=== PATIENT | male | born 1950 | race Caucasian/White ===

== ENCOUNTER → 2018-04-15 11:15 | Outpatient (CLI) | payer MEDICARE, OTHER, SELFPAY ==
[2018-04-15 13:24] LABS: AST(SGOT) 30 U/L (15-37); Alanine Aminotransfer ALT/SGPT 40 U/L (16-61); Alkaline Phosphatase 58 U/L (45-117); Anion Gap 13 (5-15); BUN 26 mg/dL (7-18); BUN/Creat Ratio 21.7 RATIO (10-20); Calcium,Total 9.1 mg/dL (8.5-10.1); Chloride 101 mmol/L (98-107); Cholesterol 182 mg/dL (200); EST Glomerular Filtration Rate 64 mL/min (>60); Est Glom Filt Rate - Afr Amer 78 mL/min (>60); Globulin 4.1 g/dL (2.2-4.2); Glucose 107 mg/dL (74-106); High Density Lipoprotein 42 mg/dL; PSA,Total - Annual Screen 2.57 ng/mL (0.00-4.00); Potassium 4.1 mmol/L (3.5-5.1); Protein, Total 8.1 g/dL (6.4-8.2); Sodium Level 138 mmol/L (136-145); Triglycerides 121 mg/dL; Very Low Density Lipoprotein 24 mg/dL (5-40)
== END ==
PROVIDERS: Family Provider Family Medicine; PCP Family Medicine; Visit Provider Family Medicine
DX: E11.9 Type 2 diabetes mellitus without complications (principal); Z12.5 Encounter for screening for malignant neoplasm of prostate
CPT/HCPCS: 36415; 80053; 80061; 84153; G0103

== ENCOUNTER → 2018-07-16 10:19 | Outpatient (CLI) | payer MEDICARE, OTHER, SELFPAY ==
--- NOTE | 2018-07-16 10:23 | RAD_ITS ---
STUDY: X-RAY - LEFT WRIST REASON FOR EXAM: Male, 67 years old. Pain TECHNIQUE: Three view(s) of the LEFT wrist were obtained. COMPARISON: None. FINDINGS: Bones: There are no acute osseous abnormalities. There is rotatory subluxation of the scaphoid. Joints: There is widening of the scapholunate joint. There is narrowing of the radiocarpal joint. Soft tissues: The soft tissues are unremarkable. Foreign body: None RAD/Wrist min 3 Views IMPRESSION: There is widening of the scapholunate joint consistent with chronic ligamentous injury. There are mild degenerative changes at the radioscaphoid joint. Electronically Signed: Aleida Arce MD at 10:56 EDT Tel Direct: [phone], Service support ,
== END ==
PROVIDERS: Family Provider Family Medicine; PCP Family Medicine; Referring Provider Family Medicine; Visit Provider Family Medicine
DX: M25.532 Pain in left wrist (principal)
CPT/HCPCS: 73110

== ENCOUNTER → 2019-01-15 | Outpatient (CLI) | payer MEDICARE, SELFPAY ==
[2019-01-15 10:42] LABS: ALB/GLOB Ratio 1.2 RATIO (0.9-2.4); AST(SGOT) 26 U/L (15-37); Alanine Aminotransfer ALT/SGPT 39 U/L (16-61); Alkaline Phosphatase 58 U/L (45-117); Anion Gap 5 (5-15); BUN 23 mg/dL (7-18); BUN/Creat Ratio 21.1 RATIO (10-20); Calcium,Total 8.7 mg/dL (8.5-10.1); Chloride 104 mmol/L (98-107); Cholesterol 185 mg/dL (200); Creatinine, Serum 1.09 mg/dL (0.70-1.30); EST Glomerular Filtration Rate 72 mL/min (>60); Est Glom Filt Rate - Afr Amer 87 mL/min (>60); Globulin 3.3 g/dL (2.2-4.2); Glucose 133 mg/dL (74-106); High Density Lipoprotein 43 mg/dL; Potassium 4.1 mmol/L (3.5-5.1); Protein, Total 7.3 g/dL (6.4-8.2); Sodium Level 135 mmol/L (136-145); Thyroid Stim Hormone (TSH) 1.08 uIU/mL (0.358-3.74); Triglycerides 142 mg/dL; Very Low Density Lipoprotein 28 mg/dL (5-40)
== END | disposition home or self-care (01) ==
PROVIDERS: Family Provider Family Medicine; PCP Family Medicine; Referring Provider Family Medicine; Visit Provider Family Medicine
DX: E11.9 Type 2 diabetes mellitus without complications (principal)
CPT/HCPCS: 36415; 80053; 80061; 84403; 84443

== ENCOUNTER → 2019-07-21 | Outpatient (CLI) | payer MEDICARE, BC, SELFPAY ==
[2019-07-21 12:35] LABS: AST(SGOT) 19 U/L (15-37); Alanine Aminotransfer ALT/SGPT 39 U/L (16-61); Alkaline Phosphatase 67 U/L (45-117); Anion Gap 7 (5-15); BUN 22 mg/dL (7-18); BUN/Creat Ratio 16.7 RATIO (10-20); Calcium,Total 9.5 mg/dL (8.5-10.1); Chloride 103 mmol/L (98-107); Cholesterol 191 mg/dL (200); Creatinine, Serum 1.32 mg/dL (0.70-1.30); EST Glomerular Filtration Rate 57 mL/min (>60); Est Glom Filt Rate - Afr Amer 69 mL/min (>60); Globulin 4.1 g/dL (2.2-4.2); Glucose 226 mg/dL (74-106); High Density Lipoprotein 45 mg/dL; Potassium 4.5 mmol/L (3.5-5.1); Protein, Total 8.1 g/dL (6.4-8.2); Sodium Level 136 mmol/L (136-145); Triglycerides 122 mg/dL; Very Low Density Lipoprotein 24 mg/dL (5-40)
== END | disposition home or self-care (01) ==
LOC: MFPLAB 10:38
PROVIDERS: Family Provider Family Medicine; PCP Family Medicine; Visit Provider Family Medicine
DX: E11.9 Type 2 diabetes mellitus without complications (principal)
CPT/HCPCS: 36415; 80053; 80061

== ENCOUNTER → 2020-01-22 09:49 | Outpatient (CLI) | payer MEDICARE, BC, SELFPAY ==
[2020-01-22 12:31] LABS: AST(SGOT) 29 U/L (15-37); Alanine Aminotransfer ALT/SGPT 46 U/L (16-61); Albumin, Serum 3.9 g/dL (3.2-5.0); Alkaline Phosphatase 57 U/L (45-117); Anion Gap 5 (5-15); BUN 23 mg/dL (7-18); BUN/Creat Ratio 19.5 RATIO (10-20); Calcium,Total 9.1 mg/dL (8.5-10.1); Chloride 106 mmol/L (98-107); Cholesterol 146 mg/dL (200); Creatinine, Serum 1.18 mg/dL (0.70-1.30); EST Glomerular Filtration Rate 65 mL/min (>60); Est Glom Filt Rate - Afr Amer 79 mL/min (>60); Globulin 3.8 g/dL (2.2-4.2); Glucose 112 mg/dL (74-106); High Density Lipoprotein 46 mg/dL; Potassium 4.2 mmol/L (3.5-5.1); Protein, Total 7.7 g/dL (6.4-8.2); Sodium Level 138 mmol/L (136-145); Thyroid Stim Hormone (TSH) 1.16 uIU/mL (0.358-3.74); Triglycerides 82 mg/dL; Very Low Density Lipoprotein 16 mg/dL (5-40)
== END ==
PROVIDERS: PCP Family Medicine; Visit Provider Family Medicine
DX: E11.9 Type 2 diabetes mellitus without complications (principal)
CPT/HCPCS: 36415; 80053; 80061; 84403; 84443

== ENCOUNTER → 2020-08-25 10:09 | Outpatient (CLI) | payer MEDICARE, BC, SELFPAY ==
[2020-08-25 12:36] LABS: Vitamin D,25 Hydroxy 53.1 ng/mL
== END ==
PROVIDERS: PCP Family Medicine; Referring Provider Family Medicine; Visit Provider Family Medicine
DX: E55.9 Vitamin D deficiency, unspecified (principal)
CPT/HCPCS: 36415; 82306

== ENCOUNTER → 2020-12-22 09:31 | Outpatient (CLI) | payer MEDICARE, BC, SELFPAY ==
[2020-12-24 11:21] LABS: ALB/GLOB Ratio 1.1 RATIO (0.9-2.4); AST(SGOT) 57 U/L (15-37); Alanine Aminotransfer ALT/SGPT 103 U/L (16-61); Albumin, Serum 4.1 g/dL (3.2-5.0); Alkaline Phosphatase 91 U/L (45-117); Anion Gap 6 (5-15); BUN 19 mg/dL (7-18); BUN/Creat Ratio 17.9 RATIO (10-20); Calcium,Total 9.3 mg/dL (8.5-10.1); Chloride 102 mmol/L (98-107); Creatinine, Serum 1.06 mg/dL (0.70-1.30); EST Glomerular Filtration Rate 74 mL/min (>60); Est Glom Filt Rate - Afr Amer 89 mL/min (>60); Globulin 3.8 g/dL (2.2-4.2); Glucose 98 mg/dL (74-106); PSA,Total- Diagnostic 1.93 ng/mL (0.0-4.0); Potassium 4.2 mmol/L (3.5-5.1); Protein, Total 7.9 g/dL (6.4-8.2); Sodium Level 133 mmol/L (136-145)
[2020-12-24 11:57] LABS: Hepatitis C Antibody Non-Reactive (Nonreactive); Vitamin D,25 Hydroxy 48.1 ng/mL
== END ==
PROVIDERS: PCP Family Medicine; Referring Provider Family Medicine; Visit Provider Family Medicine
DX: Z11.59 Encounter for screening for other viral diseases (principal); E55.9 Vitamin D deficiency, unspecified; E11.9 Type 2 diabetes mellitus without complications; R94.8 Abnormal results of function studies of other organs and systems; Z12.5 Encounter for screening for malignant neoplasm of prostate
CPT/HCPCS: 36415; 80053; 82306; 84153; 86803

== ENCOUNTER 2021-10-03 09:23 | Outpatient (CLI) | payer MEDICARE, BC, SELFPAY ==
[2021-10-03 10:49] LABS: AST(SGOT) 40 U/L (15-37); Alanine Aminotransfer ALT/SGPT 54 U/L (16-61); Albumin, Serum 4.1 g/dL (3.2-5.0); Alkaline Phosphatase 71 U/L (45-117); BUN 27 mg/dL (7-18); BUN/Creat Ratio 25.7 RATIO (10-20); Calcium,Total 9.1 mg/dL (8.5-10.1); Cholesterol 141 mg/dL (200); Creatinine, Serum 1.05 mg/dL (0.70-1.30); EST Glomerular Filtration Rate 74 mL/min (>60); Est Glom Filt Rate - Afr Amer 90 mL/min (>60); Globulin 4.1 g/dL (2.2-4.2); Glucose 146 mg/dL (74-106); Protein, Total 8.2 g/dL (6.4-8.2)
[2021-10-03 10:50] LABS: Anion Gap 8 (5-15); Chloride 105 mmol/L (98-107); High Density Lipoprotein 47 mg/dL; Potassium 4.1 mmol/L (3.5-5.1); Sodium Level 138 mmol/L (136-145); Triglycerides 81 mg/dL; Very Low Density Lipoprotein 16 mg/dL (5-40)
== END 2021-10-03 23:59 | disposition short-term general hospital (02) ==
LOC: MFPLAB 09:28
PROVIDERS: PCP Family Medicine; Referring Provider Family Medicine; Visit Provider Family Medicine
DX: E11.9 Type 2 diabetes mellitus without complications (principal)
CPT/HCPCS: 36415; 80053; 80061

== ENCOUNTER → 2022-04-04 | Outpatient (CLI) | payer MEDICARE, BC, SELFPAY ==
[2022-04-04 12:55] LABS: AST(SGOT) 54 U/L (15-37); Alanine Aminotransfer ALT/SGPT 100 U/L (16-61); Albumin, Serum 3.8 g/dL (3.2-5.0); Alkaline Phosphatase 61 U/L (45-117); Anion Gap 7 (5-15); BUN 21 mg/dL (7-18); BUN/Creat Ratio 20.2 RATIO (10-20); Calcium,Total 9.1 mg/dL (8.5-10.1); Chloride 107 mmol/L (98-107); Cholesterol 139 mg/dL (200); Creatinine, Serum 1.04 mg/dL (0.70-1.30); EST Glomerular Filtration Rate 75 mL/min (>60); Est Glom Filt Rate - Afr Amer 91 mL/min (>60); Globulin 3.9 g/dL (2.2-4.2); Glucose 121 mg/dL (74-106); High Density Lipoprotein 48 mg/dL; Potassium 4.1 mmol/L (3.5-5.1); Protein, Total 7.7 g/dL (6.4-8.2); Sodium Level 138 mmol/L (136-145); Thyroid Stim Hormone (TSH) 1.36 uIU/mL (0.358-3.74); Triglycerides 51 mg/dL; Very Low Density Lipoprotein 10 mg/dL (5-40)
[2022-04-04 23:32] LABS: GGTP 80 U/L (15-85)
[2022-04-05 08:39] LABS: Hepatitis B Surface Antibody Reactive; Hepatitis C Antibody Non-Reactive (Nonreactive)
== END | disposition home or self-care (01) ==
LOC: MFPLAB 09:34
PROVIDERS: PCP Family Medicine; Visit Provider Family Medicine
DX: R79.89 Other specified abnormal findings of blood chemistry (principal); E11.9 Type 2 diabetes mellitus without complications; Z12.5 Encounter for screening for malignant neoplasm of prostate
CPT/HCPCS: 36415; 80053; 80061; 80074; 82977; 84153; 84403; 84443; 86706; 86708; 86803; G0103

== ENCOUNTER → 2022-04-12 | Outpatient (CLI) | payer MEDICARE, BC, SELFPAY ==
--- NOTE | 2022-04-12 08:17 | US_ITS ---
STUDY: ABDOMINAL ULTRASOUND - RIGHT UPPER QUADRANT REASON FOR VISIT: Male, 71 years old Elevated LFTs TECHNIQUE: Ultrasound evaluation of the right upper quadrant was performed with real-time and static araujo-scale imaging. TECHNICAL QUALITY: Adequate. COMPARISON: None. FINDINGS: LIVER: Length 17.1 cm. Heterogeneous with mildly increased echogenicity. GALLBLADDER Size: Distended. Stones: None. Wall thickness: Not thickened. 2 mm. Pericholecystic fluid: None. Sonographic Johnson sign: Negative. EXTRAHEPATIC BILE DUCTS: Common bile duct 2 mm not dilated. PANCREAS: Not well visualized. RIGHT KIDNEY: Fullness of the right renal pelvis. Mildly dilated proximal ureter. No hydronephrosis. 2.7 x 2.2 x 2.3 cm cyst. ASCITES: None. US/Abdomen Limited IMPRESSION: Mild cardiomegaly with probable fatty infiltration. Right renal pelviectasis and dilated proximal right ureter without significant hydronephrosis. This is nonspecific, can be seen with ureteral calculus or recently passed calculus. Electronically Signed: Yenifer Cardoso MD at 6:17 EDT ,
== END | disposition home or self-care (01) ==
PROVIDERS: PCP Family Medicine; Referring Provider Family Medicine; Visit Provider Family Medicine
DX: R79.89 Other specified abnormal findings of blood chemistry (principal)
CPT/HCPCS: 76705

== ENCOUNTER → 2022-10-09 | Outpatient (CLI) | payer MEDICARE, BC, SELFPAY ==
[2022-10-09 09:53] LABS: Hematocrit 46.4 % (40-54); Hemoglobin 15.6 g/dL (13.0-16.5); Mean Corp Hgb Conc 33.6 g/dL (32-36); Mean Corpuscular Hgb 31.3 pg (27.0-32.0); Mean Platelet Vol. 10.2 fl (6.2-12.0); Platelet Count 261 K/mm3 (150-450); RBC Distribution Width CV 12.5 % (11.6-14.6); RBC Distribution Width SD 42.6 fl (35.1-43.9); Red Blood Count 4.99 M/mm3 (4.6-6.2); White Blood Count 10.2 K/mm3 (4.4-11.0)
[2022-10-09 09:57] LABS: Erythrocyte Sedimentation Rate 16 mm/hr (0-20)
[2022-10-09 10:35] LABS: Vitamin B12 670 pg/mL (211-911); Vitamin D,25 Hydroxy 63.5 ng/mL
[2022-10-09 10:39] LABS: AST(SGOT) 60 U/L (15-37); Alanine Aminotransfer ALT/SGPT 99 U/L (16-61); Albumin, Serum 3.8 g/dL (3.2-5.0); Alkaline Phosphatase 80 U/L (45-117); Anion Gap 9 (5-15); BUN 22 mg/dL (7-18); BUN/Creat Ratio 20.6 RATIO (10-20); Calcium,Total 9.2 mg/dL (8.5-10.1); Chloride 106 mmol/L (98-107); Cholesterol 156 mg/dL (200); Creatinine, Serum 1.07 mg/dL (0.70-1.30); EST Glomerular Filtration Rate 72 mL/min (>60); Est Glom Filt Rate - Afr Amer 88 mL/min (>60); Globulin 3.8 g/dL (2.2-4.2); Glucose 158 mg/dL (74-106); High Density Lipoprotein 48 mg/dL; Potassium 4.4 mmol/L (3.5-5.1); Protein, Total 7.6 g/dL (6.4-8.2); Sodium Level 140 mmol/L (136-145); Thyroid Stim Hormone (TSH) 1.51 uIU/mL (0.358-3.74); Triglycerides 80 mg/dL; Very Low Density Lipoprotein 16 mg/dL (5-40)
== END | disposition home or self-care (01) ==
LOC: MFPLAB 08:32
PROVIDERS: PCP Family Medicine; Visit Provider Family Medicine
DX: R41.89 Other symptoms and signs involving cognitive functions and awareness (principal); E11.9 Type 2 diabetes mellitus without complications; R29.898 Other symptoms and signs involving the musculoskeletal system; E55.9 Vitamin D deficiency, unspecified
CPT/HCPCS: 36415; 80053; 80061; 82306; 82607; 84443; 85027; 85652

== ENCOUNTER → 2022-10-30 | Outpatient (CLI) | payer MEDICARE, BC, SELFPAY ==
--- NOTE | 2022-10-30 | LES_PTH ---
PATIENT: LAILA STEINER LOC: [facility] U#:[id number] AGE/SX: 72/M ROOM: RE10/30/[address]: Dr. Tate Alcazar MD : 1950 BED: DIS: 10/30/2022 SPEC #: [id number] RECD: 10/30/22 15:07 STATUS: LUZ MARIA RAMÍREZNeisha #: [id number] EVER: 10/30/22 00:[address]: Tate Alcazar DEPT: SURGICAL PATHOLOGY RECD BY: Vanessa Loera Tissues: Skin of back, NOS Procedures: Special Stain Group I Surgery Specimen Level IV GMS Stain (control) HEADER OPERATION: Skin excision shave PRE-OP DIAGNOSIS: Suspicious skin lesion, rule out BCC TISSUE SUBMITTED: Back lesion MICROSCOPIC DIAGNOSIS Back lesion, shave biopsy: Focal ulceration and associated acute and chronic inflammation. Focal acanthosis. Negative for malignancy. See comment. MARILYN:gideon 11/01/2022 COMMENT Special stain for fungi is negative for organisms; matched control is appropriate. Clinical correlation and appropriate follow-up are necessary. Immunohistochemistry ([id number]) supports the above diagnosis. Case has been reviewed in consultation with Dr. Santos who concurs with the above diagnosis. IDC:AM MICROSCOPIC DESCRIPTION Slides are reviewed. GROSS DESCRIPTION Received in fixative is one container labeled with the patient's name and designated back lesion. The specimen consists of a light underwood shave biopsy of skin measuring 1.0 x 1.0 x <0.1 cm. The specimen is totally submitted in one cassette. / AM:gideon 10/31/2022 TC:2 CPT: 19053, 65964
--- NOTE | 2022-10-30 | IMM_PTH ---
PATIENT: LAILA STEINER LOC: [facility] U#:[id number] AGE/SX: 72/M ROOM: RE10/30/[address]: Dr. Tate Alcazar MD : 1950 BED: DIS: 10/30/2022 SPEC #: [id number] RECD: 11/07/22 12:33 STATUS: LUZ MARIA AILEEN #: [id number] EVER: 10/30/22 00:[address]: Tate Alcazar DEPT: IMMUNOHISTOCHEMISTRY RECD BY: Inocencia Salinas Tissues: Skin of back, NOS Procedures: CK5-6 (add) P40 (add) Vimentin (initial) PHYSICIAN & INSTITUTION [place] [id number] SPECIMEN INFORMATION: Tissue Source: Back lesion Clinical Info: Back lesion Specimen Number: [id number] CPT code: 23185, 83404 x2 METHODOLOGY: Deparaffinized sections of prefer/formalin-fixed tissue or PAP/DQ stained slides are incubated with monoclonal/polyclonal antibodies/oligonucleotide probes. Localization is made via biotin free immunoperoxidase method. Appropriate controls are performed and reacted as expected. Results on target cell population are indicated in the following table: RESULTS: ANTIBODY / CLONE RESULT P40 (BC28) negative CK5-6 (D5 & 1684) negative Vimentin (V9) positive These tests were developed and their performance characteristics determined by [facility]. They may not have been cleared or approved by the U.S. Food and Drug Administration. The FDA has determined that such clearance or approval is not necessary. The above immunohistochemical/dualISH markers are ordered and reviewed by the Pathologist. INTERPRETATION: Back lesion, shave biopsy: Negative for malignancy. MARILYN:gideon 11/08/2022 Case has been reviewed in consultation with Dr. Santos who concurs with the above diagnosis. IDC:AM
== END | disposition home or self-care (01) ==
LOC: LABSPEC 15:20
PROVIDERS: PCP Family Medicine; Referring Provider Family Medicine; Visit Provider Family Medicine
DX: L98.9 Disorder of the skin and subcutaneous tissue, unspecified (principal)
CPT/HCPCS: 88305; 88312; 88341; 88342

== ENCOUNTER → 2023-04-17 | Outpatient (CLI) | payer MEDICARE, BC, SELFPAY ==
[2023-04-17 12:11] LABS: Hematocrit 48.1 % (40-54); Mean Corp Hgb Conc 33.3 g/dL (32-36); Mean Corpuscular Hgb 31.3 pg (27.0-32.0); Mean Corpuscular Volume 94.1 fL (80-94); Mean Platelet Vol. 10.2 fl (6.2-12.0); Platelet Count 259 K/mm3 (150-450); RBC Distribution Width CV 12.5 % (11.6-14.6); RBC Distribution Width SD 43.4 fl (35.1-43.9); Red Blood Count 5.11 M/mm3 (4.6-6.2); White Blood Count 5.9 K/mm3 (4.4-11.0)
[2023-04-17 12:21] LABS: Insulin 8.4 mU/L (2.6-37.6)
[2023-04-17 12:37] LABS: Anion Gap 7 (5-15); BUN 21 mg/dL (7-18); BUN/Creat Ratio 17.6 RATIO (10-20); Calcium,Total 9.1 mg/dL (8.5-10.1); Chloride 103 mmol/L (98-107); Cholesterol 144 mg/dL (200); Creatinine, Serum 1.19 mg/dL (0.70-1.30); EST Glomerular Filtration Rate 64 mL/min (>60); Est Glom Filt Rate - Afr Amer 77 mL/min (>60); Glucose 165 mg/dL (74-106); High Density Lipoprotein 47 mg/dL; Iron 101 ug/dL (65-175); Potassium 4.2 mmol/L (3.5-5.1); Sodium Level 134 mmol/L (136-145); Thyroid Stim Hormone (TSH) 1.16 uIU/mL (0.358-3.74); Triglycerides 97 mg/dL; Very Low Density Lipoprotein 19 mg/dL (5-40)
[2023-04-18 13:08] LABS: C-Peptide 3.4 ng/mL (1.1-4.4)
== END | disposition home or self-care (01) ==
LOC: MFPLAB 10:00
PROVIDERS: PCP Family Medicine; Visit Provider Family Medicine
DX: E11.40 Type 2 diabetes mellitus with diabetic neuropathy, unspecified (principal); R20.9 Unspecified disturbances of skin sensation
CPT/HCPCS: 36415; 80048; 80061; 83525; 83540; 84443; 84681; 85027

== ENCOUNTER → 2023-04-30 | Outpatient (CLI) | payer MEDICARE, BC, SELFPAY | END | disposition home or self-care (01) | LOC: LABSPEC 16:33 | PROVIDERS: PCP Family Medicine; Visit Provider Family Medicine | DX: R35.0 Frequency of micturition (principal) | CPT/HCPCS: 87086; 87088 ==

== ENCOUNTER → 2023-05-12 | Outpatient (CLI) | payer MEDICARE, BC, SELFPAY ==
--- NOTE | 2023-05-12 07:15 | MRI_ITS ---
STUDY: MRI BRAIN WITHOUT CONTRAST REASON FOR EXAM: Male, 72 years old. Gait instability TECHNIQUE: Standardized multiplanar fat and water weighted pulse sequences were obtained. COMPARISON: None. FINDINGS: There is moderate cerebral atrophy with widening of the extra-axial spaces and ventricular dilatation. There are multiple white matter hyperintensities, distributed throughout the deep white matter tracts of the cerebral hemispheres, consistent with moderate chronic white matter ischemic changes. There is no evidence for recent intracranial ischemia or other cause of cytotoxic edema on diffusion weighted imaging (DWI). Normal T2* images of the brain without demonstrated susceptibility artifact. There is no demonstrated hemosiderin stain. Normal bilateral basal ganglia. Normal thalami. There is no extra-axial fluid accumulation. Normal flow voids within the major intracranial circulation suggesting patency by spin echo criteria. Normal sella turcica, pituitary gland, infundibular stalk, optic chiasm and hypothalamus. Normal tectal plate and pineal gland. Normal midbrain, estefani and medulla. Normal cerebellum. Normal basal cisterns. Normal bilateral temporal bones. Normal bilateral internal auditory canals. There are bilateral ocular lens implants with otherwise normal intraorbital contents. Normal visualized paranasal sinuses. Normal calvarium and skull base. Normal visualized soft tissue structures. Normal visualized upper cervical spine. MRI/Brain without Contrast IMPRESSION: Involutional changes of the brain, as described above. No acute infarct. Electronically Signed: Jose Vences MD at 22:51 EDT ,
== END | disposition home or self-care (01) ==
LOC: MRI 07:08
PROVIDERS: PCP Family Medicine; Referring Provider Family Medicine; Visit Provider Family Medicine
DX: R26.81 Unsteadiness on feet (principal)
CPT/HCPCS: 70551

== ENCOUNTER 2023-07-11 09:00 | Outpatient (RCR) | payer MEDICARE, BC, SELFPAY ==
--- NOTE | 2023-05-16 12:05 | HP.PTEVAL_ITS ---
Patient's Visit Information Visit Information Visit Information: LAILA STEINER is a 72 year old M referred to Physical Therapy by Dr. Nelson Alcazar MD with a diagnosis of GAIT INSTABILITY. Date of Evaluation: 05/16/23 Physical Therapist: Roland Haynes PT, Cert MDT, OCS Visit Plan Frequency: 2x /Week Duration: 4 Weeks Plan: PT INTEVENTIONS PROGRESSIVE GAIT /BALANCE PROGAM FOR PARKINSONS , BEL STRENGTHENING AND FUNCTIONAL STRENGTHENING Subjective Subjective: This 72 y/o male presents to physical therapy with gait instability. Patient noticed shuffle steps ,decrease memory ,weaken legs. Most recently fell on boat. Patient was walking 3 miles/day and down 1mile day because fatigue. But family has noticed decrease gait for ~ 3years .Patient seen DR and diagnosed with Parkinson's and confirmed by MRI. Plan to see neurologist . Denies pain. Patient has difficulty sleeping. C/O paresthesia in feet. Patient has difficulty with stairs which patient trips. Denies pain. Patient becomes fatigue easy. Patient also become emotional with condition. Patient ranch with 2 steps no rail. Patient is I with bathing/dressing. Patient is able to to outside work and yard work. SOCIAL: VOCATION: RETIRED Objective Objective: POSTURE: mild forward posture GAIT: reciprocal pattern mild forward posture slow jose l mild forward posture NEURO: c/o paresthesia feet ,reflexes 2/3 Achilles and patella SYMMTRIES: align MMT: (peak force) quads right 34.4 ,left 29.1, hamstrings 14.8 right ,left 15.6 ,hip flexion 25.7 right ,25.5 ,left STAIRS: alternating with rail Balance/Special Test Scores Functional Gait Assessment Score: 20 % Disability: 33.3400 CATSIB Score (Max score 120 seconds): 76 Lower Extremity Functional Score: 41 30 Second Chair Rise Test Seconds: 12 Goals Goal 1:: Patient to be I with HEP Goal Time Frame: 4-6 Weeks Goal 2:: Patient improve CATSIB by 5-10 points to improve balance. Goal Time Frame: 4-6 Weeks Goal 3:: Patient to improve LFES score by 10 points to improve gait and function Goal Time Frame: 4-6 Weeks Goal 4:: Patient to improve functional gait assessment by 5 points to improve balance and function Goal Time Frame: 4-6 Weeks Goal 5:: Patient to improve 30sec sit-stand x5 reps to improve functional strength Goal Time Frame: 4-6 Weeks Goal 6:: Patient to improve peak force BLE by 5-10 # to improve gait and function Rehabilitation Potential Physical Therapy Diagnosis: Patient has recently been diagnosed with Parkinson's with decrease gait ,endurance and lower extremity strength thus benefit from skilled PT Rehabilitation Potential: Good Anticipated Interventions Patient/Client Instruction: Educate patient on: Condition and Plan of Care For the Purpose of:: To decrease pain, To increase ROM, To improve muscle performance and motor function, To improve ability to perform ADL's, To increase tolerance to activity/condition/position, To improve ability of physical actions for home/community/work/leisure, To improve health of tissue, To decrease soft tissue restriction, To increase flexibility/ROM, To improve endurance, To improve balance and To improve tolerance to ADL's Therapeutic Exercise to Include: Strength training, Endurance training, Balance training, Postural training, Flexibilty training, Gait and locomotor training and Active ROM Comment: BLE For the Purpose of:: To decrease pain, To improve muscle performance and motor function, To increase tolerance to activity/condition/position, To improve performance and independence with ADL's, To improve ability of physical actions for home/community/work/leisure, To improve gait and locomotor functions, To improve health of tissue, To decrease soft tissue restriction, To increase flexibility/ROM, To improve endurance and To improve balance Text: Thank you for the opportunity to evaluate your patient. For Medicare and Medicare HMO plans, please review the plan of care and approve it. It will need to be FAXED BACK to us at [phone] for Medicare purposes. For Medicare only, by signing this I certify the plan of care. Please let me know if there are questions or concerns regarding this plan of care. Physician Signature: Date:
--- NOTE | 2023-06-14 09:24 | HP.PTREVAL_ITS ---
Re-Evaluation Intro: Dr. Nelson Alcazar MD, It has been my pleasure to treat LAILA STEINER over the last 10 visits for GAIT INSTABILITY. Please see the progress note below for an update on the physical therapy plan of care! Subjective Subjective: My legs where very fatigue ,balance improving Objective Objective/Function: Objective: POSTURE: mild forward posture GAIT: reciprocal pattern mild forward posture slow jose l mild forward posture NEURO: c/o paresthesia feet ,reflexes 2/3 Achilles and patella SYMMTRIES: align MMT: (peak force) quads right 44.4 ,left 45.1, hamstrings 41,2 right ,left 37.6 ,hip flexion 35.7 right ,37.5 ,left STAIRS: alternating with rail Plan Plan Plan: PT INTEVENTIONS PROGRESSIVE GAIT /BALANCE PROGAM FOR PARKINSONS , BEL STRENGTHENING AND FUNCTIONAL STRENGTHENIN Balance/Gait/Functional tests Balance/Special Test Scores Functional Gait Assessment Score: 21 % Disability: 30.0000 CATSIB Score (Max score 120 seconds): 85 Lower Extremity Functional Score: 53 30 Second Chair Rise Test Seconds: 15 Goals Goals Goal 1:: Patient to be I with HEP Goal Time Frame: 4-6 Weeks Goal Progress: Progressing Goal 2:: Patient improve CATSIB by 5-10 points to improve balance. Goal Time Frame: 4-6 Weeks Goal Progress: Progressing Goal 3:: Patient to improve LFES score by 10 points to improve gait and function ( new goal) Goal Time Frame: 4-6 Weeks Goal 4:: Patient to improve functional gait assessment by 5 points to improve balance and function (new goal0 Goal Time Frame: 4-6 Weeks Goal 5:: Patient to improve 30sec sit-stand x5 reps to improve functional strength Goal Time Frame: 4-6 Weeks Goal Progress: Progressing Goal 6:: Patient to improve peak force BLE by 5-10 # to improve gait and function( new goal) Goal Time Frame: 4-6 Weeks Anticipated Interventions Anticipated Interventions Patient/Client Instruction: Educate patient on: Condition and Plan of Care For the Purpose of:: To decrease pain, To increase ROM, To improve muscle performance and motor function, To improve ability to perform ADL's, To increase tolerance to activity/condition/position, To improve ability of physical actions for home/community/work/leisure, To improve health of tissue, To decrease soft tissue restriction, To increase flexibility/ROM, To improve endurance, To improve balance and To improve tolerance to ADL's Therapeutic Exercise to Include: Strength training, Endurance training, Balance training, Postural training, Flexibilty training, Gait and locomotor training and Active ROM Comment: BLE For the Purpose of:: To decrease pain, To improve muscle performance and motor function, To increase tolerance to activity/condition/position, To improve performance and independence with ADL's, To improve ability of physical actions for home/community/work/leisure, To improve gait and locomotor functions, To improve health of tissue, To decrease soft tissue restriction, To increase flexibility/ROM, To improve endurance and To improve balance Re-Evaluation Ending Re-evaluation ending: Please do not hesitate to contact me at [phone] by phone or if you have questions or concerns regarding this new plan of care! Sincerely, Roland Haynes, PT, Cert MDT, OCS
--- NOTE | 2023-07-11 09:41 | HP.PTDCSUM ---
Discharge Summary D/C summary: It has been my pleasure to treat LAILA STEINER referred by Dr. Nelson Alcazar MD, with the diagnosis of GAIT INSTABILITY for a total of 19 visit(s). Discharge Date: Please see the following information for a summary of their discharge status. Subjective Subjective: Overall doing better. No pain C/O knee pain Plan to get carotid resting Overall Improvement % Improvement: 75 Objective Objective/Function: pt is possibly joining the gym to do indep workouts. Filled out a gym log sheet for pt and given a copy in case pt does come on his own . Reviewed machines and the set ups to work on independence w/ them. Goals Goal 1:: Patient to be I with HEP Goal Progress: Goal Met Goal 2:: Patient improve CATSIB by 5-10 points to improve balance. Goal Progress: Progressing Goal 3:: Patient to improve LFES score by 10 points to improve gait and function( new goal) Goal Progress: Goal Met Goal 4:: Patient to improve functional gait assessment by 5 points to improve balance and function (new goal0 Goal Progress: Goal Met Goal 5:: Patient to improve 30sec sit-stand x5 reps to improve functional strength Goal Progress: Goal Met Goal 6:: Patient to improve peak force BLE by 5-10 # to improve gait and function( new goal) Goal Progress: Progressing Plan Plan: D/C D/C Information d/c sentence: If there are questions or concerns regarding this patient's physical therapy, please feel free to call me at [phone]. Thank you for the referral of this patient. Sincerely, Roland Haynes, PT, Cert MDT, OCS Balance/Gait/Functional tests Balance/Special Test Scores Functional Gait Assessment Score: 30 % Disability: 0 CATSIB Score (Max score 120 seconds): 120 Lower Extremity Functional Score: 53 TUG Test Time Seconds: 8.96 Tug Test: <10 sec.=free mobile 30 Second Chair Rise Test Seconds: 18 Improvement % Improvement: 75
== END 2023-07-11 19:00 | disposition home or self-care (01) ==
LOC: PT 09:00
PROVIDERS: PCP Family Medicine; Referring Provider Family Medicine; Visit Provider Family Medicine
DX: R26.81 Unsteadiness on feet (principal)
CPT/HCPCS: 97110; 97162; 97530

== ENCOUNTER → 2023-07-18 | Outpatient (CLI) | payer MEDICARE, BC, SELFPAY ==
--- NOTE | 2023-07-18 14:05 | CT_ITS ---
STUDY: CTA NECK WITH CONTRAST REASON FOR EXAM: Male, 72 years old. Postural dizziness RADIATION DOSAGE (If Supplied By Facility): CTDIvol = ( 21.18 ) mGy, DLP = ( 537.20 ) mGycm TECHNIQUE: CT angiography with multi-detector data acquisition was performed from the aortic arch to the skull base following intravenous administration of IV 100mL Isovue-370. MIP images were reconstructed from the axial data set. Post-processing of the angiographic images was performed, with multiplanar reformation and 3D reconstruction. Individualized dose optimization techniques were used for this CT. COMPARISON: None. FINDINGS: Mild heterogeneous appearance of the thyroid gland. AORTIC ARCH: There is atherosclerotic calcific plaque formation of the aortic arch and great vessels arising from the aortic arch, without a hemodynamically significant stenosis. There is a normal origin of the brachiocephalic, left common carotid, and left subclavian arteries. Calcific plaque at the origin of the left subclavian artery as well as the left common carotid artery and right brachiocephalic artery. RIGHT CAROTID ARTERIES: There is atherosclerotic plaque formation of the common carotid artery, but without a hemodynamically significant stenosis. Normal right common carotid bulb. There is moderate atherosclerotic plaque formation of the origin of the right internal carotid artery with an estimated stenosis of 50-69% stenosis. Normal visualized cervical portion of the right internal carotid artery. Normal origin of the right external carotid artery (ECA). LEFT CAROTID ARTERIES: There is atherosclerotic plaque formation of the common carotid artery, but without a hemodynamically significant stenosis. Normal left common carotid bulb. There is moderate atherosclerotic plaque formation of the origin of the left internal carotid artery with an estimated stenosis of 50-69% stenosis. Normal visualized cervical portion of the left internal carotid artery. Normal origin of the left external carotid artery (ECA). VERTEBRAL ARTERIES: Normal bilateral vertebral arteries. CT/CTA Neck W/WO Contrast IMPRESSION: Calcific plaques seen at the origin of the right and left internal carotid arteries causing between 50 and 69% luminal narrowing. Electronically Signed: Lawrence Shah MD at 15:22 EDT ,
[2023-07-18 14:38] LABS: CREATININE FINGERSTICK 1.3 mg/dL (0.70-1.30)
== END | disposition home or self-care (01) ==
LOC: CT 14:04
PROVIDERS: PCP Family Medicine; Referring Provider Family Medicine; Visit Provider Family Medicine
DX: R42 Dizziness and giddiness (principal)
CPT/HCPCS: 70498; Q9967

== ENCOUNTER → 2023-10-03 | Outpatient (CLI) | payer MEDICARE, BC, SELFPAY ==
[2023-10-03 10:26] LABS: Hematocrit 44.6 % (40-54); Mean Corp Hgb Conc 33.6 g/dL (32-36); Mean Corpuscular Hgb 31.7 pg (27.0-32.0); Mean Corpuscular Volume 94.3 fL (80-94); Mean Platelet Vol. 10.2 fl (6.2-12.0); Platelet Count 253 K/mm3 (150-450); RBC Distribution Width CV 12.1 % (11.6-14.6); RBC Distribution Width SD 42.3 fl (35.1-43.9); Red Blood Count 4.73 M/mm3 (4.6-6.2); White Blood Count 5.5 K/mm3 (4.4-11.0)
[2023-10-03 11:07] LABS: Vitamin B12 595 pg/mL (211-911)
[2023-10-03 11:42] LABS: AST(SGOT) 119 U/L (15-37); Alanine Aminotransfer ALT/SGPT 98 U/L (16-61); Alkaline Phosphatase 81 U/L (45-117); Anion Gap 7 (5-15); BUN 18 mg/dL (7-18); BUN/Creat Ratio 17.6 RATIO (10-20); Calcium,Total 9.1 mg/dL (8.5-10.1); Chloride 103 mmol/L (98-107); Creatinine, Serum 1.02 mg/dL (0.70-1.30); EST Glomerular Filtration Rate 76 mL/min (>60); Est Glom Filt Rate - Afr Amer 92 mL/min (>60); Globulin 4.2 g/dL (2.2-4.2); Glucose 176 mg/dL (74-106); Protein, Total 8.2 g/dL (6.4-8.2); Sodium Level 136 mmol/L (136-145); Thyroid Stim Hormone (TSH) 2.12 uIU/mL (0.358-3.74)
[2023-10-06 16:09] LABS: Free Kappa Light Chains 32.4 mg/L (3.3-19.4); Free Lambda Light Chains 17.8 mg/L (5.7-26.3)
== END | disposition home or self-care (01) ==
PROVIDERS: PCP Family Medicine; Referring Provider Psychiatry & Neurology Neurology; Visit Provider Psychiatry & Neurology Neurology
DX: G62.9 Polyneuropathy, unspecified (principal); G31.84 Mild cognitive impairment of uncertain or unknown etiology
CPT/HCPCS: 36415; 80053; 82607; 82746; 83883; 84425; 84443; 85027

== ENCOUNTER → 2023-10-15 | Outpatient (CLI) | payer MEDICARE, BC, SELFPAY ==
--- NOTE | 2023-10-15 10:15 | MRI_ITS ---
STUDY: MRI CERVICAL SPINE WITHOUT CONTRAST REASON FOR EXAM: Male, 72 years old. neck pain; gait disorder TECHNIQUE: Standardized fat and water weighted pulse sequences were obtained in the sagittal and axial planes. COMPARISON: CTA of the neck dated July 18, 2023 FINDINGS: Normal foramen magnum and brainstem-cervical cord junction. Normal craniovertebral junction. Normal anterior atlantoaxial articulation. Normal odontoid process. There is reversal of the normal cervical lordosis. C2-3: Normal endplates. Diffuse disc desiccation. Normal disc height and morphology. Normal central canal and intervertebral neural foramina. C3-4: Normal endplates. Diffuse disc desiccation with mild posterior disc space narrowing and slight annular bulging. Superimposed midline shallow disc protrusion with mild thecal sac compression and focal central canal stenosis. Normal intervertebral neural foramina. C4-5: Normal endplates. Diffuse disc desiccation. Normal disc height and morphology. Normal central canal and right neural foramen. Mild left foraminal stenosis due to uncovertebral facet joint hypertrophy. C5-6: Normal endplates. Moderate to significant disc space narrowing with a diffuse disc osteophyte complex causing mild compression on anterior midline and left side of the cord and contributing to mild central canal stenosis. Moderate to significant bilateral foraminal stenosis with nerve root compression due to combined uncovertebral facet joint hypertrophy. C6-7: Normal endplates. Diffuse disc desiccation with mild posterior disc space narrowing and slight annular bulging. Normal central canal. Mild to moderate bilateral foraminal stenosis with impingement due to uncovertebral and facet joint hypertrophy. C7-T1: Normal endplates. Normal disc height, signal and morphology. Normal central canal and intervertebral neural foramina. Normal cervical cord. There is no demonstrated cervical cord syrinx cavity. Normal visualized soft tissue structures. MRI/Spine Cervical (Routine) IMPRESSION: 1. Multilevel degenerative changes, as described above. 2. Mild central canal stenosis with compression anterior aspect of the cord at C5-C6 from a disc osteophyte complex 3. Multilevel foraminal stenosis Electronically Signed: Mazin Renee MD at 14:01 EST ,
== END | disposition home or self-care (01) ==
LOC: MRI 09:37
PROVIDERS: PCP Family Medicine; Referring Provider Psychiatry & Neurology Neurology; Visit Provider Psychiatry & Neurology Neurology
DX: M54.2 Cervicalgia (principal); R26.9 Unspecified abnormalities of gait and mobility
CPT/HCPCS: 72141

== ENCOUNTER → 2023-11-07 | Outpatient (CLI) | payer MEDICARE, BC, SELFPAY ==
--- NOTE | 2023-11-07 12:02 | NEURO ---
NCS and/or EMG Patient Report Ordering Doctor: Jose Guadalupe Moctezuma DATE OF SERVICE: 11/07/23 Henrique presents for electrodiagnostic testing of the lower limbs. He reports intermittent numbness and tingling in the lower legs. He reports the symptoms been present for approximately 1 year. He reports intermittent back pain but denies radiation into the lower limbs. He is a diabetic. Electrodiagnostic findings: Left peroneal motor nerve demonstrates normal distal latency and amplitude with normal conduction velocity. Right peroneal motor nerve demonstrates normal distal latency and amplitude with mildly reduced conduction velocity. Tibial motor responses within normal limits bilaterally. Prolonged tibial and peroneal F?waves. Prolonged H?reflex bilaterally. Prolonged left sural latency. Prolonged superficial peroneal latency bilaterally. Needle EMG testing was performed in the lower limbs. All muscles tested showed no evidence of denervation with normal motor unit action potentials. Electrodiagnostic impression: This is an abnormal study in the lower limbs. 1. Electrodiagnostic findings suggestive of peripheral polyneuropathy, sensory greater than motor. This is likely secondary to longstanding diabetes. 2. There is no electrodiagnostic evidence for lumbosacral radiculopathy. Multi Select Codes Neurology Neurology Interp Codes: 21254-71 Musc test done w/n test comp (interp) (2) and 94263-41 Nrv cndj test 9-10 studies (interp)
== END | disposition home or self-care (01) ==
LOC: PSN 06:47
PROVIDERS: PCP Family Medicine; Referring Provider Psychiatry & Neurology Neurology; Visit Provider Psychiatry & Neurology Neurology
DX: R20.0 Anesthesia of skin (principal); R26.9 Unspecified abnormalities of gait and mobility; G62.9 Polyneuropathy, unspecified
CPT/HCPCS: 95886; 95911

== ENCOUNTER → 2024-01-01 | Outpatient (CLI) | payer MEDICARE, BC, SELFPAY | END | disposition home or self-care (01) | LOC: SL 20:19 | PROVIDERS: PCP Family Medicine; Visit Provider Psychiatry & Neurology Neurology | DX: G47.10 Hypersomnia, unspecified (principal) | CPT/HCPCS: 95810 ==

== ENCOUNTER → 2024-02-14 | Outpatient (CLI) | payer MEDICARE, BC, SELFPAY ==
[2024-02-18 14:08] LABS: Alpha-1-Globulins 0.2 g/dL (0.0-0.4); Alpha-2-Globulins 0.9 g/dL (0.4-1.0); Gamma Globulin 1.2 g/dL (0.4-1.8); Immunoglobulin A 306 mg/dL (61-437); Immunoglobulin G 1218 mg/dL (603-1613); Immunoglobulin M 171 mg/dL (15-143); PROEL- TOTAL PROTEIN 7.3 g/dL (6.0-8.5)
== END | disposition home or self-care (01) ==
LOC: MTLAB 09:24
PROVIDERS: PCP Family Medicine; Referring Provider Psychiatry & Neurology Neurology; Visit Provider Psychiatry & Neurology Neurology
DX: G62.9 Polyneuropathy, unspecified (principal)
CPT/HCPCS: 36415; 82784; 84165; 86334; 86335

== ENCOUNTER → 2024-07-30 | Outpatient (CLI) | payer MEDICARE, BC, SELFPAY ==
--- NOTE | 2024-07-30 08:07 | MRI_ITS ---
STUDY: MRI BRAIN WITH AND WITHOUT CONTRAST (ATTENTION INTERNAL AUDITORY CANALS - I.A.C.''s) REASON FOR EXAM: Male, 73 years old. dysequilibruim TECHNIQUE: Standardized multiplanar fat and water weighted pulse sequences were obtained. IV 19 cc clariscan was administered for the contrast portion of the examination. COMPARISON: None. FINDINGS: Normal bilateral temporal bones. Normal bilateral internal auditory canals. There is no demonstrated intracanalicular or cisternal vestibular schwannoma (acoustic neuroma). There is no enhancement of the bilateral VIIth or VIIIth cranial nerves. Normal bilateral cochlea, vestibules and semicircular canals. There is moderate cerebral atrophy with widening of the extra-axial spaces and ventricular dilatation. There are multiple white matter hyperintensities, distributed throughout the deep white matter tracts of the cerebral hemispheres, consistent with moderate chronic white matter ischemic changes. There is no evidence for recent intracranial ischemia or other cause of cytotoxic edema on diffusion weighted imaging (DWI). Normal bilateral basal ganglia. Normal thalami. Normal flow voids within the major intracranial circulation suggesting patency by spin echo criteria. Normal venous enhancement. There is no enhancing intra-axial or extra-axial abnormality. There is no extra-axial fluid accumulation. Normal sella turcica, pituitary gland, infundibular stalk, optic chiasm and hypothalamus. Normal tectal plate and pineal gland. Normal midbrain, estefani and medulla. Normal cerebellum. Normal basal cisterns. There are bilateral ocular lens implants with otherwise normal intraorbital contents. Normal visualized paranasal sinuses. Normal calvarium and skull base. Normal visualized soft tissue structures. Normal visualized upper cervical spine. MRI/Brain W/WO Contrast IMPRESSION: Involutional changes of the brain, as described above. No MR evidence of vestibular schwannoma (acoustic neuroma). Electronically Signed: Jose Vences MD at 10:11 EST ,
[2024-07-30 08:41] LABS: CREATININE FINGERSTICK < 1.0 mg/dL (0.70-1.30); EGFR FINGERSTICK > 60.0000 mL/min (>60)
== END | disposition home or self-care (01) ==
LOC: MRI 07:56
PROVIDERS: PCP Family Medicine; Referring Provider Psychiatry & Neurology Neurology; Visit Provider Psychiatry & Neurology Neurology
DX: H81.90 Unspecified disorder of vestibular function, unspecified ear (principal)
CPT/HCPCS: 70553; A9575

== ENCOUNTER 2024-08-22 13:00 | Outpatient (RCR) | payer MEDICARE, BC, SELFPAY ==
--- NOTE | 2024-07-08 13:41 | HP.PTEVAL_ITS ---
Patient's Visit Information Visit Information Visit Information: LAILA STEINER is a 73 year old M referred to Physical Therapy by Dr. Jose Guadalupe Moctezuma MD with a diagnosis of Peripheral vestibulopathy. Date of Evaluation: 07/08/24 Physical Therapist: Chilo Marin, DPT, OCS, CSCS Visit Plan Frequency: 2x /Week Duration: 4-6 Weeks Plan: 2x/week for 4-6 weeks for... 1. instruct and progress gym based LE, core and postural strength to schuyler rendon I. 2. Teach wieght shifting and ankle proprio and coordination exercises to complement I program with pics. Subjective Subjective: Jennifer got balance problems, getting weaker all the time. Diagnosed with PD but doctor decided that is no it and he has diabetic neuropathy in legs. Will have MRI on brain from Dr. Moctezuma. This has been going on for months starting earlier this year without reason. Described as a blanace problem and falls quite a bit and feels weak. Falls lately was a week ago reaching for a branch and fell. Got up off the ground slowly. Gets some spinning prior to change of DM meds and that is no longer a problem. Still loses balance, no spinning. Has neuroapthy in legs from DM neuroapthy. Legs feel heavy. Sleep is Ok on meds Retired. Basic At home dressing , bathroom, shower I. Lives in one story with basement and steps with railing are not a problem. Lives with . Spends day doing housework adn taking care fo yard. Does what he needs on riding mower. Activities: sold boat due to this. Regular ex: no. used to walk dog but only goes 1/4 mile at night due to dog limitations and uses stick for balance. Getting up in am is worse with balance and only when on feet, never sitting or lying. Objective Objective: Walks into PT slow but I with short steps , Trasnfers I chair and bed overusing UE. Steps are reciprocal with one rail to descend. Heel raises and toe raises I. HS and quads mod tight at -20 90/90 test. Hip and knee AROM WFL. reflexes 0/3 patella and achilles Sensation LE WNL to gross light touch. strength hip rotations 3+, abd 3+, ext 3, flexion 4- but lots of contralateral rotation and plevic instability. knees 4-/5, noticeable weakness descending steps. ankles 4/5 coordination to reciprocal toe and heel tap is poor and tends to be synchronous. Slow heel to petersen test. oculomotor is unremarkable: no nystagmus with gaze or head shake, normal pursuit and saccades and VOR without dizzyness. - head thrust, - ocular tilt, - skew eye deviaiton. No dizzyness with position changes and only c/o unsteadyness when on feet intermittently. Balance/Special Test Scores Functional Gait Assessment Score: 28 % Disability: 6.6700 CATSIB Score (Max score 120 seconds): 110 Dizziness Score: 28 Goals Goal 1:: 120 Romberg foam ec to aid in ankle coordination balance Goal Time Frame: 4-6 Weeks Goal 2:: I appropriate HEP for gym strength and wt shift and balance ex that patient can continue on his own. Goal Time Frame: 4-6 Weeks Goal 3:: Pt feel 505 steadier in getting aaround and 50% more active Goal Time Frame: 4-6 Weeks Goal 4:: DHI score 10 or less Goal Time Frame: 4-6 Weeks Rehabilitation Potential Physical Therapy Diagnosis: neuroapthy and related symptoms effecting balance and steadiness leading to sedentarism and its effects. Rehabilitation Potential: Fair Anticipated Interventions Patient/Client Instruction: Educate patient on: Condition and Plan of Care For the Purpose of:: To improve nutrient delivery to tissue, To improve muscle performance and motor function and To improve gait and locomotor functions Therapeutic Exercise to Include: Strength training and Balance training For the Purpose of:: To improve nutrient delivery to tissue, To improve muscle performance and motor function and To increase tolerance to activ ity/condition/position Text: Thank you for the opportunity to evaluate your patient. For Medicare and Medicare HMO plans, please review the plan of care and approve it. It will need to be FAXED BACK to us at [phone] for Medicare purposes. For Medicare only, by signing this I certify the plan of care. Please let me know if there are questions or concerns regarding this plan of care. Physician Signature: Date:
--- NOTE | 2024-08-22 13:51 | HP.PTREVAL ---
Re-Evaluation Intro: Dr. Jose Guadalupe Moctezuma MD, It has been my pleasure to treat LAILA STEINER over the last 13 visits for Peripheral vestibulopathy. Please see the progress note below for an update on the physical therapy plan of care! Subjective Subjective: Not improving. Balance still is up and down. Today feels normal, Sunday was a bad day maybe due to Sugar and will see doctor for that in a couple weeks. Trying to get the right amount. Doing gym ex himself 1x/week Objective Objective/Function: Great balance today and moving well with trasnfers and walking. foam stance with ec looks easy today. However, according to him, he may wake up tomorrow completley different. No spinning dizzyness lately just unsteadyness. Plan Plan Plan: Pt thinks doctor may want a comuterized biodex balance test adn will call regareding an order and call within 2 weeks if to return for that test. From a PT point of view, it would not change our recent treatment and results will be highly dependent on how he feels each day d/c to gyma dn home HEP unles spatient or doctor sends script for balance test by end of [id number] to check on this) Multiple comorbidities and up and down nature of his symptoms and balance performance have made treatment challenging and progress unremarkable. he will continue his gym and home ex however. Balance/Gait/Functional tests Balance/Special Test Scores Functional Gait Assessment Score: 27 % Disability: 10.0000 CATSIB Score (Max score 120 seconds): 120 Dizziness Score: 20 Goals Goals Goal 1:: 120 Romberg foam ec to aid in ankle coordination balance Goal Time Frame: 4-6 Weeks Goal Progress: Goal Met Goal 2:: I appropriate HEP for gym strength and wt shift and balance ex that patient can continue on his own. Goal Time Frame: 4-6 Weeks Goal Progress: Goal Met Goal 3:: Pt feel 50% steadier in getting aaround and 50% more active Goal Time Frame: 4-6 Weeks Goal Progress: Not Progressing Goal 4:: DHI score 10 or less Goal Time Frame: 4-6 Weeks Goal Progress: Progressing Anticipated Interventions Anticipated Interventions Patient/Client Instruction: Educate patient on: Condition and Plan of Care For the Purpose of:: To improve nutrient delivery to tissue, To improve muscle performance and motor function and To improve gait and locomotor functions Therapeutic Exercise to Include: Strength training and Balance training For the Purpose of:: To improve nutrient delivery to tissue, To improve muscle performance and motor function and To increase tolerance to activity/condition/position Re-Evaluation Ending Re-evaluation ending: Please do not hesitate to contact me at [phone] by phone or if you have questions or concerns regarding this new plan of care! Sincerely, Chilo Marin, DPT, OCS, CSCS
--- NOTE | 2024-11-03 14:06 | HP.PTDCSUM ---
Discharge Summary D/C summary: It has been my pleasure to treat LAILA STEINER referred by Dr. Jose Guadalupe Moctezuma MD, with the diagnosis of Peripheral vestibulopathy for a total of 13 visit(s). Discharge Date: Please see the following information for a summary of their discharge status. Subjective Subjective: Not improving. Balance still is up and down. Today feels normal, Sunday was a bad day maybe due to Sugar and will see doctor for that in a couple weeks. Trying to get the right amount. Doing gym ex himself 1x/week Pain R Knee: Pain Intensity (Out of 10): 0 L Knee: Pain Intensity (Out of 10): 0 Overall Improvement % Improvement: 10 Objective Objective/Function: Great balance today and moving well with trasnfers and walking. foam stance with ec looks easy today. However, according to him, he may wake up tomorrow completley different. No spinning dizzyness lately just unsteadyness. Goals Goal 1:: 120 Romberg foam ec to aid in ankle coordination balance Goal Progress: Goal Met Goal 2:: I appropriate HEP for gym strength and wt shift and balance ex that patient can continue on his own. Goal Progress: Goal Met Goal 3:: Pt feel 50% steadier in getting aaround and 50% more active Goal Progress: Not Progressing Goal 4:: DHI score 10 or less Goal Progress: Progressing Plan Plan: Pt thinks doctor may want a comuterized biodex balance test adn will call regareding an order and call within 2 weeks if to return for that test. From a PT point of view, it would not change our recent treatment and results will be highly dependent on how he feels each day d/c to gyma dn home HEP unles spatient or doctor sends script for balance test by end of [id number] to check on this) Multiple comorbidities and up and down nature of his symptoms and balance performance have made treatment challenging and progress unremarkable. he will continue his gym and home ex however. D/C Information d/c sentence: If there are questions or concerns regarding this patient's physical therapy, please feel free to call me at [phone]. Thank you for the referral of this patient. Sincerely, Chilo Marin, DPT, OCS, CSCS Balance/Gait/Functional tests Balance/Special Test Scores Functional Gait Assessment Score: 27 % Disability: 10.0000 CATSIB Score (Max score 120 seconds): 120 Dizziness Score: 20 Improvement % Improvement: 10
== END 2024-08-22 19:00 | disposition home or self-care (01) ==
LOC: PT 13:00
PROVIDERS: PCP Family Medicine; Referring Provider Psychiatry & Neurology Neurology; Visit Provider Psychiatry & Neurology Neurology
DX: H81.90 Unspecified disorder of vestibular function, unspecified ear (principal)
CPT/HCPCS: 97110; 97161; 97530

== ENCOUNTER → 2024-08-25 | Outpatient (CLI) | payer MEDICARE, BC, SELFPAY ==
--- NOTE | 2024-08-25 08:36 | EKG12_ITS ---
Test Reason : ROUTINE Blood Pressure : */* mmHG Vent. Rate : 59 BPM Atrial Rate : 59 BPM P-R Int : 202 ms QRS Dur : 110 ms QT Int : 438 ms P-R-T Axes : 36 -48 -22 degrees QTcB Int : 433 ms Sinus bradycardia with sinus arrhythmia Left anterior fascicular block Moderate voltage criteria for LVH, may be normal variant Nonspecific T wave abnormality Abnormal ECG Confirmed by DUYEN KWAN, NA ([id number]), editor farm journal FLORECITA JOAQUIN ([id number]) on 08/25/2024 2:12:55 PM Referred By: Jose Guadalupe Moctezuma Confirmed By: NA GELLER MD
== END | disposition home or self-care (01) ==
LOC: PSN 08:33
PROVIDERS: PCP Family Medicine; Referring Provider Psychiatry & Neurology Neurology; Visit Provider Psychiatry & Neurology Neurology
DX: I49.9 Cardiac arrhythmia, unspecified (principal)
CPT/HCPCS: 93005

== ENCOUNTER → 2024-09-19 | Outpatient (CLI) | payer MEDICARE, BC, SELFPAY ==
[2024-09-19 16:00] LABS: Vitamin B12 654 pg/mL (211-911); Vitamin D,25 Hydroxy 61.6 ng/mL
[2024-09-19 16:08] LABS: AST(SGOT) 102 U/L (15-37); Alanine Aminotransfer ALT/SGPT 127 U/L (16-61); Alkaline Phosphatase 75 U/L (45-117); Anion Gap 6 (5-15); BUN 23 mg/dL (7-18); BUN/Creat Ratio 20.7 RATIO (10-20); Calcium,Total 9.1 mg/dL (8.5-10.1); Chloride 106 mmol/L (98-107); Cholesterol 134 mg/dL (200); Creatinine, Serum 1.11 mg/dL (0.70-1.30); EST Glomerular Filtration Rate 69 mL/min (>60); Est Glom Filt Rate - Afr Amer 84 mL/min (>60); Glucose 110 mg/dL (74-106); High Density Lipoprotein 49 mg/dL; Iron 118 ug/dL (65-175); PSA,Total - Annual Screen 2.46 ng/mL (0.00-4.00); Potassium 4.1 mmol/L (3.5-5.1); Sodium Level 138 mmol/L (136-145); Triglycerides 64 mg/dL; Very Low Density Lipoprotein 13 mg/dL (5-40)
[2024-09-23 12:07] LABS: GGTP 162 IU/L (0-65); HEPATITIS B SURFACE AG Negative (Negative); Hep C Antibodies Non Reactive (Non Reactive); Hepatitis A IgM Antibody Negative (Negative); Hepatitis B Core AB IgM Negative (Negative)
== END | disposition home or self-care (01) ==
LOC: MFPLAB 12-04 16:05
PROVIDERS: PCP Family Medicine; Referring Provider Family Medicine; Visit Provider Family Medicine
DX: E11.40 Type 2 diabetes mellitus with diabetic neuropathy, unspecified (principal); E11.22 Type 2 diabetes mellitus with diabetic chronic kidney disease; N18.9 Chronic kidney disease, unspecified; R79.89 Other specified abnormal findings of blood chemistry; Z12.5 Encounter for screening for malignant neoplasm of prostate
CPT/HCPCS: 36415; 80053; 80061; 80074; 82306; 82607; 82977; 83540; 84153; 84403; 84443; G0103

== ENCOUNTER → 2024-09-22 | Outpatient (CLI) | payer MEDICARE, BC, SELFPAY ==
--- NOTE | 2024-09-22 18:02 | MRI_ITS ---
STUDY: MRI CERVICAL SPINE WITHOUT CONTRAST REASON FOR EXAM: Male, 73 years old. Neck pain; spinal stenosis; gait disorder TECHNIQUE: Standardized fat and water weighted pulse sequences were obtained in the sagittal and axial planes. COMPARISON: MR cervical spine without contrast 10/15/2023. CTA neck 07/18/2023. FINDINGS: Normal foramen magnum and brainstem-cervical cord junction. Normal craniovertebral junction. Normal anterior atlantoaxial articulation. Normal odontoid process. Normal cervical lordosis. No suspicious recent or remote fractures of the vertebral bodies and posterior osseous elements of the cervical spine. No abnormal focal signal is of the vertebral bodies and posterior osseous elements. No cervical degenerative inflammatory arthropathy. C2-3: Normal endplates. Normal disc height, signal and morphology. Normal central canal and intervertebral neural foramina. C3-4: Normal endplates. Normal disc height, signal and morphology. Normal central canal and intervertebral neural foramina. C4-5: Normal endplates. Normal disc height. Minimal degenerative anterolisthesis of C4 on C5 is unchanged. Normal central canal and intervertebral neuroforamina. C5-6: Normal endplates. Mild disc space height narrowing. Prominent posterior marginal spurs. Normal central canal and intervertebral neuroforamina. C6-7: Normal endplates. Minimal disc space height narrowing. Mild posterior marginal spurs. Normal central canal and intervertebral neuroforamina. C7-T1: Normal endplates. Normal disc height, signal and morphology. Normal central canal and intervertebral neural foramina. T1-T2 and T2-T3: (Sagittal only). Normal endplates. Normal disc height, signal and morphology. Normal central canal and intervertebral neuroforamina. Normal cervical cord. Normal upper thoracic spinal cord. Normal visualized soft tissue structures. MRI/Spine Cervical (Routine) IMPRESSION: 1. No MRI evidence of cervical extruded disc fragment, cervical disc protrusion, spinal stenosis or cervical nerve root displacement. 2. Minimal degenerative anterolisthesis of C4 on C5. 3. Prominent posterior marginal spurs at C5-C6 disc space level without associated spinal stenosis or nerve root displacement. 4. Mild posterior marginal spurs at C6-C7 disc space level without associated spinal stenosis or nerve root displacement. 5. Normal cervical spinal cord. 6. No significant interval change when compared to MRI cervical spine of 10/15/2023 and CTA neck 07/18/2023. Electronically Signed: John James MD at 15:51 EST ,
== END | disposition home or self-care (01) ==
LOC: MRI 08:09
PROVIDERS: PCP Family Medicine; Referring Provider Psychiatry & Neurology Neurology; Visit Provider Psychiatry & Neurology Neurology
DX: M54.2 Cervicalgia (principal); M48.00 Spinal stenosis, site unspecified; R26.9 Unspecified abnormalities of gait and mobility
CPT/HCPCS: 72141

== ENCOUNTER → 2024-09-23 | Outpatient (CLI) | payer MEDICARE, BC, SELFPAY | END | disposition home or self-care (01) | LOC: MFPLAB 08:24 | PROVIDERS: PCP Family Medicine; Referring Provider Family Medicine; Visit Provider Family Medicine | DX: Z00.00 Encounter for general adult medical examination without abnormal findings (principal) ==

== ENCOUNTER → 2024-10-06 | Outpatient (CLI) | payer MEDICARE, BC, SELFPAY ==
--- NOTE | 2024-10-06 08:31 | US_ITS ---
STUDY: ABDOMINAL ULTRASOUND - RIGHT UPPER QUADRANT REASON FOR VISIT: Male, 73 years old Other specified abnormal findings of blood chemistry TECHNIQUE: Ultrasound evaluation of the right upper quadrant was performed with real-time and static araujo-scale imaging. TECHNICAL QUALITY: Adequate. COMPARISON: Comparison is made with prior study dated April 12, 2022. FINDINGS: Liver: The liver measures 15.9 cm. There is increased echogenicity consistent with fatty infiltration. The bile ducts are within normal limits. There is hepatic color flow. The direction of portal flow is hepatopetal. There is no demonstrated mass lesion. Gallbladder: Normal distended gallbladder. The gallbladder wall measures 2.5 mm. There is a negative sonographic Johnson''s sign. There is no pericholecystic fluid. There are no gallstones. Sludge is seen within the gallbladder lumen. Common Bile Duct (C.B.D.): The common bile duct measures 4.4 mm. Pancreas: Normal size of the head, body and tail of the pancreas. There is normal echogenicity of the pancreas. There is no demonstrated pancreatic mass or cyst. Right Kidney: Normal size of the right kidney. The right kidney measures 11.7 cm x 4.7 cm x 6 cm. Normal renal cortex. The right cortex measures 1.8 cm. There is a 2.6 cm x 2.3 cm x 2.2 cm cyst in the superior pole of the kidney. I also suspect a 5 mm x 5 mm x 4 mm nonobstructive calculus in the midportion of the kidney. There is no right hydronephrosis. IMPRESSION: Fatty infiltration of the liver. Sludge is seen within the gallbladder lumen. Right renal cyst. Small nonobstructive right intrarenal calculus. Electronically Signed: Lawrence Shah MD at 10:02 [facility] , STUDY: ABDOMINAL ULTRASOUND - ELASTOGRAPHY REASON FOR VISIT: Male, 73 years old. Fatty infiltration of the liver. TECHNIQUE: Liver stiffness measurements were obtained on a ExactTarget RS 85 ultrasound machine using a CA 1-7 probe following the U guidelines. 3 measurements were obtained using a 2-D-SWE method. TheIQR/M was 12% suggesting a quality data set. TECHNICAL QUALITY: Adequate. COMPARISON: None. FINDINGS: Liver: Fatty infiltration of the liver. Median liver stiffness measured 10.1 kPa. Abdomen: There is no demonstrated mass lesion. US/Abdomen Limited IMPRESSION: Liver stiffness measures 10.1 kPa compatible with F2-F3 (Mild to moderate liver fibrosis) Metavir score. Electronically Signed: Lawrence Shah MD at 10:03 EST ,
== END | disposition home or self-care (01) ==
LOC: US 08:29
PROVIDERS: PCP Family Medicine; Referring Provider Family Medicine; Visit Provider Family Medicine
DX: R79.89 Other specified abnormal findings of blood chemistry (principal)
CPT/HCPCS: 76705; 76981

== ENCOUNTER → 2024-10-30 | Outpatient (CLI) | payer MEDICARE, BC, SELFPAY ==
[2024-10-30 12:31] LABS: Erythrocyte Sedimentation Rate 19 mm/hr (0-20)
[2024-10-30 12:55] LABS: CPK Total, Creatine Kinase 133 U/L (39-308); Magnesium 2.4 mg/dL (1.6-2.6)
[2024-10-30 14:14] LABS: Hemoglobin A1c 6.6 % (3.8-5.6)
[2024-10-31 14:08] LABS: Aldolase 6.7 U/L (3.3-10.3); HEPATITIS B SURFACE AG Negative (Negative); Hep C Antibodies Non Reactive (Non Reactive); Hepatitis A IgM Antibody Negative (Negative); Hepatitis B Core AB IgM Negative (Negative); Myoglobin, Serum 49 ng/mL (28-72)
== END | disposition home or self-care (01) ==
LOC: MTLAB 10:50
PROVIDERS: PCP Family Medicine; Referring Provider Psychiatry & Neurology Neurology; Visit Provider Psychiatry & Neurology Neurology
DX: R74.01 Elevation of levels of liver transaminase levels (principal); E11.9 Type 2 diabetes mellitus without complications; R53.1 Weakness
CPT/HCPCS: 36415; 80074; 82085; 82140; 82550; 83036; 83735; 83874; 85652

== ENCOUNTER → 2024-11-14 | Outpatient (CLI) | payer MEDICARE, BC, SELFPAY ==
--- NOTE | 2024-11-14 15:35 | MRI_ITS ---
PROCEDURE: SPINE THORACIC (ROUTINE) TECHNIQUE: Noncontrast thoracic spine MRI. COMPARISON: None. FINDINGS: Vertebrae: Thoracic vertebral body heights are preserved. Few T1 bright likely vertebral body hemangiomas most notably within T11, otherwise marrow signal is unremarkable. Alignment: Unremarkable Spinal Cord: As below, otherwise unremarkable. No cord signal abnormality identified. Disc spaces: Variable disc desiccation and multilevel disc height loss with multilevel largely midthoracic anterior disc/osteophyte complexes. Mild central disc protrusion at T6-T7 without significant spinal canal stenosis. Right paracentral and subarticular disc protrusion at T7-T8 measuring 8 x 2 mm with minimal contour abnormality along the adjacent right anterolateral spinal cord on axial images, although surrounding CSF is preserved. Diffuse disc bulging at T8-T9 resulting in minimal focal spinal canal stenosis. No significant thoracic foraminal stenosis. Multilevel facet arthropathy. Paraspinal Tissues: Small hiatal hernia. Partially imaged presumed right renal cyst, incompletely characterized and not well evaluated. Other: At least mild spinal canal stenosis suggested from C5-C7, incompletely imaged and not well evaluated. Lumbar spondylosis also present, similarly incompletely imaged and not well evaluated. MRI/Spine Thoracic (Routine) IMPRESSION: 1. Thoracic spondylosis as detailed, without significant spinal canal stenosis or abnormal cord signal identified. A small right paracentral and subarticular disc protrusion at T7-T8 is associated with a mild cord contour abnormality however there is no significant spinal canal stenosis. Notably, cervical and lumbar spondylosis ar e present with at least mild spinal canal stenosis suggested at the level of the mid to lower cervical spine, incompletely imaged and not well evaluated. Consider dedicated MRI cervical spine as indicated, unless performed elsewhere. 2. Additional description as above. Reading Location: [id number]
== END | disposition home or self-care (01) ==
LOC: MRI 15:24
PROVIDERS: PCP Family Medicine; Referring Provider Psychiatry & Neurology Neurology; Visit Provider Psychiatry & Neurology Neurology
DX: R26.9 Unspecified abnormalities of gait and mobility (principal)
CPT/HCPCS: 72146

== ENCOUNTER → 2025-01-20 | Outpatient (CLI) | payer MEDICARE, BC, SELFPAY ==
--- NOTE | 2025-01-20 11:40 | RAD_ITS ---
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 COMPARISON: None. FINDINGS: Procedure: Following informed consent, and using standard sterile technique, a lumbar puncture at the level of L2-L3 was performed via a left posterior oblique approach. 2% lidocaine local anesthesia was followed by placement a 20 gauge spinal needle into the thecal sac at the L2-L3 level. 40 mL clear fluid was then successfully removed. No complication was encountered, and the patient left the department in good condition, without significant complaint. RAD/Dx Lumbar Puncture w/IMG Guide IMPRESSION: Successful high-volume fluoroscopically guided lumbar puncture, with 40 mL monik r fluid successfully removed. Reading Location: [place] [id number]
[2025-01-20 12:00] LABS: Prothrombin Time (Protime)PT. 13.1 SECONDS (11.7-14.9)
[2025-01-20 12:01] LABS: Partial Thromboplast Time 25.7 Seconds (24.1-36.2)
[2025-01-20 12:03] VITALS: BP 186/87; PULSE 62; RESP 16; O2SAT 99; BMI 30.1
[2025-01-20] MEDS: Lidocaine 2% (5ml sdv) 5 ML VIAL.MPF INFILT (12:35)
[2025-01-20 13:02] VITALS: BP 169/94; PULSE 65; RESP 16; O2SAT 97
[2025-01-20 13:08] LABS: Cytology, Body Fluid / CSF SEE PATHOLOGY REPORT
--- NOTE | 2025-01-20 13:08 | CYSPIN_PTH ---
PATIENT: LAILA STEINER LOC: [facility] U#:[id number] AGE/SX: 74/M ROOM: RE01/20/[address]: Dr. Jose Guadalupe Moctezuma MD : 1950 BED: DIS: 01/20/2025 SPEC #: [id number] RECD: 01/20/25 14:07 STATUS: LUZ MARIA AILEEN #: [id number] EVER: 01/20/25 13:[address]: Jose Guadalupe Moctezuma DEPT: CYTOLOGY RECD BY: Vanessa Loera ENTERED: 01/20/25 14:07 SP TYPE: CYSPIN FL OTHR DR: Dr. Tate Alcazar MD Tissues: Cerebrospinal Fluid Procedures: Pap Stain (control) Special Stain Group II Cytospin Fluid HEADER OPERATION: Not noted PRE-OP DIAGNOSIS: Mild cognitive impairment of uncertain or unknown etiology, normal pressure hydrocephalus TISSUE SUBMITTED: A- Cerebral spinal fluid for cytology DIAGNOSIS CYTOLOGY A. Cerebrospinal fluid: * No malignant cells are identified CYTOLOGY STUDY Slides are reviewed. CYTOLOGY GROSS A. Received is 6 ml of clear fluid labeled with the patient's name and and designated per the requisition as Cerebral spinal fluid. Submitted for cytology and cell block preparation. Mr 01/20/2025 CPT: 14670
[2025-01-20 13:39] LABS: Appearance CSF (character) CLEAR (Clear); CSF Color COLORLESS (Colorless); Tested Tube # 3
[2025-01-20 13:40] LABS: RBC Count, Spinal Fluid 0 /mm-3 (None seen); White Count, CSF 0 /mm-3 (0 - 5)
[2025-01-20 14:19] LABS: Body Fluid QC Type(s) BF2Q
[2025-01-20 14:35] VITALS: BP 174/76; PULSE 63; RESP 16; O2SAT 99
[2025-01-20 15:11] LABS: Glucose Spinal Fluid 102 mg/dL (40-75); Protein Spinal Fluid 37.9 mg/dL (15.0-45.0)
[2025-01-22 14:09] LABS: VDRL Cerebrospinal Fluid Non Reactive (Non Rea:<1:1)
== END | disposition home or self-care (01) ==
PROVIDERS: Radiology Diagnostic Radiology; PCP Family Medicine; Referring Provider Psychiatry & Neurology Neurology; Visit Provider Psychiatry & Neurology Neurology
DX: G91.2 (Idiopathic) normal pressure hydrocephalus (principal); R26.9 Unspecified abnormalities of gait and mobility; G31.84 Mild cognitive impairment of uncertain or unknown etiology
CPT/HCPCS: 36415; 62328; 82945; 84157; 85610; 85730; 86592; 87070; 87205; 88108; 88313; 89050; 89051

== ENCOUNTER → 2025-04-17 | Outpatient (CLI) | payer MEDICARE, BC, SELFPAY ==
[2025-04-17 13:01] LABS: Carboxyhemoglobin Order ORDER TUBE
[2025-04-17 14:59] LABS: Carboxyhemoglobin Frac (CO) 2.0 % (0.0-1.5)
== END | disposition home or self-care (01) ==
LOC: LAB 11:51
PROVIDERS: PCP Family Medicine; Referring Provider Family Medicine; Visit Provider Family Medicine
DX: Z77.29 Contact with and (suspected) exposure to other hazardous substances (principal)
CPT/HCPCS: 36415; 82375

== ENCOUNTER → 2025-04-30 | Outpatient (CLI) | payer MEDICARE, BC, SELFPAY ==
[2025-04-30 12:09] LABS: Hematocrit 42.5 % (40-54); Hemoglobin 14.6 g/dL (13.0-16.5); Mean Corp Hgb Conc 34.4 g/dL (32-36); Mean Corpuscular Volume 92.6 fL (80-94); Mean Platelet Vol. 10.3 fl (6.2-12.0); Platelet Count 249 K/mm3 (150-450); RBC Distribution Width CV 12.6 % (11.6-14.6); RBC Distribution Width SD 42.8 fl (35.1-43.9); Red Blood Count 4.59 M/mm3 (4.6-6.2); White Blood Count 7.4 K/mm3 (4.4-11.0)
== END | disposition home or self-care (01) ==
PROVIDERS: PCP Family Medicine; Referring Provider Psychiatry & Neurology Neurology; Visit Provider Psychiatry & Neurology Neurology
DX: Z77.29 Contact with and (suspected) exposure to other hazardous substances (principal)
CPT/HCPCS: 36415; 85027

== ENCOUNTER → 2025-05-12 | Outpatient (CLI) | payer MEDICARE, BC, SELFPAY | END | disposition home or self-care (01) | LOC: MFPLAB 10:46 | PROVIDERS: PCP Family Medicine; Referring Provider Family Medicine; Visit Provider Family Medicine | DX: E11.9 Type 2 diabetes mellitus without complications (principal) | CPT/HCPCS: 36415; 82375 ==

== ENCOUNTER → 2025-05-14 | Outpatient (CLI) | payer MEDICARE, BC, SELFPAY ==
[2025-05-14 09:02] LABS: Carboxyhemoglobin Order 0.9
== END | disposition home or self-care (01) ==
LOC: LAB.FUTURE 08:28 → LAB 08:29
PROVIDERS: PCP Family Medicine; Referring Provider Family Medicine; Visit Provider Family Medicine
DX: E11.9 Type 2 diabetes mellitus without complications (principal)

== ENCOUNTER → 2025-07-27 | Outpatient (CLI) | payer MEDICARE, BC, SELFPAY ==
[2025-07-27 12:00] LABS: Hematocrit 42.5 % (40-54); Hemoglobin 14.9 g/dL (13.0-16.5); Mean Corp Hgb Conc 35.1 g/dL (32-36); Mean Corpuscular Volume 90.8 fL (80-94); Mean Platelet Vol. 9.9 fl (6.2-12.0); Platelet Count 276 K/mm3 (150-450); RBC Distribution Width CV 12.8 % (11.6-14.6); RBC Distribution Width SD 42.0 fl (35.1-43.9); Red Blood Count 4.68 M/mm3 (4.6-6.2); White Blood Count 8.4 K/mm3 (4.4-11.0)
[2025-07-27 12:45] LABS: AST(SGOT) 31 U/L (<=37); Alanine Aminotransfer ALT/SGPT 24 U/L (<=46); Albumin, Serum 4.1 g/dL (3.4-4.8); Alkaline Phosphatase 60 U/L (40-129); Anion Gap 18 (5-15); BUN 18 mg/dL (4-19); BUN/Creat Ratio 14.8 RATIO (10-20); Calcium,Total 9.3 mg/dL (7.6-11.0); Carbon Dioxide 18.0 mmol/L (21.0-32.0); Chloride 101 mmol/L (98-108); Globulin 3.7 g/dL (2.2-4.2); Glucose 169 mg/dL (70-99); Potassium 4.4 mmol/L (3.3-5.1); Vitamin B12 577 pg/mL (180-914); Vitamin D,25 Hydroxy 60.3 ng/mL (30-100)
== END | disposition home or self-care (01) ==
LOC: MFPLAB 10:28
PROVIDERS: PCP Family Medicine; Visit Provider Family Medicine
DX: G31.84 Mild cognitive impairment of uncertain or unknown etiology (principal)
CPT/HCPCS: 36415; 80053; 82306; 82607; 84443; 85027

== ENCOUNTER → 2025-08-04 | Outpatient (CLI) | payer MEDICARE, BC, SELFPAY ==
[2025-08-13 09:08] LABS: Folate, Hemolysate Test 348.0 ng/mL (Not Estab.); Folate, RBC (Hct) Test 44.0 % (37.5-51.0); Folates, RBC Test 791 ng/mL (>498); VITAMIN B6 9.4 ug/L (3.4-65.2)
== END | disposition home or self-care (01) ==
LOC: LAB 09:13
PROVIDERS: PCP Family Medicine; Referring Provider Psychiatry & Neurology Neurology; Visit Provider Psychiatry & Neurology Neurology
DX: F03.90 Unspecified dementia, unspecified severity, without behavioral disturbance, psychotic disturbance, mood disturbance, and anxiety (principal)
CPT/HCPCS: 36415; 81401; 82747; 84207; 85014

== ENCOUNTER → 2025-08-18 | Outpatient (CLI) | payer MEDICARE, BC, SELFPAY ==
--- NOTE | 2025-08-18 11:00 | RAD_ITS ---
PROCEDURE: ABD INC DECUB AND/OR ERECT 08/18/2025 REASON FOR EXAM: DIARRHEA TECHNIQUE: Procedure Code: RADABDMV Modality: DX Procedure: ABD INC DECUB AND/OR ERECT COMPARISON: None. FINDINGS: Nonobstructive visualized bowel gas pattern. No discernible free air. No unusual calcific densities or significant osseous abnormality appreciated. Mild degenerative changes of the spine. RAD/Abd Inc Decub and/or Erect IMPRESSION: No acute findings. Nonobstructive gas pattern. Reading Location: [id number]
== END | disposition home or self-care (01) ==
LOC: MTRAD 11:00
PROVIDERS: PCP Family Medicine; Referring Provider Family Medicine; Visit Provider Family Medicine
DX: R19.7 Diarrhea, unspecified (principal)
CPT/HCPCS: 74019

== ENCOUNTER → 2025-08-26 | Outpatient (CLI) | payer MEDICARE, BC, SELFPAY ==
--- NOTE | 2025-08-26 09:57 | RAD_ITS ---
PROCEDURE: KNEE 4 OR MORE VIEWS 08/26/2025 REASON FOR EXAM: L KNEE PAIN TECHNIQUE: Procedure Code: RADKN Modality: DX Procedure: KNEE 4 OR MORE VIEWS Laterality: Left COMPARISON: None FINDINGS: Images of the left knee demonstrate no evidence of fracture or dislocation. There is moderate arthritis of the patellofemoral joint. There is lateral displacement of the patella consistent with medial patellar retinacular insufficiency. There is no significant arthritis of the medial joint space compartment of the knee. There is no significant arthritis of the lateral joint space compartment of the knee. There is no knee joint effusion. There are vascular calcifications of the distal thigh. RAD/Knee 4 or More Views IMPRESSION: Arthritis of the patellofemoral joint. Other findings as noted. Reading Location: [place] [id number]
== END | disposition home or self-care (01) ==
LOC: MTRAD 09:56
PROVIDERS: PCP Family Medicine; Referring Provider Family Medicine; Visit Provider Family Medicine
DX: M25.562 Pain in left knee (principal)
CPT/HCPCS: 73564

== ENCOUNTER → 2025-09-08 | Outpatient (CLI) | payer MEDICARE, BC, SELFPAY ==
--- NOTE | 2025-09-08 15:29 | MRI_ITS ---
PROCEDURE: BRAIN WITHOUT CONTRAST 09/08/2025 REASON FOR EXAM: DEMENTIA; GAIT D/O; ? NORMAL PRESSURE HYDROCEPHALU TECHNIQUE: Procedure Code: MRIBR Modality: MR Procedure: BRAIN WITHOUT CONTRAST Multiplanar and multisequence images were obtained. COMPARISON: MRI brain February 23, 2025. FINDINGS: Brain: Foci of hyperintense signal on T2 and FLAIR which are nonspecific but most likely due to chronic small vessel ischemia. Parenchymal volume loss consistent with brain atrophy. No restricted diffusion. No hemorrhage. No mass-effect or midline shift. The orbits are unremarkable. The midline structures and craniocervical junctions are within normal limits. No ventriculomegaly. Ventricles: Unremarkable. Major Intracranial Vessels: Patent. Sinuses: Clear Mastoids: Clear MRI/Brain without Contrast IMPRESSION: No acute brain abnormalities. Brain atrophy and white matter changes which are most likely due to chronic sma ll-vessel ischemia are stable. Reading Location: [id number]
--- OUTSIDE RECORDS SUMMARY | 2025-09-08 17:21 | XMS RPT_ITS | CCD ---
Author Organization [facility] Care Team Providers Care [place] Protection Maintainer Name Role Phone Dr. Nelson Alcazar Primary Care Provider Dr. Nelson Alcazar Referring Provider Dr. Chris Rocha Attending Provider [phone] Tate Alcazar Primary Care Provider Dr. Tate Alcazar Referring Provider Dr. Chris Rocha Attending Provider Dr. Chris Rocha Referring Provider Dr. Chris Rocha Other Provider Dr. Galdino Storm Attending Provider Inge KWAN, Dr. Ybarra Primary Care Provider Inge KWAN, Dr. Ybarra Referring Provider Rhianna KWAN, Dr. Shi Attending Provider Rhianna KWAN, Dr. Shi Referring Provider Marie KWAN, Dr. Rollins Attending Provider Inge KWAN, Dr. Ybarra Attending Provider Inge KWAN, Dr. Ybarra Attending Provider Inge KWAN, Dr. Ybarra Primary Care Provider Inge KWAN, Dr. Ybarra Attending Provider [phone] Inge KWAN, Dr. Ybarra Referring Provider Rhianna KWAN, Dr. Shi Attending Provider Rhianna KWAN, Dr. Shi Referring Provider [phone] Tate Alcazar B Primary Care Provider BADDOUR, CHRIS Referring Unavailable RANNEY, CHRISTOPHER Primary Care Unavailable Inge KWAN, Dr. Ybarra Primary Care Provider Inge KWAN, Dr. Ybarra Referring Provider Rhianna KWAN, Dr. Shi Attending Provider Rhianna KWAN, Dr. Shi Referring Provider Inge KWAN, Dr. Ybarra Attending Provider [phone] Inge KWAN, Dr. Ybarra Primary Care Provider Inge KWAN, Dr. Ybarra Referring Provider Rhianna KWAN, Dr. Shi Attending Provider Ranney, Christopher Primary Care Unavailable Baddour, Chris Attending Unavailable Ranney, Christopher Primary Care Unavailable Ranney, Christopher Referring Unavailable Ranney, Christopher Attending Unavailable Baddour, Chris Referring Unavailable Ranney, Christopher Primary Care Unavailable Baddour, Chris Attending Unavailable Ranney, Christopher Primary Care Unavailable Ranney, Christopher Referring Unavailable Ranney, Christopher Attending Unavailable Ranney, Christopher Primary Care Unavailable Ranney, Christopher Attending Unavailable Ranney, Christopher Primary Care Unavailable Baddour, Chris Referring Unavailable Baddour, Chris Attending Unavailable Ranney, Christopher Primary Care Unavailable Ranney, Christopher Referring Unavailable Baddour, Chris Attending Unavailable Baddour, Chris Attending Unavailable Ranney, Christopher Primary Care Unavailable Ranney, Christopher Referring Unavailable Ranney, Christopher Primary Care Unavailable Baddour, Chris Attending Unavailable Baddour, Chris Referring Unavailable Baddour, Chris Referring Unavailable Ranney, Christopher Primary Care Unavailable Baddour, Chris Attending Unavailable Baddour, Chris Referring Unavailable Ranney, Christopher Primary Care Unavailable Baddour, Chris Attending Unavailable Baddour, Chris Referring Unavailable Ranney, Christopher Primary Care Unavailable Baddour, Chris Attending Unavailable Ranney, Christopher Primary Care Unavailable Ranney, Christopher Referring Unavailable Baddour, Chris Attending Unavailable Ranney, Christopher Referring Unavailable Ranney, Christopher Primary Care Unavailable Baddour, Hcris Attending Unavailable Ranney, Christopher Primary Care Unavailable Ranney, Christopher Referring Unavailable Baddour, Chris Attending Unavailable Ranney, Christopher Primary Care Unavailable Ranney, Christopher Referring Unavailable Baddour, Chris Attending Unavailable Baddour, Chris Referring Unavailable Ranney, Christopher Primary Care Unavailable Ayo Salazar Attending Unavailable Ranney, Christopher Referring Unavailable Ranney, Christopher Primary Care Unavailable Baddour, Chris Attending Unavailable Ranney, Christopher Attending Unavailable Ranney, Christopher Primary Care Unavailable Ranney, Christopher Referring Unavailable Ranney, Christopher Primary Care Unavailable Ranney, Christopher Referring Unavailable Ranney, Christopher Attending Unavailable Baddour, Chris Referring Unavailable Ranney, Christopher Primary Care Unavailable Baddour, Chris Attending Unavailable Ranney, Christopher Referring Unavailable Ranney, Christopher Primary Care Unavailable Ranney, Christopher Attending Unavailable Ranney, Christopher Attending Unavailable Ranney, Christopher Primary Care Unavailable Ranney, Christopher Referring Unavailable Ranney, Christopher Primary Care Unavailable Baddour, Chris Attending Unavailable Baddour, Chris Referring Unavailable Allergies Allergy Classification Reported Allergen(s) Allergy Type Date of Onset Reaction(s) Facility (20 sources) Penicillins; Translations: [Penicillins] Allergy to substance 11-04-2013 [facility] Medications Current Medications Medication Drug Class(es) Dates Sig (Normalized) Sig (Original) aspirin 81 mg delayed release oral tablet (20 sources) Platelet Aggregation Inhibitor, Nonsteroidal Anti-inflammatory Drug Start: 11-04-2013 take 1 tablet by mouth once daily Aspirin (Ecotrin) 81 MG tablet,delayed release (DR/EC) Active 81 mg PO DAILY November 04, 2013 1:00am atorvastatin 40 mg oral tablet (20 sources) HMG-CoA Reductase Inhibitor Start: 10-02-2023 take 2 tablets by mouth at bedtime Atorvastatin 40 mg tablet Active 80 mg PO AT BEDTIME October 02, 2023 10:21am Start: 10-02-2023 take 80 mg by mouth at bedtime Atorvastatin Active 80 MG PO AT BEDTIME October 02, 2023 10:21am Start: 11-04-2013 End: 10-02-2023 take 1 tablet by mouth at bedtime Atorvastatin 40 MG tablet Discontinued 40 mg PO AT BEDTIME November 04, 2013 1:00am October 02, 2023 10:29am cholecalciferol 0.05 mg oral tablet (20 sources) Vitamin D Start: 10-02-2023 take 1 tablet by mouth once daily Cholecalciferol (Vitamin D3) (Vitamin D3) 50 mcg (2,000 unit) tablet Active 4000 U PO DAILY October 02, 2023 10:21am Start: 11-04-2013 End: 10-02-2023 take 1 tablet by mouth once daily Cholecalciferol (Vitamin D3) (Vitamin D3) 2,000 UNIT tablet Discontinued 2000 U PO DAILY November 04, 2013 1:00am October 02, 2023 10:29am 3 ml insulin aspart protamine, human 70 unt/ml / insulin aspart, human 30 unt/ml pen injector (11 sources) Insulin Analog Start: 10-02-2023 Insulin Asp Pr t-Insulin Aspart (Novolog Mix 70-30flexpen U-100) 100 unit/mL (70-30) insulin pen Active 15 U SC DAILY October 02, 2023 1:00am Start: 10-02-2023 Insulin Asp Pr t-Insulin Aspart (Novolog Mix 70-30flexpen U- 100) 100 unit/mL (70-30) insulin pen Active 5 U SC TWICE A DAY October 02, 2023 1:00am 3 ml insulin aspart, human 100 unt/ml pen injector (6 sources) Insulin Analog Start: 01-20-2025 Insulin Aspart U-100 (Novolog Flexpen U-100 Insulin) 100 unit/mL (3 mL) insulin pen Active 20 U SC DAILY January 20, 2025 12:00am 3 ml insulin detemir 100 unt/ml pen injector (6 sources) Insulin Analog Start: 10-02-2023 Insulin Detemi r U-100 (Levemir Flexpen) 100 unit/mL (3 mL) insulin pen Active 50 U SC AT BEDTIME October 02, 2023 1:00am On Hold: Ordered Insulin Detemir U-100 (Levemir Flexpen) 100 unit/mL (3 mL) insulin pen (5 sources) Start: 10-02-2023 Insulin Detemi r U-100 (Levemir Flexpen) 100 unit/mL (3 mL) insulin pen Active 30 U SC AT BEDTIME October 02, 2023 1:00am Start: 10-02-2023 Insulin Detemi r U-100 (Levemir Flexpen) 100 unit/mL (3 mL) insulin pen Active 30 UNIT SC AT BEDTIME October 02, 2023 1:00am Start: 10-02-2023 Insulin Detemi r U-100 (Levemir Flexpen) 100 unit/mL (3 mL) insulin pen Active 30 UNIT SC AT BEDTIME October 02, 2023 12:00am Insulin Glargine U-300 Conc (Toujeo Solostar U-300 Insulin) 300 unit/mL (1.5 mL) insulin pen (6 sources) Start: 01-20-2025 Insulin Glargine U-300 Conc (Toujeo Solostar U-300 Insulin) 300 unit/mL (1.5 mL) insulin pen Active 50 U SC January 20, 2025 12:00am losartan potassium 100 mg oral tablet (6 sources) Angiotensin 2 Receptor Dotty Start: 01-20-2025 take 1 tablet by mouth once daily Losartan 100 mg tablet Active 100 mg PO DAILY January 20, 2025 12:00am polyethylene glycol 3350 27295 mg powder for oral solution (6 sources) Osmotic Laxative Start: 01-03-2025 take 17 g by mouth once daily Polyethylene Glycol 3350 17 gram/dose powder Active 17 g PO daily 510 4 January 03, 2025 12:00am tamsulosin hydrochloride 0.4 mg oral capsule (11 sources) alpha-Adrenergic Dotty Start: 10-02-2023 take 1 capsule by mouth once daily Tamsulosin 0.4 mg capsule Active 0.4 mg PO DAILY October 02, 2023 1:00am 24 hr venlafaxine 150 mg extended release oral capsule (20 sources) Serotonin and Norepinephrine Reuptake Inhibitor Start: 01-20-2025 take 1 capsule by mouth every twenty-four hours Venlafaxine 150 mg capsule,extended release 24hr Active 150 mg PO January 20, 2025 12:00am Start: 11-04-2013 take 1 capsule by [facility] once daily Venlafaxine Xr (Effexor Xr) 75 MG capsule Active 75 mg PO DAILY November 04, 2013 1:00am Completed/Discontinued Medications Medication Drug Class(es) Dates Sig (Normalized) Sig (Original) carbidopa 25 mg / levodopa 100 mg oral tablet (20 sources) Aromatic Amino Acid Decarboxylation Inhibitor, Aromatic Amino Acid Start: 10-02-2023 End: 06-03-2024 Carbidopa-Levodopa 25-100 mg tablet Discontinued 2 {tbl} PO THREE TIMES A DAY 540 1 February 14, 2024 9:12am June 03, 2024 9:06am Start: 10-02-2023 take 2 tablets by mo uth three times daily Carbidopa-Levodopa Active 2 TABLET PO THREE TIMES A DAY 540 October 02, 2023 1:00am Start: 10-02-2023 End: 10-02-2023 Carbidopa-Levodopa 25-100 mg tablet,disintegrating Discontinued 1 {tbl} PO THREE TIMES A DAY October 02, 2023 1:00am October 02, 2023 11:39am Start: 10-02-2023 End: 10-02-2023 take 1 tablet by mouth three times daily Carbidopa-Levodopa Discontinued 1 TABLET PO THREE TIMES A DAY October 02, 2023 1:00am October 02, 2023 11:39am docusate sodium 100 mg oral capsule (8 sources) Start: 06-03-2024 End: 07-01-2024 take 1 capsule by mouth twice daily Docusate Sodium (Colace) 100 mg capsule Discontinued 100 mg PO TWICE A DAY 60 5 June 03, 2024 12:00am July 01, 2024 12:14pm gabapentin 100 mg oral capsule (20 sources) Anti-epileptic Agent Start: 11-04-2013 End: 10-02-2023 take 1 capsule by mouth three times daily at mealtime as needed for pain Gabapentin 100 MG capsule Discontinued 100 mg PO 3 TIMES DAILY WITH MEALS as needed for Pain 30 0 November 04, 2013 8:07am October 02, 2023 10:26am glipiZIDE 10 mg oral tablet (20 sources) Sulfonylurea Start: 11-04-2013 End: 10-02-2023 take 1 tablet by mouth once daily Glipizide 10 MG tablet Discontinued 10 mg PO DAILY@0730 November 04, 2013 1:00am October 02, 2023 10:22am hydroCHLOROthiazide 12.5 mg oral capsule (20 sources) Thiazide Diuretic Start: 11-04-2013 End: 10-02-2023 take 1 capsule by mouth once daily Hydrochlorothiazide 12.5 MG capsule Discontinued 12.5 mg PO DAILY November 04, 2013 1:00am October 02, 2023 10:22am linaclotide 0.072 mg oral capsule (8 sources) Guanylate Cyclase-C Agonist Start: 07-01-2024 End: 08-19-2024 take 1 capsule by mouth once daily in the morning Linaclotide (Linzess) 72 mcg capsule Discontinued 72 ug PO EVERY MORNING 30 July 01, 2024 12:00am August 19, 2024 1:24pm lisinopril 40 mg oral tablet (20 sources) Angiotensin Converting Enzyme Inhibitor Start: 11-04-2013 End: 10-02-2023 take 1 tablet by mouth once daily Lisinopril 40 MG tablet Discontinued 40 mg PO DAILY November 04, 2013 1:00am October 02, 2023 10:22am meclizine hydrochloride 25 mg oral tablet (8 sources) Antiemetic Start: 07-01-2024 End: 08-19-2024 take 1 tablet by mouth twice daily as needed for dizziness Meclizine 25 mg tablet Discontinued 25 mg PO TWICE A DAY as needed for dizziness 60 July 01, 2024 12:00am August 19, 2024 1:24pm metoclopramide 10 mg oral tablet (20 sources) Dopamine-2 Receptor Antagonist Start: 11-04-2013 End: 10-02-2023 take 1 tablet by mouth three times daily as needed for nausea Metoclopramide Hcl 10 MG tablet Discontinued 10 mg PO THREE TIMES A DAY as needed for headache & nausea 12 0 November 04, 2013 7:51am October 02, 2023 10:24am primidone 50 mg oral tablet (16 sources) Anti-epileptic Agent Start: 07-01-2024 End: 08-19-2024 take 1 tablet by mouth twice daily Primidone 50 mg tablet Discontinued 50 mg PO TWICE A DAY 60 July 01, 2024 12:14pm August 19, 2024 1:24pm Start: 06-03-2024 End: 07-01-2024 take 0.5 tablet by mouth once daily, then take 0.5 tablet by mouth twice daily, then take 1 tablet by mouth twice daily Primidone 50 mg tablet Discontinued 0 .Route .COMPLEX 60 5 June 03, 2024 12:00am July 01, 2024 12:17pm One-half tablet PO daily for one week then one-half tablet BID for one week then one tablet BID thereafter sAXagliptin 5 mg oral tablet (20 sources) Dipeptidyl Peptidase 4 Inhibitor Start: 11-04-2013 End: 10-02-2023 take 1 tablet by mouth once daily Saxagliptin (Onglyza) 5 MG tablet Discontinued 5 mg PO DAILY November 04, 2013 1:00am October 02, 2023 10:24am Sennosides (Senna Lax) 8.6 mg tablet (8 sources) Start: 08-19-2024 End: 01-03-2025 take 1 tablet by mouth twice daily as needed for constipation Sennosides (Senna Lax) 8.6 mg tablet Discontinued 8.6 mg PO TWICE A DAY as needed for constipation 60 August 19, 2024 1:00am January 03, 2025 8:31pm Start: 08-19-2024 End: 01-03-2025 take 1 tablet by mouth twice daily as needed for constipation Sennosides (Senna Lax) 8.6 mg tablet Discontinued 8.6 mg PO TWICE A DAY as needed for constipation 60 August 19, 2024 1:00am January 03, 2025 8:31pm Start: 08-19-2024 take 1 tablet by edil th twice daily as needed for constipation Sennosides (Senna Lax) 8.6 mg tablet Active 8.6 mg PO TWICE A DAY as needed for constipation 60 August 19, 2024 1:00am tiZANidine 4 mg oral tablet (20 sources) Central alpha-2 Adrenergic Agonist Start: 02-14-2024 End: 03-16-2025 take 1-2 tablets by mouth at bedtime as needed for pain Tizanidine 4 mg tablet Discontinued 0 PO AT BEDTIME as needed for neck pain/insomnia 180 0 January 03, 2025 8:31pm March 16, 2025 12:25pm One to two tablets orally at bedtime PRN traMADol hydrochloride 50 mg oral tablet (20 sources) Opioid Agonist Start: 11-04-2013 End: 10-02-2023 take 1 tablet by mouth every six hours as needed for pain Tramadol 50 MG tablet Discontinued 50 mg PO EVERY 6 HOURS NEEDED as needed for Pain 12 February 18th, 2014 1:00am October 02, 2023 10:24am Problems Active Problems Problem Classification Problem Date Documented Da te Episodic/Chronic Cardiac dysrhythmias (11 sources) Cardiac arrhythmia; Translations: [Cardiac arrhythmia, unspecified] Onset: 09-26-2024 08-20-2024 Chronic Diabetes mellitus with complications (1 source) Type 2 diabetes mellitus with diabetic neuropathy, unspecified; Translations: [Type 2 diabetes mellitus with diabetic neuropathy, unspecified] Onset: 12-04-2024 Chronic Diabetes mellitus without complication (1 source) Type 2 diabetes mellitus without complications; Translations: [Type 2 diabetes mellitus without complications] Onset: 05-20-2025 Chronic Headache; including migraine (20 sources) Headache; Translations: [Headache] 11-05-2013 Episodic Other and ill-defined cerebrovascular disease (20 sources) Cerebrovascular disease; Translations: [Cerebrovascular disease, unspecified] 08-20-2024 Chronic Other and ill-defined cerebrovascular disease (4 sources) Cerebrovascular disease, unspecified; Translations: [Cerebrovascular disease, unspecified] Onset: 11-05-2024 Chronic Other gastrointestinal disorders (12 sources) Constipation; Translations: [Constipation, unspecified] 06-03-2024 Episodic Other hereditary and degenerative nervous system conditions (20 sources) Impaired cognition; Translations: [Mild cognitive impairment, so stated] 10-02-2023 Chronic Other hereditary and degenerative nervous system conditions (6 sources) Mild cognitive impairment, so stated; Translations: [Mild cognitive impairment, so stated] Onset: 01-21-2025 10-02-2023 Chronic Other liver diseases (8 sources) Elevated liver enzymes level; Translations: [High liver transaminase level] 10-30-2024 Episodic Other nervous system disorders (20 sources) Polyneuropathy; Translations: [Polyneuropathy, unspecified] 10-02-2023 Chronic Other nervous system disorders (3 sources) Polyneuropathy, unspecified; Translations: [Unspecified hereditary and idiopathic peripheral neuropathy] 10-02-2023 Chronic Other nervous system disorders (20 sources) Normal pressure hydrocephalus; 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] 01-03-2025 Chronic Other nervous system disorders (3 sources) (Idiopathic) normal pressure hydrocephalus; 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 (HCC)] Onset: 01-24-2025 Chronic Other nervous system disorders (20 sources) Abnormal gait; Translations: [Unspecified abnormalities of gait and mobility] 10-02-2023 Episodic Other nervous system disorders (11 sources) Numbness; Translations: [Anesthesia of skin] 10-02-2023 Episodic Other nervous system disorders (3 sources) Impaired cognition 02-23-2025 Episodic Residual codes; unclassified (9 sources) Hypersomnia; Translations: [Hypersomnia, unspecified] 12-27-2023 Chronic Residual codes; unclassified (2 sources) Periodic limb movement disorder; Translations: [Periodic limb movement disorder] 03-30-2024 Chronic Residual codes; unclassified (6 sources) Periodic leg movements of sleep ; Translations: [Periodic limb movement disorder] 03-30-2024 Chronic Residual codes; unclassified (15 sources) Insomnia; Translations: [Insomnia, unspecified] 02-14-2024 Episodic Residual codes; unclassified (1 source) Contact with and (suspected) exposure to other hazardous substances; Translations: [Contact with and (suspected) exposure to other hazardous substances] Onset: 05-04-2025 Episodic Unclassified (6 sources) Parkinson's disease; Translations: [Parkinson's disease] 10-02-2023 Chronic Unclassified (2 sources) R26.9 - Unspecified abnormalities of gait and mobility,G62.9 - Polyneuropathy, unspecified,M48.02 - Spinal stenosis, cervical region,I67.9 - Cerebrovascular disease, unspecified Unclassified (1 source) Elevation of levels of liver transaminase levels; Translations: [Elevation of levels of liver transaminase levels] Onset: 11-14-2024 Past or Other Problems Problem Classification Problem Date Documented Date Episodic/Chronic Conditions associated with dizziness or vertigo (14 sources) Vertiginous syndrome; Translations: [Unspecified disorder of vestibular function, unspecified ear] Onset: 11-07-2024 07-01-2024 Episodic Malaise and fatigue (9 sources) Asthenia; Translations: [Weakness] Onset: 10-30-2024 10-30-2024 Episodic Other nervous system disorders (7 sources) Unspecified abnormalities of gait and mobility; Translations: [Abnormality of gait] Onset: 11-05-2024 10-02-2023 Episodic Other screening for suspected conditions (not mental disorders or infectious disease) (1 source) Other specified abnormal findings of blood chemistry; Translations: [Other specified abnormal findings of blood chemistry] Onset: 10-28-2024 Episodic Spondylosis; intervertebral disc disorders; other back problems (20 sources) Neck pain; Translations: [Cervicalgia] Onset: 08-19-2024 10-02-2023 Episodic Results Test Name Value Interpretation Reference Range Facility CBC-Complete Blood Cnt No Di ffon 07-27-2025 Erythrocyte distribution width (RBC) [Ratio] 12.8 % Normal 11.6-14.6 [facility] Comment on above: Order Comment: Order Date: 07/27/25Order Info: [id number] - CBC Performed By: #### L 511.0135, [id number] #### [facility] [address] [place], [address] Hematocrit (Bld) [Volume fraction] 42.5 % Normal 40-54 [facility] Comment on above: Order Comment: Order Date: 07/27/25Order Info: [id number] - CBC Performed By: #### L 511.0135, [id number] #### [facility] [address] [place], [address] Hemoglobin (Bld) [Mass/Vol] 14.9 g/dL Normal 13.0-16.5 [facility] Comment on above: Order Comment: Order Date: 07/27/25Order Info: [id number] - CBC Performed By: #### L 511.0135, [id number] #### [facility] [address] [place], [address] MCH (RBC) [Entitic mass] 31.8 pg Normal 27.0-32.0 [facility] Comment on above: Order Comment: Order Date: 07/27/25Order Info: [id number] - CBC Performed By: #### L 511.0135, [id number] #### [facility] [address] [place], [address] MCHC (RBC) [Mass/Vol] 35.1 g/dL Normal 32-36 [facility] Comment on above: Order Comment: Order Date: 07/27/25Order Info: [id number] - CBC Performed By: #### L 511.0135, [id number] #### [facility] [address] [place], [address] MCV (RBC) [Entitic vol] 90.8 fL Normal 80-94 [facility] Comment on above: Order Comment: Order Date: 07/27/25Order Info: [id number] - CBC Performed By: #### L 511.0135, [id number] #### [facility] [address] [place], [address] Platelet mean volume (Bld) [Entitic vol] 9.9 fL Normal 6.2-12.0 [facility] Comment on above: Order Comment: Order Date: 07/27/25Order Info: [id number] - CBC Performed By: #### L 511.0135, [id number] #### [facility] [address] [place], [address] Platelets (Bld) [#/Vol] 276 10*3/uL Normal 150-450 [facility] Comment on above: Order Comment: Order Date: 07/27/25Order Info: [id number] - CBC Performed By: #### L 511.0135, [id number] #### [facility] [address] [place], [address] RBC (Bld) [#/Vol] 4.68 10*6/uL Normal 4.6-6.2 [facility] Comment on above: Order Comment: Order Date: 07/27/25Order Info: [id number] - CBC Performed By: #### L 511.0135, [id number] #### [facility] [address] [place], [address] RDW SD 42.0 fl Normal 35.1-43.9 [facility] Comment on above: Order Comment: Order Date: 07/27/25Order Info: [id number] - CBC Performed By: #### L [id number], [id number] #### [facility] [address] [place], [address] WBC (Bld) [#/Vol] 8.4 10*3/uL Normal 4.4-11.0 [facility] Comment on above: Order Comment: Order Date: 07/27/25Order Info: [id number] - CBC Performed By: #### L 511.0135, [id number] #### [facility] [address] [place], [address] Comprehensive Metabolic Prof ilon 07-27-2025 Albumin [Mass/Vol] 4.1 g/dL Normal 3.4-4.8 [facility] Comment on above: Order Comment: Order Date: 07/27/25Order Info: [id number] - CMPOrder Info: [id number] - TSH Performed By: #### L [id number], [id number] #### [facility] [address] [place], [address] Albumin/Globulin [Mass ratio] 1.1 {ratio} Normal 0.9-2.4 [facility] Comment on above: Order Comment: Order Date: 07/27/25Order Info: [id number] - CMPOrder Info: [id number] - TSH Performed By: #### L [id number], [id number] #### [facility] [address] [place], [address] ALK PHOS 60 U/L Normal 40-129 [facility] Comment on above: Order Comment: Order Date: 07/27/25Order Info: [id number] - CMPOrder Info: [id number] - TSH Performed By: #### L [id number], [id number] #### [facility] [address] [place], [address] ALT [Catalytic activity/Vol] 24 U/L Normal <=46 [facility] Comment on above: Order Comment: Order Date: 07/27/25Order Info: [id number] - CMPOrder Info: [id number] - TSH Performed By: #### L [id number], [id number] #### [facility] [address] [place], [address] AST [Catalytic activity/Vol] 31 U/L Normal <=37 [facility] Comment on above: Order Comment: Order Date: 07/27/25Order Info: [id number] - CMPOrder Info: [id number] - TSH Performed By: #### L [id number], [id number] #### [facility] [address] [place], [address] Bilirubin [Mass/Vol] 0.69 mg/dL Normal 0.00-1.30 [facility] Comment on above: Order Comment: Order Date: 07/27/25Order Info: 07-1 - CMPOrder Info: 3015-3 - TSH Performed By: #### L 511.0135, L9999.0020 #### [facility] [address] [place], [address] BUN/CRE 14.8 RATIO Normal 10-20 [facility] Comment on above: Order Comment: Order Date: 07/27/25Order Info: 0786-1 - CMPOrder Info: 301-3 - TSH Performed By: #### L 511.0135, [id number] #### [facility] [address] [place], [address] Calcium [Mass/Vol] 9.3 mg/dL Normal 7.6-11.0 [facility] Comment on above: Order Comment: Order Date: 07/27/25Order Info: 0786-1 - CMPOrder Info: 3016-3 - TSH Performed By: #### L 511.0135, L9999.0020 #### [facility] [address] [place], [address] Chloride [Moles/Vol] 101 mmol/L Normal 98-108 [facility] Comment on above: Order Comment: Order Date: 07/27/25Order Info: 0786-1 - CMPOrder Info: 3016-3 - TSH Performed By: #### L 511.0135, L9999.0020 #### [facility] [address] [place], [address] CO2 [Moles/Vol] 18.0 mmol/L Low 21.0-32.0 [facility] Comment on above: Order Comment: Order Date: 07/27/25Order Info: 07- - CMPOrder Info: 3015-3 - TSH Performed By: #### L 511.0135, L9999.0020 #### [facility] [address] [place], [address] Creatinine [Mass/Vol] 1.20 mg/dL Normal 0.70-1.20 [facility] Comment on above: Order Comment: Order Date: 07/27/25Order Info: 0786-1 - CMPOrder Info: 3016-3 - TSH Performed By: #### L 511.0135, L9999.0020 #### [facility] [address] [place], [address] GAP 18 High 5-15 [facility] Comment on above: Order Comment: Order Date: 07/27/25Order Info: 0786-1 - CMPOrder Info: 3016-3 - TSH Performed By: #### L 511.0135, L9999.0020 #### [facility] [address] [place], [address] GFR/1.73 sq M.predicted among non-blacks MDRD (S/P/Bld) [Vol rate/Area] 64 mL/min/{1.73_m2} Normal >60 [facility] Comment on above: Order Comment: Order Date: 07/27/25Order Info: 0786-1 - CMPOrder Info: 3015-3 - TSH Result Comment: mL/m in/1.73m2 CKD-EPI Creatinine Equation (2020) Performed By: #### L 511.0135, L9999.0020 #### [facility] [address] [place], [address] Globulin (S) [Mass/Vol] 3.7 g/dL Normal 2.2-4.2 [facility] Comment on above: Order Comment: Order Date: 07/27/25Order Info: 0786-1 - CMPOrder Info: 3015-11 - TSH Performed By: #### L 511.0135, [id number] #### [facility] [address] [place], [address] Glucose [Mass/Vol] 169 mg/dL High 70-99 [facility] Comment on above: Order Comment: Order Date: 07/27/25Order Info: 0786- - CMPOrder Info: 3015-11 - TSH Performed By: #### L 511.0135, [id number] #### [facility] [address] [place], [address] Potassium [Moles/Vol] 4.4 mmol/L Normal 3.3-5.1 [facility] Comment on above: Order Comment: Order Date: 07/27/25Order Info: 0786- - CMPOrder Info: 3015-11 - TSH Performed By: #### L 511.0135, [id number] #### [facility] [address] [place], [address] Sodium [Moles/Vol] 137 mmol/L Normal 133-145 [facility] Comment on above: Order Comment: Order Date: 07/27/25Order Info: 0786-1 - CMPOrder Info: 3015-3 - TSH Performed By: #### L 511.0135, [id number] #### [facility] [address] [place], [address] T PROT 7.9 g/dL Normal 5.9-8.4 [facility] Comment on above: Order Comment: Order Date: 07/27/25Order Info: 0786-1 - CMPOrder Info: 3016-3 - TSH Performed By: #### L 511.0135, [id number] #### [facility] [address] [place], [address] Urea nitrogen [Mass/Vol] 18 mg/dL Normal 4-19 [facility] Comment on above: Order Comment: Order Date: 07/27/25Order Info: 0786-1 - CMPOrder Info: 3016-3 - TSH Performed By: #### L 511.0135, L9999.0020 #### [facility] [address] [place], [address] Thyroid Stim Hormone (TSH)on 07-27-2025 TSH 2.010 uIU/mL Normal 0.300-4.200 [facility] Comment on above: Order Comment: Order Date: 07/27/25Order Info: 0786-1 - CMPOrder Info: 3016-3 - TSH Performed By: #### L 511.0135, [id number] #### [facility] [address] [place], [address] Vitamin B12on 07-27-2025 Cobalamin (Vitamin B12) [Mass/Vol] 577 pg/mL Normal 180-914 [facility] Comment on above: Order Comment: Order Date: 07/27/25Order Info: 0786-1 - CMPOrder Info: 3016-3 - TSH Performed By: #### L 511.0135, [id number] #### [facility] [address] [place], [address] Vitamin D,25 Hydroxyon 07-27 Vitamin D 25-OH 60.3 ng/mL Normal 30-100 [facility] Comment on above: Order Comment: Order Date: 07/27/25Order Info: 0786-1 - CMPOrder Info: 3016-3 - TSH Result Comment: Jesika min D Status Deficiency: <20 ng/mL (50nmol/L) Insufficiency: 20-30 ng/mL (50-75 nmol/L) Sufficiency: 30-100 ng/mL (75-250 nmol/L) Toxicity: >100 ng/mL (>250 nmol/L) Performed By: #### L 511.0135, L9999.0020 #### [facility] [address] [place], [address] L511.0135on 06-11-2025 COHb 0.9 Normal 0.0-1.5 [facility] Comment on above: Performed By: #### L 511.0135, L9999.0020 #### [facility] [address] [place], [address] L9999.0020on 05-14-2025 COHb Order 0.9 Normal [facility] Comment on above: Performed By: #### L 511.0135, L9999.0020 #### [facility] [address] [place], [address] Laboratory - Specimen inform ationOrdered By: Tate Alcazar on 05-14-2025 Number of specimens obtained (Unsp spec) [#] 0.9 [facility] CBC-Complete Blood Cnt No Di ffon 04-30-2025 Erythrocyte distribution width (RBC) [Ratio] 12.6 % Normal 11.6-14.6 [facility] Comment on above: Performed By: #### L 511.0135, [id number] #### [facility] [address] [place], [address] Hematocrit (Bld) [Volume fraction] 42.5 % Normal 40-54 [facility] Comment on above: Performed By: #### L 511.0135, [id number] #### [facility] [address] [place], [address] Hemoglobin (Bld) [Mass/Vol] 14.6 g/dL Normal 13.0-16.5 [facility] Comment on above: Performed By: #### L 511.0135, [id number] #### [facility] [address] [place], [address] MCH (RBC) [Entitic mass] 31.8 pg Normal 27.0-32.0 [facility] Comment on above: Performed By: #### L 511.0135, L9999.0020 #### [facility] [address] [place], [address] MCHC (RBC) [Mass/Vol] 34.4 g/dL Normal 32-36 [facility] Comment on above: Performed By: #### L 511.0135, L9999.0020 #### [facility] [address] [place], [address] MCV (RBC) [Entitic vol] 92.6 fL Normal 80-94 [facility] Comment on above: Performed By: #### L 511.0135, [id number] #### [facility] [address] [place], [address] Platelet mean volume (Bld) [Entitic vol] 10.3 fL Normal 6.2-12.0 [facility] Comment on above: Performed By: #### L 511.0135, L9999.0020 #### [facility] [address] [place], [address] Platelets (Bld) [#/Vol] 249 10*3/uL Normal 150-450 [facility] Comment on above: Performed By: #### L 511.0135, [id number] #### [facility] [address] [place], [address] RBC (Bld) [#/Vol] 4.59 10*6/uL Low 4.6-6.2 [facility] Comment on above: Performed By: #### L 511.0135, [id number] #### [facility] [address] [place], [address] RDW SD 42.8 fl Normal 35.1-43.9 [facility] Comment on above: Performed By: #### L 511.0135, [id number] #### [facility] [address] [place], [address] WBC (Bld) [#/Vol] 7.4 10*3/uL Normal 4.4-11.0 [facility] Comment on above: Performed By: #### L 511.0135, L9999.0020 #### [facility] [address] [place], [address] Erythrocyte distribution wid th ratioOrdered By: Chris Rocha on 04-30-2025 Erythrocyte distribution width (RBC) [Ratio] 12.6 % 11.6-14.6 [facility] Erythrocyte distribution wid th standard deviationOrdered By: Chris Rocha on 04-30-2025 Erythrocyte distribution width (RBC) [Ratio] 42.8 fl 35.1-43.9 [facility] Hematocrit Auto (Bld) [Volum e fraction]Ordered By: Chris Rocha on 04-30-2025 Hematocrit (Bld) [Volume fraction] 42.5 % 40-54 [facility] Hemoglobin measurementOrdere d By: Chris Rocha on 04-30-2025 Hemoglobin (Bld) [Mass/Vol] 14.6 g/dL 13.0-16.5 [facility] MCV (mean corpuscular volume ) determinationOrdered By: Chris Rocha on 04-30-2025 MCV (RBC) [Entitic vol] 92.6 fL 80-94 [facility] Mean corpuscular hemoglobin (MCH) determinationOrdered By: Chris Rocha on 04-30-2025 MCH (RBC) [Entitic mass] 31.8 pg 27.0-32.0 [facility] Mean corpuscular hemoglobin concentration (MCHC) determinationOrdered By: Chris Rocha on 04-30-2025 MCHC (RBC) [Mass/Vol] 34.4 g/dL 32-36 [facility] Mean platelet volume determi nationOrdered By: Chris Rocha on 04-30-2025 Platelet mean volume (Bld) [Entitic vol] 10.3 fL 6.2-12.0 [facility] Neurology Visit Reporton Neurology Visit Report [facility] [address], [address] [place] [address] OFFICE VISIT Date of Service: 04/30/25 MR#: [id number] Acct: [id number] Name: LAILA COKER Rep #: [id number] : 1950 Provider: Dr. Chris hoffman MD Age/Sex: 74/M Location: [facility] [place]. Status: Signed HPI HPI Chief Complaint: Details: Interim History: Laila returns for follow-up visit. He has a history of diabetes mellitus, hyperlipidemia, and hypertension (he is no longer on medication for this condition). Around 2020, he began to exhibit slowing and shuffling of his gait. He had multiple falls. Since 2022, his voice became hypophonic. He denied having swallowing difficulty. He has had a tremor that is worsened with action. His tremor had worsened over time. The tremor has affected both hands and interferes with activities such as holding a cup and writing. He has had numbness and tingling in the feet since 2022. He has experienced occasional momentary sharp pain in the feet (this does not occur daily). His legs feel weak and heavy. Physical therapy in 2022 was of some benefit for his lower extremity weakness. Subsequent physical therapy was not of benefit. He previously had neck pain; this subsided. He had chronic fluctuating low back pain. Chiropractic therapy for his back pain and neck pain was of benefit. He is not experiencing lower extremity radicular pain but does have arthritic pain in the knees. He had occasional lightheadedness when he rises to a standing position. His gait now is unsteady but is no longer shuffling. A trial carbidopa/levodopa 25/100 2 tablets TID appeared initially to result in some improvement of his gait however he subsequently ran out of of carbidopa/levodopa and did not notice any change in his symptoms. On reassessment at this office in May 2024, I was no longer convinced that he had Parkinson's disease. His tremor may be an essential tremor. He has had reduction of his tremor following initiation of primidone and he no longer is experiencing any significant tremor. A trial of discontinuation of primidone was made to assess whether primidone may have caused a side effect of gait imbalance. No improvement of his gait imbalance was noted following discontinuation however, also, no worsening of his tremor was noted and primidone was not resumed. In 2022, he had some episodes of vertigo. Meclizine was not of benefit. His vertigo resolved. He had some positional disequilibrium beginning in 2023 but this subsequently resolved. Vestibular rehabilitation was not of benefit. He denied having any tinnitus. He has chronic hearing loss. He has had some memory difficulty since 2022. He has had word finding difficulty. He has had some difficulty recalling upcoming appointments and other daily plans. He however remains independent in his activities of daily living. He does not have a tendency to repeat conversations. He takes venlafaxine ER for depression. He denied having anxiety. He has had insomnia. His insomnia has diminished following initiation of tizanidine in 2023. He does not feel well rested when he awakens in the morning. He does not snore at night. He commonly naps during the day. He has daytime hypersomnia and fatigue. His sleep study did not reveal sleep apnea however, he did exhibit periodic leg movements. Leg restlessness has not been noted by his . He exhibited sensory loss in the feet. EMG/nerve conduction studies reveal a sensorimotor polyneuropathy. His laboratory evaluation for polyneuropathy revealed an abnormal serum free light chains and elevated serum glucose (he has diabetes mellitus). A subsequent serum protein electrophoresis, serum immunofixation and urine immunofixation did not reveal monoclonality. He has had elevated transaminases. He has a fatty liver. A hepatitis panel was negative. Mini-mental status exam score was 29/30 in September 2023. He has constipation. Docusate and MiraLAX were not of benefit. Linzess has been of benefit however, due to cost, was discontinued. Senna was not of benefit. Polyethylene glycol was not of benefit. His head MRI with attention to the IACs reveals moderate diffuse cerebral atrophy and moderate bilateral periventricular and subcortical white matter chronic small vessel ischemic disease; some bilateral lateral ventricle and third ventricular prominence is noted that that may be commensurate with the degree of diffuse cerebral atrophy however the possibility of normal pressure hydrocephalus was raised as a diagnostic consideration. A lumbar puncture was performed in January 2025 to assess for the possibility of normal pressure hydrocephalus. Mini-Mental status exam score (01/20/2025) prior to his lumbar puncture was 28/30 and 27/30 following his lumbar puncture that day. Mini-Mental status exam score was 29/30 the following day (01/21/2025). Time to walk trials performed prior to and (more content not included)... Normal [facility] Platelet countOrdered By: Ra padmaja Rocha on 04-30-2025 Platelets (Bld) [#/Vol] 249 10*3/uL 150-450 [facility] RBC Auto (Bld) [#/Vol]Ordere d By: Chris Rocha on 04-30-2025 RBC (Bld) [#/Vol] 4.59 10*6/uL Low 4.6-6.2 [facility] White blood cell (WBC) count Ordered By: Chris Rocha on 04-30-2025 WBC (Bld) [#/Vol] 7.4 10*3/uL 4.4-11.0 [facility] Blood carboxyhemoglobin chris urement (mass/volume)Ordered By: Tate Alcazar on 04-17-2025 Carboxyhemoglobin (Bld) [Mass/Vol] 2.0 % High 0.0-1.5 [facility] L511.0135on 04-17-2025 COHb 2.0 High 0.0-1.5 [facility] Comment on above: Performed By: #### L 511.0135, [id number] #### [facility] [address], [address] L9999.0020on 04-17-2025 COHb Order ORDER TUBE Normal [facility] Comment on above: Performed By: #### L 511.0135, [id number] #### [facility] [place], [address] Laboratory - Specimen inform ationOrdered By: Tate Alcazar on 04-17-2025 Number of specimens obtained (Unsp spec) [#] ORDER TUBE [facility] MR Brain WO contraston 02-25 Addendum by Laila Leo MD on 03/30/2025 3:10 PM EDT Patient Name: LAILA COKER : 1950 Exam Date/Time: 02/23/2025 07:42 Procedure: MR BRAIN WO CONTRAST Ordering Provider: ROCHA RAYMOND Reason For Exam: mild cognitive impairment of uncertain or unknown etiology --------ADDENDUM #1 -------- CSF flow study was also performed with phase encoded imaging through the posterior fossa. There is normal pulsatile CSF flow through the aqueduct of Sylvius, fourth ventricle, ventral and dorsal to the brainstem at the craniocervical junction. ADDED IMPRESSION: The CSF flow study is normal. Report Dictated on Electronically Signed By: Laila Leo MD Electronically Signed Date/Time: 03/30/2025 3:10 PM EDT --------ORIGINAL REPORT -------- MRI BRAIN WITHOUT CONTRAST INDICATIONS: mild cognitive impairment of uncertain or unknown etiology COMPARISON: None TECHNIQUE: Multiplanar, multisequence MRI of the brain was performed without contrast. FINDINGS: Acute Change: No evidence of acute infarction. No fluid collection or intracranial hemorrhage. Mass Lesion: None. Parenchyma: Confluent foci of nonspecific T2/FLAIR hyperintensity in the deep supratentorial white matter bilaterally. Ventricles and sulci: The ventricles are moderately enlarged most likely secondary to central white matter volume loss. No evidence of hydrocephalus. Skull base: Normal appearance of the pituitary gland. Normal position of the cerebellar tonsils. Vessels: The major intracranial flow voids are preserved. Extracranial structures: Bilateral lens replacements; otherwise, the orbits are unremarkable. No extracranial soft tissue abnormalities. Sinuses/mastoids: Clear Bones: No pathologic marrow infiltration. IMPRESSION: 1. No acute intracranial abnormalities. 2. Moderately enlarged ventricles most likely secondary to central white matter volume loss. No evidence of hydrocephalus. 3. Moderate chronic small vessel ischemic changes in the deep white matter bilaterally. Report Dictated on Electronically Signed By: Laila Leo MD Electronically Signed Date/Time: 02/25/2025 8:38 PM EDT [facility] 1. No acute intracranial abnormalities. 2. Moderately enlarged ventricles most likely secondary to central white matter volume loss. No evidence of hydrocephalus. 3. Moderate chronic small vessel ischemic changes in the deep white matter bilaterally. Report Dictated on Electronically Signed By: Laila Leo MD Electronically Signed Date/Time: 02/25/2025 8:38 PM EDT [facility] Patient Name: LAILA COKER : 1950 Exam Date/Time: 02/23/2025 07:42 Procedure: MR BRAIN WO CONTRAST Ordering Provider: ROCHA RAYMOND Reason For Exam: mild cognitive impairment of uncertain or unknown etiology MRI BRAIN WITHOUT CONTRAST INDICATIONS: mild cognitive impairment of uncertain or unknown etiology COMPARISON: None TECHNIQUE: Multiplanar, multisequence MRI of the brain was performed without contrast. FINDINGS: Acute Change: No evidence of acute infarction. No fluid collection or intracranial hemorrhage. Mass Lesion: None. Parenchyma: Confluent foci of nonspecific T2/FLAIR hyperintensity in the deep supratentorial white matter bilaterally. Ventricles and sulci: The ventricles are moderately enlarged most likely secondary to central white matter volume loss. No evidence of hydrocephalus. Skull base: Normal appearance of the pituitary gland. Normal position of the cerebellar tonsils. Vessels: The major intracranial flow voids are preserved. Extracranial structures: Bilateral lens replacements; otherwise, the orbits are unremarkable. No extracranial soft tissue abnormalities. Sinuses/mastoids: Clear Bones: No pathologic marrow infiltration. [facility] Laila Leo MD - 02/25/2025 Patient Name: LAILA COKER : 1950 Exam Date/Time: 02/23/2025 07:42 Procedure: MR BRAIN WO CONTRAST Ordering Provider: ROCHA RAYMOND Reason For Exam: mild cognitive impairment of uncertain or unknown etiology MRI BRAIN WITHOUT CONTRAST INDICATIONS: mild cognitive impairment of uncertain or unknown etiology COMPARISON: None TECHNIQUE: Multiplanar, multisequence MRI of the brain was performed without contrast. FINDINGS: Acute Change: No evidence of acute infarction. No fluid collection or intracranial hemorrhage. Mass Lesion: None. Parenchyma: Confluent foci of nonspecific T2/FLAIR hyperintensity in the deep supratentorial white matter bilaterally. Ventricles and sulci: The ventricles are moderately enlarged most likely secondary to central white matter volume loss. No evidence of hydrocephalus. Skull base: Normal appearance of the pituitary gland. Normal position of the cerebellar tonsils. Vessels: The major intracranial flow voids are preserved. Extracranial structures: Bilateral lens replacements; otherwise, the orbits are unremarkable. No extracranial soft tissue abnormalities. Sinuses/mastoids: Clear Bones: No pathologic marrow infiltration. IMPRESSION: 1. No acute intracranial abnormalities. 2. Moderately enlarged ventricles most likely secondary to central white matter volume loss. No evidence of hydrocephalus. 3. Moderate chronic small vessel ischemic changes in the deep white matter bilaterally. Report Dictated on Electronically Signed By: Laila Leo MD Electronically Signed Date/Time: 02/25/2025 8:38 PM EDT [facility] MR Brain WO contrastOrdered By: Laila Leo on 02-25-2025 [facility] Work Phone: MR Brain WO contraston 02-23 Radiology Study observation (narrative) [facility] He alth VDRL Cerebrospinal Fluidon 0 01-22-2025 VDRL, CSF Non-Reactive Normal Non Kae:<1:1 [facility] Comment on above: Result Comment: Perf ormed at: - [facility] [id number] It Support Specialist: Rafi Gaming MD, Phone: [phone] Performed By: #### M 100.2300, M100.2000, L350.1000, L501.1600, L801.5410, L501.0400, L200.0100 #### [facility] [address] [place], [place], [id number] Cerebral Spinal Fluid Cultur cassidy 01-21-2025 [facility] No growth in 72 hours. Normal [facility] Comment on above: Performed By: #### M 100.2300, M100.2000, L350.1000, L501.1600, L801.5410, L501.0400, L200.0100 #### [facility] [address] [place], [address] Neurology Visit Reporton Neurology Visit Report [facility] [address], [address] [place] [address] OFFICE VISIT Date of Service: 01/21/25 MR#: [id number] Acct: [id number] Name: LAILA COKER Rep #: [id number] : 1950 Provider: Dr. Chris hoffman MD Age/Sex: 74/M Location: [facility] [place]. Status: Signed HPI HPI Chief Complaint: Details: Note: The patient presents for reassessment following a lumbar puncture performed yesterday for evaluation for possible normal pressure hydrocephalus. Opening pressure was 10 cmH2O. 40 mL of CSF was drained. Around 2020, he began to exhibit gait difficulty. He has had multiple falls. He has had some memory difficulty since 2022. He has had word finding difficulty. He has had some difficulty recalling upcoming appointments and other daily plans. He however remains independent in his activities of daily living. He does not have a tendency to repeat conversations. He takes venlafaxine ER for depression. He denied having anxiety. He has had insomnia. His insomnia has diminished following initiation of tizanidine in 2023. He does not feel well rested when he awakens in the morning. He does not snore at night. He commonly naps during the day. He has daytime hypersomnia and fatigue. His sleep study did not reveal sleep apnea however, he did exhibit periodic leg movements. Leg restlessness has not been noted by his . His head MRI with attention to the IACs reveals moderate diffuse cerebral atrophy and moderate bilateral periventricular and subcortical white matter chronic small vessel ischemic disease; some bilateral lateral ventricle and third ventricular prominence is noted that that may be commensurate with the degree of diffuse cerebral atrophy however the possibility of normal pressure hydrocephalus is a diagnostic consideration. He has cervical spine MRI reveals mild degenerative joint/disc disease; no significant central canal stenosis was noted; the spinal cord was normal. No central canal compromise or abnormal spinal cord signal is noted on his thoracic spine MRI. Today the patient's reports that following his lumbar puncture the patient exhibited improved mentation yesterday evening. His recall appeared better and he overall appeared mentally sharp. His conversation. She also noticed improvement of his gait yesterday. His gait was steadier and he was able to arise from the seated to the standing position easier. This morning however, his cognitive difficulties and gait difficulty returned to their pre-lumbar puncture baseline. Physical Exam: Neuro: The patient is awake and alert and responds appropriately; speech is fluent Mini-Mental status exam score today is 29/30 25 foot timed walk today: Trial #1: 10.45 seconds Trial #2 9.65 seconds On yesterday's (01/21/2025) assessment: Mini-Mental status exam score (01/21/2025) prior to lumbar puncture: 28/30 25 foot timed walk (01/21/2025): Prior to lumbar puncture: Trial #1: 7.36 seconds Trial #2: 7.7 seconds A lumbar puncture was performed around noon yesterday (01/21/2025) and he returned to the office yesterday afternoon for reassessment. Mini-Mental status exam score (01/21/2025) after lumbar puncture: 27/30 25 foot timed walk (01/21/2025) after lumbar puncture: Trial #1: 9 seconds. Trial #2: 8.74 seconds Supplemental Info CMP (10/09/2022): Glucose 158 (high), BUN 22 (high), BUN/creatinine ratio 20.6 (high), AST 60 (high), ALT 99 (high) CBC BMP, lipid profile, TSH (04/17/2023): MCV 94.1 (high), sodium 134 (low), BUN 21 (high), glucose 165 (high), triglycerides 97 (normal), cholesterol 144 (normal), LDL 78 (normal), VLDL 19 (normal), HDL 47 (normal) Head MRI (05/12/2023): FINDINGS: There is moderate cerebral atrophy with widening of the extra-axial spaces and ventricular dilatation. There are multiple white matter hyperintensities, distributed throughout the deep white matter tracts of the cerebral hemispheres, consistent with moderate chronic white matter ischemic changes. There is no evidence for recent intracranial ischemia or other cause of cytotoxic edema on diffusion weighted imaging (DWI). Normal T2* images of the brain without demonstrated susceptibility artifact. There is no demonstrated hemosiderin stain. Normal bilateral basal ganglia. Normal thalami. There is no extra-axial fluid accumulation. Normal flow voids within the major intracranial circulation suggesting patency by spin echo criteria. Normal sella turcica, pituitary gland, infundibular stalk, optic chiasm and hypothalamus. Normal tectal plate and pineal gland. Normal midbrain, estefani and medulla. Normal cerebellum. Normal basal cisterns. Normal bilateral temporal bones. Normal bilateral internal auditory canals. There are bilateral ocular lens implants with otherwise normal intraorbital contents. Normal visualized paranasal sinuses. Normal calvar (more content not included)... Normal [facility] Spinal Fluid Cell Count+Diff on 01-21-2025 PATH REV Normal [facility] Comment on above: Order Comment: RARE LYMPHOCYTES AND MACROPHAGES SEEN. Leslie Herron MD 01/21/2025 Result Comment: RARE LYMPHOCYTES AND MACROPHAGES SEEN. Leslie Herron MD 01/21/2025 Specimen Markers: SRMS RARE LYMPHOCYTES AND MACROPHAGES SEEN. Leslie Herron MD 01/21/2025 AMENDED REPORT 01/21/25 1100 PATH REV previously reported as: May follow Performed By: #### M 100.2300, M100.2000, L350.1000, L501.1600, L801.5410, L501.0400, L200.0100 #### [facility] [address] [place], [address] Activated partial thrombopla stin time (aPTT) in platelet poor plasma by coagulation aOrdered By: Lawrence Shah on 01-20-2025 aPTT Coag (PPP) [Time] 25.7 s 24.1-36.2 [facility] Cerebrospinal fluid color id entificationOrdered By: Chris Rocha on 01-20-2025 Color (CSF) COLORLESS Colorless [facility] Cerebrospinal fluid erythroc ytes count (number/volume)Ordered By: Chris Rocha on 01-20-2025 RBC (CSF) [#/Vol] 0 /mm-3 None seen [facility] Cerebrospinal fluid glucose measurement (mass/volume)Ordered By: Chris Rocha on 01-20-2025 Glucose (CSF) [Mass/Vol] 102 mg/dL High 40-75 [facility] Cerebrospinal fluid leukocyt es count (number/volume)Ordered By: Chris Rocha on 01-20-2025 WBC (CSF) [#/Vol] 0 /mm-3 0-5 [facility] Cerebrospinal fluid reagin a ntibody detectionOrdered By: Chris Rocha on 01-20-2025 Reagin Ab Ql (CSF) Non-Reactive Non Kae:<1:1 [facility] Comment on above: Performed at: [address] [id number] Director: Rafi Gaming MD, Phone: [phone] Cerebrospinal fluid total ce ll countOrdered By: Chris Rocha on 01-20-2025 Cells Counted Total (CSF) [#] TNP [facility] Comment on above: Test not performed Cytology report of Body flui d Cyto stainOrdered By: Chris Rocha on 01-20-2025 Cytology report Cyto stain Doc (Body fld) SEE PATHOLOGY REPORT [facility] Comment on above: Specimen submitted t o Anatomical Pathology Department for testing. Cytology, Body Fluid / CSFon 01-20-2025 CYTOLOGY,BF/CSF SEE PATHOLOGY REPORT Normal [facility] Comment on above: Order Comment: SPINE Result Comment: Spec imen submitted to Anatomical Pathology Department for testing. Performed By: #### M 100.2300, M100.2000, L350.1000, L501.1600, L801.5410, L501.0400, L200.0100 #### [facility] [address] [place], [place], [id number] Determination of appearance of cerebrospinal fluid (nominal result)Ordered By: Chris Rocha on 01-20-2025 Appearance (CSF) CLEAR Clear [facility] Dx Lumbar Puncture w/IMG Facundo nicol 01-20-2025 Dx Lumbar Puncture w/IMG Guide [facility] Imaging Services [address] [place], [place] [id number] Dx Lumbar Puncture w/IMG Guide MR#: [id number] Acct: [id number] Name: LAILA COKER Rep #: [id number] : 1950 M 74 From: [place] PCP: Dr. 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 COMPARISON: None. FINDINGS: Procedure: Following informed consent, and using standard sterile technique, a lumbar puncture at the level of L2-L3 was performed via a left posterior oblique approach. 2% lidocaine local anesthesia was followed by placement a 20 gauge spinal needle into the thecal sac at the L2-L3 level. 40 mL clear fluid was then successfully removed. No complication was encountered, and the patient left the department in good condition, without significant complaint. RAD/Dx Lumbar Puncture w/IMG Guide IMPRESSION: Successful high-volume fluoroscopically guided lumbar puncture, with 40 mL clear fluid successfully removed. Reading Location: [place] [address] CC: Dr. Tate Alcazar MD; Dr. Chris Rocha MD Patient Access Director: Signed Normal [facility] Glucose Spinal Fluidon 01-20 GLU SPINAL FLD 102 mg/dL High 40-75 [facility] Comment on above: Performed By: #### M 100.2300, M100.2000, L350.1000, L501.1600, L801.5410, L501.0400, L200.0100 #### [facility] [address] [place], [address] Gram Stainon 01-20-2025 GS Centrifuged Specimen? Culture performed on centrifuged specimen Gram Stain No organisms seen Rare White Blood Cells Rare Red Blood Cells Normal [facility] Comment on above: Performed By: #### M 100.2300, M100.2000, L350.1000, L501.1600, L801.5410, L501.0400, L200.0100 #### [facility] [address] [place], [place], [id number] Gram stainOrdered By: Celestino Rocha on 01-20-2025 Microscopic observation Gram stain Nom (Unsp spec) [facility] International normalized rat io (INR) calculationOrdered By: Lawrence Shah on 01-20-2025 INR Coag (Bld) [Relative time] 1.0 {INR} [facility] - Specimen inform ationOrdered By: Chris Rocha on 01-20-2025 Tube number Nom (CSF) [ID] 3 [facility] Neurology Visit Reporton Neurology Visit Report [facility] [address] [place] [address], [address] [place], [place] [address] OFFICE VISIT Date of Service: 01/20/25 MR#: [id number] Acct: [id number] Name: LAILA COKER Rep #: [id number] : 1950 Provider: Dr. Chris hoffman MD Age/Sex: 74/M Location: [facility] [place]. Status: Signed HPI HPI Details: The patient was seen in the office earlier today prior to his lumbar puncture and return for reassessment today following his lumbar puncture performed around noon. The combined note for today's visits is documented in the first of today's notes. Intake Vital Signs 12/25/24 10:55 01/20/25 08:24 01/20/25 12:03 01/20/25 14:53 Height 5 ft 10 in 5 ft 10 in 5 ft 10 in BP 166/84 H Blood Pressure Location Lt brachial Position Sitting Respiration 15 Pulse 86 Pulse Source Monitor Temp 98.0 F Temp Source Temporal Pulse Oximetry (%) 96 Oxygen Delivery Method room air Intake Visit Reasons: AFTER PROCEDURE Allergies Penicillins Allergy (Verified 01/21/25 09:06) Hives Have you fallen in the past year?: Yes [facility] Medical History (Updated 01/20/25 @ 12:09 by Corinna Moreno) Abnormal gait Insomnia Diabetes Hypertension Social History Smoking Status: Never smoker Clinical Quality Measures Falls Risk Screening/Assistive Devices Have you fallen in the past year?: Yes Coding Level of Care Code No Charge Comment Lev 4 follow-up visit is already billed for today. No additional charge. 01/21/25 1623 Date Chris Rocha MD Cosign Signature: Date (if applicable) CC: Normal [facility] Neurology Visit Report [facility] [address] [place] [address], [address] [place] [address] OFFICE VISIT Date of Service: 01/20/25 MR#: [id number] Acct: [id number] Name: LAILA COKER Rep #: [id number] : 1950 Provider: Dr. Chris hoffman MD Age/Sex: 74/M Location: [facility] [place]. Status: Signed HPI HPI Chief Complaint: Details: Interim History: Laila returns for follow-up visit. He has a history of diabetes mellitus, hyperlipidemia, and hypertension (he is no longer on medication for this condition). Around 2020, he began to exhibit slowing and shuffling of his gait. He had multiple falls. Since 2022, his voice became hypophonic. He denied having swallowing difficulty. He has had a tremor that is worsened with action. His tremor had worsened over time. The tremor has affected both hands and interferes with activities such as holding a cup and writing. He has had numbness and tingling in the feet since 2022. He has experienced occasional momentary sharp pain in the feet (this does not occur daily). His legs feel weak and heavy. Physical therapy in 2022 was of some benefit for his lower extremity weakness. Subsequent physical therapy was not of benefit. He previously had neck pain; this subsided. He had chronic fluctuating low back pain. Chiropractic therapy for his back pain and neck pain was of benefit. He is not experiencing lower extremity radicular pain. He had occasional lightheadedness when he rises to a standing position. His gait now is unsteady but is no longer shuffling. A trial carbidopa/levodopa 25/100 2 tablets TID appeared initially to result in some improvement of his gait however he subsequently ran out of of carbidopa/levodopa and did not notice any change in his symptoms. On reassessment at this office in May 2024, I was no longer convinced that he had Parkinson's disease. His tremor may be an essential tremor. He has had reduction of his tremor following initiation of primidone and he no longer is experiencing any significant tremor. A trial of discontinuation of primidone was made to assess whether primidone may have caused a side effect of gait imbalance. No improvement of his gait imbalance was noted following discontinuation however, also, no worsening of his tremor was noted and primidone was not resumed. In 2022, he had some episodes of vertigo. Meclizine was not of benefit. His vertigo resolved. He had some positional disequilibrium beginning in 2023 but this subsequently resolved. Vestibular rehabilitation was not of benefit. He denied having any tinnitus. He has chronic hearing loss. He has had some memory difficulty since 2022. He has had word finding difficulty. He has had some difficulty recalling upcoming appointments and other daily plans. He however remains independent in his activities of daily living. He does not have a tendency to repeat conversations. He takes venlafaxine ER for depression. He denied having anxiety. He has had insomnia. His insomnia has diminished following initiation of tizanidine in 2023. He does not feel well rested when he awakens in the morning. He does not snore at night. He commonly naps during the day. He has daytime hypersomnia and fatigue. His sleep study did not reveal sleep apnea however, he did exhibit periodic leg movements. Leg restlessness has not been noted by his . He exhibited sensory loss in the feet. EMG/nerve conduction studies reveal a sensorimotor polyneuropathy. His laboratory evaluation for polyneuropathy revealed an abnormal serum free light chains and elevated serum glucose (he has diabetes mellitus). A subsequent serum protein electrophoresis, serum immunofixation and urine immunofixation did not reveal monoclonality. He has had elevated transaminases. He has a fatty liver. A hepatitis panel was negative. Mini-mental status exam score was 29/30 in September 2023. He has constipation. Docusate and MiraLAX were not of benefit. Linzess has been of benefit however, due to cost, was discontinued. Senna was not of benefit. Polyethylene glycol is not of benefit. His head MRI with attention to the IACs reveals moderate diffuse cerebral atrophy and moderate bilateral periventricular and subcortical white matter chronic small vessel ischemic disease; some bilateral lateral ventricle and third ventricular prominence is noted that that may be commensurate with the degree of diffuse cerebral atrophy however the possibility of normal pressure hydrocephalus is a diagnostic consideration. And he presents today for lumbar puncture evaluation to assess for the possibility of normal pressure hydrocephalus. He is cervical spine MRI reveals mild degenerative joint/disc disease; no significant central canal stenosis was noted; the spinal cord was normal. No central canal compromise or abnormal spinal cord signal is noted on his thoracic spine MRI. Physical Exam: Neuro: The patient is awak (more content not included)... Normal [facility] Pap Stain (control)on 2024 Pap Stain (control) Patient Age/Sex Location Account Attending Physician LAILA COKER 74/M [facility] [id number] Dr. Chris Rocha MD Specimen: [id number] Received: 01/20/25 Status: LUZ MARIA Zavala Num: [id number] Spec Type: JACKIE Lagos Dr: Dr. Chris Rocha MD HEADER OPERATION: Not noted PRE-OP DIAGNOSIS: Mild cognitive impairment of uncertain or unknown etiology, normal pressure hydrocephalus TISSUE SUBMITTED: A- Cerebral spinal fluid for cytology DIAGNOSIS CYTOLOGY A. Cerebrospinal fluid: * No malignant cells are identified CYTOLOGY STUDY Slides are reviewed. CYTOLOGY GROSS A. Received is 6 ml of clear fluid labeled with the patient's name and and designated per the requisition as Cerebral spinal fluid. Submitted for cytology and cell block preparation. 01/20/2025 CPT: 76195 Signed (signature on file) Dr. Eve Hawk, 01/28/25 1553 Normal [facility] Comment on above: Performed By: #### M 100.2300, M100.2000, L350.1000, L501.1600, L801.5410, L501.0400, L200.0100 #### [facility] [address] [place], [address] Partial Thromboplast Timeon 01-20-2025 aPTT Coag (Bld) [Time] 25.7 s Normal 24.1-36.2 [facility] Comment on above: Performed By: #### L 511.0135, L9999.0020 #### [facility] [address] [place], [address] Protein Spinal Fluidon 01-20 PROTEIN CSF 37.9 mg/dL Normal 15.0-45.0 [facility] Comment on above: Order Comment: SPINA L FLUID Performed By: #### M 100.2300, M100.2000, L350.1000, L501.1600, L801.5410, L501.0400, L200.0100 #### [facility] [address] [place], [address] Prothrombin Time w/INRon INR Coag (PPP) [Relative time] 1.0 {INR} Normal [facility] Comment on above: Performed By: #### L 511.0135, L9999.0020 #### [facility] [address] [place], [address] Prothrombin timeOrdered By: Lawrence Shah on 01-20-2025 PT Coag (PPP) [Time] 13.1 s Normal 11.7-14.9 [facility] Comment on above: Performed By: #### L 511.0135, L9999.0020 #### [facility] [address] [place], [address] Review by pathologistOrdered By: Chris Rocha on 01-20-2025 Pathologist review Yunier (Unsp spec) [Interp] See comment [facility] Comment on above: RARE LYMPHOCYTES AND MACROPHAGES SEEN. Leslie Herron MD 01/21/2025 Specimen Markers: SRMSPrevious reported result: January follow Edited by: MRYAN on 01/21/25:1100RARE LYMPHOCYTES AND MACROPHAGES SEEN.Leslie Herron MD 01/21/2025 AMENDED REPORT 01/21/25 1100 PATH REV previously reported as: January follow Neurology Visit Reporton Neurology Visit Report [facility] [address], [address] [place] [address] OFFICE VISIT Date of Service: 12/25/24 MR#: [id number] Acct: [id number] Name: LAILA COKER Rep #: [id number] : 1950 Provider: Dr. Chris hoffman MD Age/Sex: 74/M Location: [facility] [place]. Status: Signed with Addenda ADDENDUM by Dr. Chris Rocha MD on 01/03/25 at 2101 Addendum Addendum (01/03/25): ESR, magnesium, hemoglobin A1c, ammonia, creatine kinase, myoglobin, aldolase (10/30/24): hemoglobin A1c 6.6 (high) Hepatitis panel (10/30/24): negative. Thoracic spine MRI (11/14/24): FINDINGS: Vertebrae: Thoracic vertebral body heights are preserved. Few T1 bright likely vertebral body hemangiomas most notably within T11, otherwise marrow signal is unremarkable. Alignment: Unremarkable Spinal Cord: As below, otherwise unremarkable. No cord signal abnormality identified. Disc spaces: Variable disc desiccation and multilevel disc height loss with multilevel largely midthoracic anterior disc/osteophyte complexes. Mild central disc protrusion at T6-T7 without significant spinal canal stenosis. Right paracentral and subarticular disc protrusion at T7-T8 measuring 8 x 2 mm with minimal contour abnormality along the adjacent right anterolateral spinal cord on axial images, although surrounding CSF is preserved. Diffuse disc bulging at T8-T9 resulting in minimal focal spinal canal stenosis. No significant thoracic foraminal stenosis. Multilevel facet arthropathy. Paraspinal Tissues: Small hiatal hernia. Partially imaged presumed right renal cyst, incompletely characterized and not well evaluated. Other: At least mild spinal canal stenosis suggested from C5-C7, incompletely imaged and not well evaluated. Lumbar spondylosis also present, similarly incompletely imaged and not well evaluated. IMPRESSION: 1. Thoracic spondylosis as detailed, without significant spinal canal stenosis or abnormal cord signal identified. A small right paracentral and subarticular disc protrusion at T7-T8 is associated with a mild cord contour abnormality however there is no significant spinal canal stenosis. Notably, cervical and lumbar spondylosis are present with at least mild spinal canal stenosis suggested at the level of the mid to lower cervical spine, incompletely imaged and not well evaluated. Consider dedicated MRI cervical spine as indicated, unless performed elsewhere. 2. Additional description as above. Correction: In the history section of the 12/25/24 office note, change No central canal compromise or abnormal spinal cord signal is noted on his thoracic spine MRI. to, No significant central canal compromise, or abnormal spinal cord signal is noted on his thoracic spine MRI. 01/03/252100 Date Chris Rocha MD cc: * Signed HPI HPI Chief Complaint: Details: Interim History: Laila returns for follow-up visit. He has a history of diabetes mellitus, hyperlipidemia, and hypertension (he is no longer on medication for this condition). Around 2020, he began to exhibit slowing and shuffling of his gait. He had multiple falls. Since 2022, his voice became hypophonic. He denied having swallowing difficulty. He has had a tremor that is worsened with action. His tremor had worsened over time. The tremor has affected both hands and interferes with activities such as holding a cup and writing. He has had numbness and tingling in the feet since 2022. He has experienced occasional momentary sharp pain in the feet (this does not occur daily). His legs feel weak and heavy. Physical therapy in 2022 was of some benefit for his lower extremity weakness. Subsequent physical therapy was not of benefit. He previously had neck pain; this subsided. He had chronic fluctuating low back pain. Chiropractic therapy for his back pain and neck pain was of benefit. He is not experiencing lower extremity radicular pain. He had occasional lightheadedness when he rises to a standing position. His gait now is unsteady but is no longer shuffling. A trial carbidopa/levodopa 25/100 2 tablets TID appeared initially to result in some improvement of his gait however he subsequently ran out of of carbidopa/levodopa and did not notice any change in his symptoms. On reassessment at this office in May 2024, I was no longer convinced that he had Parkinson's disease. His tremor may be an essential tremor. He has had reduction of his tremor following initiation of primidone and presently is not experiencing any significant tremor. A trial of discontinuation of primidone was made to assess whether primidone may have caused a side effect of gait imbalance. No improvement of his gait imbalance was noted following discontinuation however, also, no worsening of his tremor was noted and primidone was not resumed. In 2022, he had some (more content not included)... Normal [facility] Magnetic resonance imaging r eportOrdered By: Destin Pablo on 11-17-2024 Study report [facility] Imaging Services [address] [place] [address] Spine Thoracic (Routine) MR#: [id number] Acct: [id number] Name: LAILA COKER Rep #: [id number] : 1950 M 74 From: Jacquie Pablo MD PCP: Dr. Tate Alcazar MD Status: REG CLI Study:Spine Thoracic (Routine) Date of Exam: 11/14/24 Exam# [id number] Ordering Dr: Chris Rocha MD PROCEDURE: SPINE THORACIC (ROUTINE) TECHNIQUE: Noncontrast thoracic spine MRI. COMPARISON: None. FINDINGS: Vertebrae: Thoracic vertebral body heights are preserved. Few T1 bright likely vertebral body hemangiomas most notably within T11, otherwise marrow signal is unremarkable. Alignment: Unremarkable Spinal Cord: As below, otherwise unremarkable. No cord signal abnormality identified. Disc spaces: Variable disc desiccation and multilevel disc height loss with multilevel largely midthoracic anterior disc/osteophyte complexes. Mild central disc protrusion at T6-T7 without significant spinal canal stenosis. Right paracentral and subarticular disc protrusion at T7-T8 measuring 8 x 2 mm with minimal contour abnormality along the adjacent right anterolateral spinal cord on axial images, although surrounding CSF is preserved. Diffuse disc bulging at T8-T9 resulting in minimal focal spinal canal stenosis. No significant thoracic foraminal stenosis. Multilevel facet arthropathy. Paraspinal Tissues: Small hiatal hernia. Partially imaged presumed right renal cyst, incompletely characterized and not well evaluated. Other: At least mild spinal canal stenosis suggested from C5-C7, incompletely imaged and not well evaluated. Lumbar spondylosis also present, similarly incompletely imaged and not well evaluated. MRI/Spine Thoracic (Routine) IMPRESSION: 1. Thoracic spondylosis as detailed, without significant spinal canal stenosis or abnormal cord signal identified. A small right paracentral and subarticular disc protrusion at T7-T8 is associated with a mild cord contour abnormality however there is no significant spinal canal stenosis. Notably, cervical and lumbar spondylosis arepresent with at least mild spinal canal stenosis suggested at the level of the mid to lower cervical spine, incompletely imaged and not well evaluated. Consider dedicated MRI cervical spine as indicated, unless performed elsewhere. 2. Additional description as above. Reading Location: [facility] CC: Dr. Tate Alcazar MD; Dr. Chris Rocha MD ~ Patient Access Director: Signed [facility] Spine Thoracic (Routine)on 0 11-14-2024 Spine Thoracic (Routine) [facility] Imaging Services [address] [place], [place] [id number] Spine Thoracic (Routine) MR#: [id number] Acct: [id number] Name: LAILA COKER Rep #: [id number] : 1950 M 74 From: Destin Pablo MD PCP: Dr. Tate Alcazar MD Status: REG CLI Study: Spine Thoracic (Routine) Date of Exam: Exam# [id number] Ordering Dr: Chris Rocha MD PROCEDURE: SPINE THORACIC (ROUTINE) TECHNIQUE: Noncontrast thoracic spine MRI. COMPARISON: None. FINDINGS: Vertebrae: Thoracic vertebral body heights are preserved. Few T1 bright likely vertebral body hemangiomas most notably within T11, otherwise marrow signal is unremarkable. Alignment: Unremarkable Spinal Cord: As below, otherwise unremarkable. No cord signal abnormality identified. Disc spaces: Variable disc desiccation and multilevel disc height loss with multilevel largely midthoracic anterior disc/osteophyte complexes. Mild central disc protrusion at T6-T7 without significant spinal canal stenosis. Right paracentral and subarticular disc protrusion at T7-T8 measuring 8 x 2 mm with minimal contour abnormality along the adjacent right anterolateral spinal cord on axial images, although surrounding CSF is preserved. Diffuse disc bulging at T8-T9 resulting in minimal focal spinal canal stenosis. No significant thoracic foraminal stenosis. Multilevel facet arthropathy. Paraspinal Tissues: Small hiatal hernia. Partially imaged presumed right renal cyst, incompletely characterized and not well evaluated. Other: At least mild spinal canal stenosis suggested from C5-C7, incompletely imaged and not well evaluated. Lumbar spondylosis also present, similarly incompletely imaged and not well evaluated. MRI/Spine Thoracic (Routine) IMPRESSION: 1. Thoracic spondylosis as detailed, without significant spinal canal stenosis or abnormal cord signal identified. A small right paracentral and subarticular disc protrusion at T7-T8 is associated with a mild cord contour abnormality however there is no significant spinal canal stenosis. Notably, cervical and lumbar spondylosis are present with at least mild spinal canal stenosis suggested at the level of the mid to lower cervical spine, incompletely imaged and not well evaluated. Consider dedicated MRI cervical spine as indicated, unless performed elsewhere. 2. Additional description as above. Reading Location: [id number] CC: Dr. Tate Alcazar MD; Dr. Chris Rocha MD Patient Access Director: Signed Normal [facility] PT D/C Summary (1)on 025 PT D/C Summary (1) [facility] Physical Therapy [facility] [address] [place] [address] [address] [place] [address] / REHABILITATION SERVICES DISCHARGE SUMMARY MR#: [id number] Acct: [id number] Name: LAILA COKER Rep #: [id number] : 1950 74 From: Chilo Marin DPT, OCS, CSCS Referring Dr.: Dr. Chris Rocha MD Status: REG RCR Insurance: MEDICARE PART A B ANTH Discharge Summary D/C summary: It has been my pleasure to treat LAILA COKER referred by Dr. Chris Rocha MD, with the diagnosis of Peripheral vestibulopathy for a total of 13 visit(s). Discharge Date: Please see the following information for a summary of their discharge status. Subjective Subjective: Not improving. Balance still is up and down. Today feels normal, Sunday was a bad day maybe due to Sugar and will see doctor for that in a couple weeks. Trying to get the right amount. Doing gym ex himself 1x/week Pain R Knee: Pain Intensity (Out of 10): 0 L Knee: Pain Intensity (Out of 10): 0 Overall Improvement % Improvement: 10 Objective Objective/Function: Great balance today and moving well with trasnfers and walking. foam stance with ec looks easy today. However, according to him, he may wake up tomorrow completley different. No spinning dizzyness lately just unsteadyness. Goals Goal 1:: 120 Romberg foam ec to aid in ankle coordination balance Goal Progress: Goal Met Goal 2:: I appropriate HEP for gym strength and wt shift and balance ex that patient can continue on his own. Goal Progress: Goal Met Goal 3:: Pt feel 50% steadier in getting aaround and 50% more active Goal Progress: Not Progressing Goal 4:: DHI score 10 or less Goal Progress: Progressing Plan Plan: Pt thinks doctor may want a comuterized biodex balance test adn will call regareding an order and call within 2 weeks if to return for that test. From a PT point of view, it would not change our recent treatment and results will be highly dependent on how he feels each day d/c to gyma dn home HEP unles spatient or doctor sends script for balance test by end of [id number] to check on this) Multiple comorbidities and up and down nature of his symptoms and balance performance have made treatment challenging and progress unremarkable. he will continue his gym and home ex however. D/C Information d/c sentence: If there are questions or concerns regarding this patient's physical therapy, please feel free to call me at [phone]. Thank you for the referral of this patient. Sincerely, Chilo Marin, DPT, OCS, CSCS Balance/Gait/Functio nal tests Balance/Special Test Scores Functional Gait Assessment Score: 27 % Disability: 10.0000 CATSIB Score (Max score 120 seconds): 120 Dizziness Score: 20 Improvement % Improvement: 11/03/24 1406 CC: Dr. Tate Alcazar MD; Dr. Chris Rocha MD EBG Signed Normal [facility] Aldolaseon 10-31-2024 ALDOLASE 6.7 U/L Normal 3.3-10.3 [facility] Comment on above: Performed By: #### M 100.2300, M100.2000, L350.1000, L501.1600, L801.5410, L501.0400, L200.0100 #### [facility] [address] [place], [address] Hepatitis Panel Acuteon 10-18 COMMENT Comment Normal . [facility] Comment on above: Result Comment: Not infected with HCV unless early or acute infection is suspected (which may be delayed in an immunocompromised individual), or other evidence exists to indicate HCV infection. Performed By: #### M 100.2300, M100.2000, L350.1000, L501.1600, L801.5410, L501.0400, L200.0100 #### [facility] [address] [place], [address] HEP B CORE,IgM Negative Normal Negative [facility] Comment on above: Performed By: #### M 100.2300, M100.2000, L350.1000, L501.1600, L801.5410, L501.0400, L200.0100 #### [facility] [address] [place], [address] HEP B SURF AG Negative Normal Negative [facility] Comment on above: Performed By: #### M 100.2300, M100.2000, L350.1000, L501.1600, L801.5410, L501.0400, L200.0100 #### [facility] [address] [place], [address] HEP C VIRUS AB Non-Reactive Normal Non Reactive [facility] Comment on above: Performed By: #### M 100.2300, M100.2000, L350.1000, L501.1600, L801.5410, L501.0400, L200.0100 #### [facility] [address] [place], [place], [id number] HEPATITIS A-IgM Negative Normal Negative [facility] Comment on above: Result Comment: A ne gative anti-HAV IgM result suggests no recent or current HAV infection. Performed By: #### M 100.2300, M100.1999, L350.1000, L501.1600, L801.5410, L501.0400, L200.0100 #### [facility] [address] [facility] [place], [address] Myoglobin, Serumon 5 Myoglobin, Ser 49 ng/mL Normal 28-72 [facility] Comment on above: Result Comment: Perf ormed at: [facility] [id number] It Support Specialist: Thom Greenberg PhD, Phone: [phone] Performed By: #### M 100.2300, M100.1999, L350.1000, L501.1600, L801.5410, L501.0400, L200.0100 #### [facility] [address] [place], [address] Aldolase [Catalytic activity /Vol]Ordered By: Chris Rocha on 10-30-2024 Aldolase 6.7 U/L 3.3-10.3 [facility] Aldolase ser/plasOrdered By: Chris Rocha on 10-30-2024 Aldolase [Catalytic activity/Vol] 6.7 mU/mL 3.3-10.3 [facility] Ammoniaon 10-30-2024 Ammonia (P) [Moles/Vol] 19.0 umol/L Normal 11-32 [facility] Comment on above: Performed By: #### M 100.2300, M100.1999, L350.1000, L501.1600, L801.5410, L501.0400, L200.0100 #### [facility] [address] [place], [address] CPK Total, Creatine Kinaseon 10-30-2024 CPK TOTAL 133 U/L Normal 39-308 [facility] Comment on above: Performed By: #### M 100.2300, M100.2000, L350.1000, L501.1600, L801.5410, L501.0400, L200.0100 #### [facility] [address] [place], [address] Erythrocyte Sed Rateon 10-30 SED RATE 19 mm/hr Normal 0-20 [facility] Comment on above: Performed By: #### M 100.2300, M100.2000, L350.1000, L501.1600, L801.5410, L501.0400, L200.0100 #### [facility] [address] [place], [address] Erythrocyte sedimentation ra teOrdered By: Chris Rocha on 10-30-2024 ESR (Bld) [Velocity] 19 mm/h 0-20 [facility] HBV surface Ag IA QlOrdered By: Chris Rocha on 10-30-2024 Hepatitis B Surface Antigen Negative Negative [facility] Hemoglobin A1con 10-30-2024 HbA1c (Bld) [Mass fraction] 6.6 % High 3.8-5.6 [facility] Comment on above: Result Comment: Norm al < 5.7 % Prediabetic 5.7 - 6.4 % Diabetic >or= 6.5 % Please note range changes. Performed By: #### M 100.2300, M100.2000, L350.1000, L501.1600, L801.5410, L501.0400, L200.0100 #### [facility] [address] [place], [address] Hemoglobin A1c percentageOrd ered By: Chris Rocha on 10-30-2024 HbA1c (Bld) [Mass fraction] 6.6 % High 3.8-5.6 [facility] Comment on above: Normal < 5.7 % Predi abetic 5.7 - 6.4 % Diabetic >or= 6.5 % Please note range changes. Hepatitis A virus IgM antibo dy assayOrdered By: Chris Rocha on 10-30-2024 Hepatitis A IgM Antibody Negative Negative [facility] Comment on above: A negative anti-HAV IgM result suggests no recent orcurrent HAV infection. Hepatitis B virus core IgM a ntibody assayOrdered By: Chris Rocha on 10-30-2024 Hepatitis B Core IgM Antibody Negative Negative [facility] Hepatitis C virus antibody a ssayOrdered By: Chris Rocha on 10-30-2024 Hepatitis C Antibody (EIA) Non-Reactive Non Reactive [facility] Magnesiumon 10-30-2024 Magnesium [Mass/Vol] 2.4 mg/dL Normal 1.6-2.6 [facility] Comment on above: Performed By: #### M 100.2300, M100.2000, L350.1000, L501.1600, L801.5410, L501.0400, L200.0100 #### [facility] [address] [place] [address]. [place], [place], [id number] Magnesium measurementOrdered By: Chris Rocha on 10-30-2024 Magnesium [Mass/Vol] 2.4 mg/dL 1.6-2.6 [facility] Neurology Visit Reporton Neurology Visit Report [facility] [address] [place] [address], [address] [place], [place] [address] OFFICE VISIT Date of Service: 10/30/24 MR#: [id number] Acct: [id number] Name: LAILA COKER Rep #: [id number] : 1950 Provider: Dr. Chris hoffman MD Age/Sex: 74/M Location: [facility] Status: Signed with Addenda ADDENDUM by Dr. Chris Rocha MD on 11/03/24 at 1745 Addendum Addendum (11/03/2024): A thoracic spine MRI will be ordered to assess for the possibility of thoracic central spinal canal pathology (such as disc herniation, arthrosis, or mass) that may be contributing to his gait imbalance. 11/03/24 1745 Date Chris Rocha MD cc: Dr. Tate Alcazar MD * Signed HPI HPI Chief Complaint: Details: Interim History: Laila returns for follow-up visit. He has a history of diabetes mellitus, hyperlipidemia, and hypertension (he is no longer on medication for this condition). Around 2020, he began to exhibit slowing and shuffling of his gait. He had multiple falls. Since 2022, his voice became hypophonic. He denied having swallowing difficulty. He has had a tremor that is worsened with action. His tremor had worsened over time. The tremor has affected both hands and interferes with activities such as holding a cup and writing. He has had numbness and tingling in the feet since 2022. He has experienced occasional momentary sharp pain in the feet (this does not occur daily). His legs feel weak and heavy. He had a fall in 2023. Physical therapy in 2022 was of some benefit for his lower extremity weakness. More recent physcial therapy was not of benefit. He has been experiencing neck pain since 2022 however he denies having any neck pain presently. He had chronic fluctuating low back pain. Chiropractic therapy for his back pain and neck pain was of benefit. He is not experiencing lower extremity radicular pain. He had occasional lightheadedness when he rises to a standing position. A trial carbidopa/levodopa 25/100 2 tablets TID appeared initially to result in some improvement of his gait however he subsequently ran out of of carbidopa/levodopa and did not notice any change in his symptoms. On reassessment at this office in May 2024, I was no longer convinced that he had Parkinson's disease. His tremor may be an essential tremor. He has had reduction of his tremor following initiation of primidone and presently is not experiencing any significant tremor. A trial of discontinuation of primidone was made to assess whether primidone may have caused a side effect of gait imbalance. No improvement of his gait imbalance was noted following discontinuation however, also, no worsening of his tremor was noted and he has remained off of primidone. In 2022, he had some episodes of vertigo. Meclizine was not of benefit. His vertigo resolved however since May 2024. He has had positional disequilibrium that has been occurring almost daily and this has caused some gait imbalance. Vestibular rehabilitation has not been of benefit. He denied having any tinnitus. He has chronic hearing loss. His vertigo/disequilibri um is positional. He is not a exhibiting a shuffling gait. He has had some memory difficulty since 2022. He has had word finding difficulty. He has had some difficulty recalling upcoming appointments and other daily plans. He however remains independent in his activities of daily living. He does not have a tendency to forget conversations or to repeat conversations. He does not have any history of atypical antipsychotic medication use. He takes venlafaxine ER for depression. He denied having anxiety. He has had insomnia. His insomnia has diminished following initiation of tizanidine in 2023. He does not feel well rested when he awakens in the morning. He does not snore at night. He commonly naps during the day. He has daytime hypersomnia and fatigue. His sleep study did not reveal sleep apnea however, he did exhibit periodic leg movements. He exhibited sensory loss in the feet. EMG/nerve conduction studies reveal a sensorimotor polyneuropathy. His laboratory evaluation for polyneuropathy revealed an abnormal serum free light chains and elevated serum glucose (he has diabetes mellitus). A subsequent serum protein electrophoresis, serum immunofixation and urine immunofixation did not reveal monoclonality. He has had elevated transaminases. He has a fatty liver. Mini-mental status exam score was 29/30 in September 2023. He has constipation. Docusate and MiraLAX were not of benefit. Linzess has been of benefit however, due to cost, was discontinued. His head MRI with attention to the IACs reveals diffuse cerebral atrophy and moderate bilateral periventricular and subcortical white matter chronic small vessel ischemic disease. His cervical spine MRI reveals mild degenerative joint/disc di (more content not included)... Normal [facility] No Panel InformationOrdered By: Chris Rocha on 10-30-2024 Hepatitis C Antibody Comment Comment . [facility] Comment on above: Not infected with HC V unless early or acute infection issuspected (which may be delayed in an immunocompromisedindividual), or other evidence exists to indicate HCVinfection. Serum myoglobin measurementO rdered By: Chris Rocha on 10-30-2024 Myoglobin [Mass/Vol] 49 ng/mL [facility] Comment on above: Performed at: [address] [id number] Director: Thom Greenberg PhD, Phone: [phone] Serum or plasma hepatitis B virus surface antigen detection by immunoassayOrdered By: Chris Rocha on 10-30-2024 HBV surface Ag IA Ql Negative Negative [facility] Total creatine kinase measur ementOrdered By: Chris Rocha on 10-30-2024 CK [Catalytic activity/Vol] 133 U/L 39-308 [facility] Venous blood ammonia measure mentOrdered By: Chris Rocha on 10-30-2024 Ammonia (P) [Moles/Vol] 19.0 umol/L 11-32 [facility] Abdomen Limitedon 10-06-2024 Abdomen Limited [facility] Imaging Services [address] [place], [place] [address] Abdomen Limited MR#: [id number] Acct: [id number] Name: LAILA COKER Rep #: [id number] : 1950 M Adalberto From: Lawrence charles MD PCP: Dr. Tate Alcazar MD Status: [facility] Study: Abdomen Limited Date of Exam: 10/06/24 Exam# [id number] Ordering Dr: Tate Alcazar [id number] STUDY: ABDOMINAL ULTRASOUND - RIGHT UPPER QUADRANT REASON FOR VISIT: Male, 73 years old Other specified abnormal findings of blood chemistry TECHNIQUE: Ultrasound evaluation of the right upper quadrant was performed with real-time and static araujo-scale imaging. TECHNICAL QUALITY: Adequate. COMPARISON: Comparison is made with prior study dated April 12, 2022. FINDINGS: Liver: The liver measures 15.9 cm. There is increased echogenicity consistent with fatty infiltration. The bile ducts are within normal limits. There is hepatic color flow. The direction of portal flow is hepatopetal. There is no demonstrated mass lesion. Gallbladder: Normal distended gallbladder. The gallbladder wall measures 2.5 mm. There is a negative sonographic Johnson''s sign. There is no pericholecystic fluid. There are no gallstones. Sludge is seen within the gallbladder lumen. Common Bile Duct (C.B.D.): The common bile duct measures 4.4 mm. Pancreas: Normal size of the head, body and tail of the pancreas. There is normal echogenicity of the pancreas. There is no demonstrated pancreatic mass or cyst. Right Kidney: Normal size of the right kidney. The right kidney measures 11.7 cm x 4.7 cm x 6 cm. Normal renal cortex. The right cortex measures 1.8 cm. There is a 2.6 cm x 2.3 cm x 2.2 cm cyst in the superior pole of the kidney. I also suspect a 5 mm x 5 mm x 4 mm nonobstructive calculus in the midportion of the kidney. There is no right hydronephrosis. IMPRESSION: Fatty infiltration of the liver. Sludge is seen within the gallbladder lumen. Right renal cyst. Small nonobstructive right intrarenal calculus. Electronically Signed: Lawrence Shah MD at 10:02 [facility] , [id number] STUDY: ABDOMINAL ULTRASOUND - ELASTOGRAPHY REASON FOR VISIT: Male, 73 years old. Fatty infiltration of the liver. TECHNIQUE: Liver stiffness measurements were obtained on a Azooo 85 ultrasound machine using a CA 1-7 probe following the SRU guidelines. 3 measurements were obtained using a 2-D-SWE method. TheIQR/M was 12% suggesting a quality data set. TECHNICAL QUALITY: Adequate. COMPARISON: None. FINDINGS: Liver: Fatty infiltration of the liver. Median liver stiffness measured 10.1 kPa. Abdomen: There is no demonstrated mass lesion. US/Abdomen Limited IMPRESSION: Liver stiffness measures 10.1 kPa compatible with F2-F3 (Mild to moderate liver fibrosis) Metavir score. Electronically Signed: Lawrence Shah MD at 10:03 EST , CC: Dr. Tate Alcazar MD Patient Access Director: Signed Normal [facility] Hepatitis Panel Acuteon COMMENT Comment Normal . [facility] Comment on above: Order Comment: RARE LYMPHOCYTES AND MACROPHAGES SEEN. Leslie Herron MD 01/21/2025 Result Comment: Not infected with HCV unless early or acute infection is suspected (which may be delayed in an immunocompromised individual), or other evidence exists to indicate HCV infection. Performed By: #### M 100.2300, M100.2000, L350.1000, L501.1600, L801.5410, L501.0400, L200.0100 #### [facility] [address] [place], [address] HEP B CORE,IgM Negative Normal Negative [facility] Comment on above: Order Comment: RARE LYMPHOCYTES AND MACROPHAGES SEEN. Leslie Herron MD 01/21/2025 Performed By: #### M 100.2300, M100.2000, L350.1000, L501.1600, L801.5410, L501.0400, L200.0100 #### [facility] [address] [place], [address] HEP B SURF AG Negative Normal Negative [facility] Comment on above: Order Comment: RARE LYMPHOCYTES AND MACROPHAGES SEEN. Leslie Herron MD 01/21/2025 Performed By: #### M 100.2300, M100.2000, L350.1000, L501.1600, L801.5410, L501.0400, L200.0100 #### [facility] [address] [place], [place], [address] (052) HEP C VIRUS AB Non-Reactive Normal Non Reactive [facility] Comment on above: Order Comment: RARE LYMPHOCYTES AND MACROPHAGES SEEN. Leslie Herron MD 01/21/2025 Performed By: #### M 100.2300, M100.2000, L350.1000, L501.1600, L801.5410, L501.0400, L200.0100 #### [facility] [address] [place], [place], [id number] HEPATITIS A-IgM Negative Normal Negative [facility] Comment on above: Order Comment: RARE LYMPHOCYTES AND MACROPHAGES SEEN. Leslie Herron MD 01/21/2025 Result Comment: A ne gative anti-HAV IgM result suggests no recent or current HAV infection. Performed By: #### M 100.2300, M100.2000, L350.1000, L501.1600, L801.5410, L501.0400, L200.0100 #### [facility] [facility] [address] [place], [address] L501.5101on 09-23-2024 GGTP 162 IU/L Abnormal 0-65 [facility] Comment on above: Order Comment: BERNADETTE Mcqueen ADD GGTP HEP PANEL TO BLOOD DRAWN 09/19/24 ARIAN Result Comment: Perf ormed at: - [facility] [address] [id number] It Support Specialist: Thom Greenberg PhD, Phone: [phone] Performed By: #### L 511.0135, L9999.0020 #### [facility] [address] [place], [address] Spine Cervical (Routine)on 0 09-22-2024 Spine Cervical (Routine) [facility] Imaging Services [address] [place], [place] [id number] Spine Cervical (Routine) MR#: [id number] Acct: [id number] Name: LAILA COKER Rep #: [id number] : 1950 M 73 From: John James MD PCP: Dr. Tate Alcazar MD Status: REG CLI Study: Spine Cervical (Routine) Date of Exam: Exam# [id number] Ordering Dr: Chris Rocha MD [id number] STUDY: MRI CERVICAL SPINE WITHOUT CONTRAST REASON FOR EXAM: Male, 73 years old. Neck pain; spinal stenosis; gait disorder TECHNIQUE: Standardized fat and water weighted pulse sequences were obtained in the sagittal and axial planes. COMPARISON: MR cervical spine without contrast 10/15/2023. CTA neck 07/18/2023. FINDINGS: Normal foramen magnum and brainstem-cervical cord junction. Normal craniovertebral junction. Normal anterior atlantoaxial articulation. Normal odontoid process. Normal cervical lordosis. No suspicious recent or remote fractures of the vertebral bodies and posterior osseous elements of the cervical spine. No abnormal focal signal is of the vertebral bodies and posterior osseous elements. No cervical degenerative inflammatory arthropathy. C2-3: Normal endplates. Normal disc height, signal and morphology. Normal central canal and intervertebral neural foramina. C3-4: Normal endplates. Normal disc height, signal and morphology. Normal central canal and intervertebral neural foramina. C4-5: Normal endplates. Normal disc height. Minimal degenerative anterolisthesis of C4 on C5 is unchanged. Normal central canal and intervertebral neuroforamina. C5-6: Normal endplates. Mild disc space height narrowing. Prominent posterior marginal spurs. Normal central canal and intervertebral neuroforamina. C6-7: Normal endplates. Minimal disc space height narrowing. Mild posterior marginal spurs. Normal central canal and intervertebral neuroforamina. C7-T1: Normal endplates. Normal disc height, signal and morphology. Normal central canal and intervertebral neural foramina. T1-T2 and T2-T3: (Sagittal only). Normal endplates. Normal disc height, signal and morphology. Normal central canal and intervertebral neuroforamina. Normal cervical cord. Normal upper thoracic spinal cord. Normal visualized soft tissue structures. MRI/Spine Cervical (Routine) IMPRESSION: 1. No MRI evidence of cervical extruded disc fragment, cervical disc protrusion, spinal stenosis or cervical nerve root displacement. 2. Minimal degenerative anterolisthesis of C4 on C5. 3. Prominent posterior marginal spurs at C5-C6 disc space level without associated spinal stenosis or nerve root displacement. 4. Mild posterior marginal spurs at C6-C7 disc space level without associated spinal stenosis or nerve root displacement. 5. Normal cervical spinal cord. 6. No significant interval change when compared to MRI cervical spine of 10/15/2023 and CTA neck 07/18/2023. Electronically Signed: John James MD at 15:51 EST , CC: Dr. Tate Alcazar MD; Dr. Chris Rocha MD Patient Access Director: Signed Normal [facility] 16-BC-Koohdbq DOrdered By: Jovita Alcazar on 09-19-2024 Vitamin D 25-Hydroxy 61.6 ng/mL [facility] Comment on above: Vitamin D 25(OH) Sta tus Range Deficiency <20 ng/mL (50nmol/L) Insufficiency 20 - 30 ng/mL (50 - 75 nmol/L) Sufficiency 30 - 100 ng/mL (75 - 250 nmol/L) Toxicity >100 ng/mL (>250 nmol/L) Albumin to globulin ratioOrd ered By: Tate Alcazar on 09-19-2024 Albumin/Globulin [Mass ratio] 1.0 {ratio} 0.9-2.4 [facility] Bilirubin, totalOrdered By: Tate Alcazar on 09-19-2024 Bilirubin [Mass/Vol] 0.90 mg/dL 0.20-1.00 [facility] Comment on above: For patients on eltr ombopag therapy, use of Dimension Dupont TBIL is not recommended. Blood urea nitrogen (BUN)/cr eatinine ratioOrdered By: Tate Alcazar on 09-19-2024 Urea nitrogen/Creatinine [Mass ratio] 20.7 mg/mg High 10-20 [facility] Carbon dioxide measurementOr dered By: Tate Alcazar on 09-19-2024 CO2 [Moles/Vol] 25.0 mmol/L 21.0-32.0 [facility] Chloride measurementOrdered By: Tate Alcazar on 09-19-2024 Chloride [Moles/Vol] 106 mmol/L 98-107 [facility] Comprehensive Metabolic Prof ilon 09-19-2024 Albumin [Mass/Vol] 4.0 g/dL Normal 3.2-5.0 [facility] Comment on above: Order Comment: RARE LYMPHOCYTES AND MACROPHAGES SEEN. Leslie Herron MD 01/21/2025 Performed By: #### M 100.2300, M100.2000, L350.1000, L501.1600, L801.5410, L501.0400, L200.0100 #### [facility] [address] [place], [address] Albumin/Globulin [Mass ratio] 1.0 {ratio} Normal 0.9-2.4 [facility] Comment on above: Order Comment: RARE LYMPHOCYTES AND MACROPHAGES SEEN. Leslie Herron MD 01/21/2025 Performed By: #### M 100.2300, M100.2000, L350.1000, L501.1600, L801.5410, L501.0400, L200.0100 #### [facility] [address] [place], [address] ALK P 75 U/L Normal 45-117 [facility] Comment on above: Order Comment: RARE LYMPHOCYTES AND MACROPHAGES SEEN. Leslie Herron MD 01/21/2025 Performed By: #### M 100.2300, M100.2000, L350.1000, L501.1600, L801.5410, L501.0400, L200.0100 #### [facility] [address] [place], [address] ALT [Catalytic activity/Vol] 127 U/L High 16-61 [facility] Comment on above: Order Comment: RARE LYMPHOCYTES AND MACROPHAGES SEEN. Leslie Herron MD 01/21/2025 Performed By: #### M 100.2300, M100.2000, L350.1000, L501.1600, L801.5410, L501.0400, L200.0100 #### [facility] [address] [place], [address] AST [Catalytic activity/Vol] 102 U/L High 15-37 [facility] Comment on above: Order Comment: RARE LYMPHOCYTES AND MACROPHAGES SEEN. Leslie Herron MD 01/21/2025 Performed By: #### M 100.2300, M100.2000, L350.1000, L501.1600, L801.5410, L501.0400, L200.0100 #### [facility] [address] [place], [address] Bilirubin [Mass/Vol] 0.90 mg/dL Normal 0.20-1.00 [facility] Comment on above: Order Comment: RARE LYMPHOCYTES AND MACROPHAGES SEEN. Leslie Herron MD 01/21/2025 Result Comment: For patients on eltrombopag therapy, use of Dimension Dupont TBIL is not recommended. Performed By: #### M 100.2300, M100.2000, L350.1000, L501.1600, L801.5410, L501.0400, L200.0100 #### [facility] [address] [place], [address] BUN/CRE 20.7 RATIO High 10-20 [facility] Comment on above: Order Comment: RARE LYMPHOCYTES AND MACROPHAGES SEEN. Leslie Herron MD 01/21/2025 Performed By: #### M 100.2300, M100.2000, L350.1000, L501.1600, L801.5410, L501.0400, L200.0100 #### [facility] [address] [place], [address] CA,Total 9.1 mg/dL Normal 8.5-10.1 [facility] Comment on above: Order Comment: RARE LYMPHOCYTES AND MACROPHAGES SEEN. Leslie Herron MD 01/21/2025 Performed By: #### M 100.2300, M100.2000, L350.1000, L501.1600, L801.5410, L501.0400, L200.0100 #### [facility] [address] [place], [address] Chloride [Moles/Vol] 106 mmol/L Normal 98-107 [facility] Comment on above: Order Comment: RARE LYMPHOCYTES AND MACROPHAGES SEEN. Leslie Herron MD 01/21/2025 Performed By: #### M 100.2300, M100.2000, L350.1000, L501.1600, L801.5410, L501.0400, L200.0100 #### [facility] [address] [place], [address] CO2 [Moles/Vol] 25.0 mmol/L Normal 21.0-32.0 [facility] Comment on above: Order Comment: RARE LYMPHOCYTES AND MACROPHAGES SEEN. Leslie Herron MD 01/21/2025 Performed By: #### M 100.2300, M100.2000, L350.1000, L501.1600, L801.5410, L501.0400, L200.0100 #### [facility] [address] [place], [address] Creatinine [Mass/Vol] 1.11 mg/dL Normal 0.70-1.30 [facility] Comment on above: Order Comment: RARE LYMPHOCYTES AND MACROPHAGES SEEN. Leslie Herron MD 01/21/2025 Result Comment: The validity of the calculated GFR GFRAA in patients over 70 years has not been determined. Clinical correlation is essential. Performed By: #### M 100.2300, M100.2000, L350.1000, L501.1600, L801.5410, L501.0400, L200.0100 #### [facility] [address] [place], [address] EST GFR - AA 84 mL/min Normal >60 [facility] Comment on above: Order Comment: RARE LYMPHOCYTES AND MACROPHAGES SEEN. Leslie Herron MD 01/21/2025 Result Comment: Afri can Malian GFR Calc Performed By: #### M 100.2300, M100.2000, L350.1000, L501.1600, L801.5410, L501.0400, L200.0100 #### [facility] [address] [place], [address] GAP 6 Normal 5-15 [facility] Comment on above: Order Comment: RARE LYMPHOCYTES AND MACROPHAGES SEEN. Leslie Herron MD 01/21/2025 Performed By: #### M 100.2300, M100.2000, L350.1000, L501.1600, L801.5410, L501.0400, L200.0100 #### [facility] [address] [place], [address] GFR/1.73 sq M.predicted among non-blacks MDRD (S/P/Bld) [Vol rate/Area] 69 mL/min/{1.73_m2} Normal >60 [facility] Comment on above: Order Comment: RARE LYMPHOCYTES AND MACROPHAGES SEEN. Leslie Herron MD 01/21/2025 Result Comment: Non- GFR Calc Performed By: #### M 100.2300, M100.2000, L350.1000, L501.1600, L801.5410, L501.0400, L200.0100 #### [facility] [address] [place], [address] Globulin (S) [Mass/Vol] 4.0 g/dL Normal 2.2-4.2 [facility] Comment on above: Order Comment: RARE LYMPHOCYTES AND MACROPHAGES SEEN. Leslie Herron MD 01/21/2025 Performed By: #### M 100.2300, M100.2000, L350.1000, L501.1600, L801.5410, L501.0400, L200.0100 #### [facility] [address] [place], [address] Glucose [Mass/Vol] 110 mg/dL High 74-106 [facility] Comment on above: Order Comment: RARE LYMPHOCYTES AND MACROPHAGES SEEN. Leslie Herron MD 01/21/2025 Result Comment: Fast ing Glucose result from 100 to 125 mg/dL suggests IMPAIRED HOMEOSTASIS per A.D.A. criteria. Performed By: #### M 100.2300, M100.2000, L350.1000, L501.1600, L801.5410, L501.0400, L200.0100 #### [facility] [address] [place], [address] Potassium [Moles/Vol] 4.1 mmol/L Normal 3.5-5.1 [facility] Comment on above: Order Comment: RARE LYMPHOCYTES AND MACROPHAGES SEEN. Leslie Herron MD 01/21/2025 Performed By: #### M 100.2300, M100.2000, L350.1000, L501.1600, L801.5410, L501.0400, L200.0100 #### [facility] [address] [place], [address] Sodium [Moles/Vol] 138 mmol/L Normal 136-145 [facility] Comment on above: Order Comment: RARE LYMPHOCYTES AND MACROPHAGES SEEN. Leslie Herron MD 01/21/2025 Performed By: #### M 100.2300, M100.2000, L350.1000, L501.1600, L801.5410, L501.0400, L200.0100 #### [facility] [address] [place], [address] T PROT 8.0 g/dL Normal 6.4-8.2 [facility] Comment on above: Order Comment: RARE LYMPHOCYTES AND MACROPHAGES SEEN. Leslie Herron MD 01/21/2025 Performed By: #### M 100.2300, M100.2000, L350.1000, L501.1600, L801.5410, L501.0400, L200.0100 #### [facility] [address] [place], [address] Urea nitrogen [Mass/Vol] 23 mg/dL High 7-18 [facility] Comment on above: Order Comment: RARE LYMPHOCYTES AND MACROPHAGES SEEN. Leslie Herron MD 01/21/2025 Performed By: #### M 100.2300, M100.2000, L350.1000, L501.1600, L801.5410, L501.0400, L200.0100 #### [facility] [address] [place], [place], [address] Estimated glomerular filtrat ion rate (GFR) AmericanOrdered By: Tate Alcazar on 09-19-2024 Estimated GFR (MDRD) Amer 84 mL/min >60 [facility] Comment on above: GFR Calc Gamma glutamyl transferase ( GGT) measurementOrdered By: Tate Alcazar on 09-19-2024 Amylase [Catalytic activity/Vol] 162 U/L High 0-65 [facility] Comment on above: Performed at: [address] [id number] Director: Thom Greenberg PhD, Phone: [phone] Glomerular filtration rate ( GFR) estimationOrdered By: Tate Alcazar on 09-19-2024 Estimated GFR (MDRD) Non-Af Amer 69 mL/min >60 [facility] Comment on above: Non- GFR Calc Glucose measurementOrdered B y: Tate Alcazar on 09-19-2024 Glucose [Mass/Vol] 110 mg/dL High 74-106 [facility] Comment on above: Fasting Glucose resu lt from 100 to 125 mg/dL suggests IMPAIRED HOMEOSTASIS per A.D.A. criteria. HBV surface Ag IA QlOrdered By: Tate Alcazar on 09-19-2024 Hepatitis B Surface Antigen Negative Negative [facility] Hepatitis A virus IgM antibo dy assayOrdered By: Tate Alcazar on 09-19-2024 Hepatitis A IgM Antibody Negative Negative [facility] Comment on above: A negative anti-HAV IgM result suggests no recent orcurrent HAV infection. Hepatitis B virus core IgM a ntibody assayOrdered By: Tate Alcazar on 09-19-2024 Hepatitis B Core IgM Antibody Negative Negative [facility] Hepatitis C virus antibody a ssayOrdered By: Tate Alcazar on 09-19-2024 Hepatitis C Antibody (EIA) Non-Reactive Non Reactive [facility] High density lipoprotein (HD L) measurementOrdered By: Tate Alcazar on 09-19-2024 Cholesterol in HDL [Mass/Vol] 49 mg/dL >40 [facility] Comment on above: The drugs N-Acetylcy steine and Metamizole may falsely depress this assay. Reference Range HDL <40 mg/dL Low HDL Cholesterol HDL >or= 60 mg/dL High HDL Cholesterol Ironon 09-19-2024 Iron [Mass/Vol] 118 ug/dL Normal 65-175 [facility] Comment on above: Order Comment: RARE LYMPHOCYTES AND MACROPHAGES SEEN. Leslie Herron MD 01/21/2025 Performed By: #### M 100.2300, M100.2000, L350.1000, L501.1600, L801.5410, L501.0400, L200.0100 #### [facility] [address] [place], [address] Iron (Unsp spec) [Mass/Mass] Ordered By: Tate Alcazar on 09-19-2024 Iron [Mass/Vol] 118 ug/dL 65-175 [facility] - Chemistry and C hemistry - challengeOrdered By: Tate Alcazar on 09-19-2024 AST [Catalytic activity/Vol] 102 U/L High 15-37 [facility] Lipid Profileon 09-19-2024 Cholesterol [Mass/Vol] 134 mg/dL Normal 200 [facility] Comment on above: Order Comment: RARE LYMPHOCYTES AND MACROPHAGES SEEN. Leslie Herron MD 01/21/2025 Result Comment: <200 mg/dL Desirable 200-240 mg/dL Borderline >240 mg/dL High Risk Performed By: #### M 100.2300, M100.2000, L350.1000, L501.1600, L801.5410, L501.0400, L200.0100 #### [facility] [address] [place], [address] Cholesterol in HDL [Mass/Vol] 49 mg/dL Normal [facility] Comment on above: Order Comment: RARE LYMPHOCYTES AND MACROPHAGES SEEN. Leslie Herron MD 01/21/2025 Result Comment: The drugs N-Acetylcysteine and Metamizole may falsely depress this assay. Reference Range HDL <40 mg/dL Low HDL Cholesterol HDL >or= 60 mg/dL High HDL Cholesterol Performed By: #### M 100.2300, M100.2000, L350.1000, L501.1600, L801.5410, L501.0400, L200.0100 #### [facility] [address] [place], [address] Cholesterol in LDL [Mass/Vol] 72 mg/dL Normal 0-130 [facility] Comment on above: Order Comment: RARE LYMPHOCYTES AND MACROPHAGES SEEN. Leslie Herron MD 01/21/2025 Performed By: #### M 100.2300, M100.2000, L350.1000, L501.1600, L801.5410, L501.0400, L200.0100 #### [facility] [address] [place], [address] Cholesterol in VLDL [Mass/Vol] 13 mg/dL Normal 5-40 [facility] Comment on above: Order Comment: RARE LYMPHOCYTES AND MACROPHAGES SEEN. Leslie Herron MD 01/21/2025 Performed By: #### M 100.2300, M100.2000, L350.1000, L501.1600, L801.5410, L501.0400, L200.0100 #### [facility] [address] [place], [address] Triglyceride [Mass/Vol] 64 mg/dL Normal [facility] Comment on above: Order Comment: RARE LYMPHOCYTES AND MACROPHAGES SEEN. Leslie Herron MD 01/21/2025 Result Comment: The drugs N-Acetylcysteine and Metamizole may falsely depress this assay. Serum Triglycerides Reference Interval Normal <150 mg/dL Borderline high 150 - 199 mg/dL High 200 - 499 mg/dL Very High > or = 500 mg/dL Performed By: #### M 100.2300, M100.2000, L350.1000, L501.1600, L801.5410, L501.0400, L200.0100 #### [facility] [address] [place], [address] Low density lipoprotein (LDL ) cholesterol measurementOrdered By: Tate Alcazar on 09-19-2024 Cholesterol in LDL [Mass/Vol] 72 mg/dL 0-130 [facility] No Panel InformationOrdered By: Tate Alcazar on 09-19-2024 Hepatitis C Antibody Comment Comment . [facility] Comment on above: Not infected with HC V unless early or acute infection issuspected (which may be delayed in an immunocompromisedindividual), or other evidence exists to indicate HCVinfection. PSA,Total - Annual Screenon 09-19-2024 PSA,TOT SCREEN 2.46 ng/mL Normal 0.00-4.00 [facility] Comment on above: Order Comment: Order Date: 09/18/24Order Info: [id number] - CMPOrder Info: [id number] - LIPIDOrder Info: [id number] - TSHOrder Info: [id number] - PSAOrder Info: [id number] - FE Result Comment: This test was performed using the TPSA assay method for the Dimension chemistry system. Values obtained with different assay methods cannot be used interchangably. When changing PSA assays in the course of monitoring a patient, additional sequential testing should be carried out to confirm baseline values. Performed By: #### M 100.2300, M100.2000, L350.1000, L501.1600, L801.5410, L501.0400, L200.0100 #### [facility] [place], [address] Potassium measurementOrdered By: Tate Alcazar on 09-19-2024 Potassium [Moles/Vol] 4.1 mmol/L 3.5-5.1 [facility] Screening prostate specific antigen (PSA) measurementOrdered By: Tate Alcazar on 09-19-2024 Prostate Specific Antigen Screen 2.46 ng/mL 0.00-4.00 [facility] Comment on above: This test was perfor med using the TPSA assay method for [employer] chemistry system. Values obtained with differentassay methods cannot be used interchangably.When changing PSA assays in the course of monitoring apatient, additional sequential testing should be carriedout to confirm baseline values. Serum anion gap measurementO rdered By: Tate Alcazar on 09-19-2024 Anion gap [Moles/Vol] 6 mmol/L 5-15 [facility] Serum globulin measurementOr dered By: Tate Alcazar on 09-19-2024 Globulin (S) [Mass/Vol] 4.0 g/dL 2.2-4.2 [facility] Serum or plasma alanine luis otransferase (ALT) measurementOrdered By: Tate Alcazar on 09-19-2024 ALT [Catalytic activity/Vol] 127 U/L High 16-61 [facility] Serum or plasma albumin chris urement (mass/volume)Ordered By: Tate Alcazar on 09-19-2024 Albumin [Mass/Vol] 4.0 g/dL 3.2-5.0 [facility] Serum or plasma alkaline perry sphatase measurementOrdered By: Tate Alcazar on 09-19-2024 ALP [Catalytic activity/Vol] 75 U/L 45-117 [facility] Serum or plasma calcium chris urement (mass/volume)Ordered By: Tate Alcazar on 09-19-2024 Calcium [Mass/Vol] 9.1 mg/dL 8.5-10.1 [facility] Serum or plasma cholesterol measurement (mass/volume)Ordered By: Tate Alcazar on 09-19-2024 Cholesterol [Mass/Vol] 134 mg/dL <200 [facility] Comment on above: <200 mg/dL Desirable 200-240 mg/dL Borderline >240 mg/dL High Risk Serum or plasma creatinine m easurement (mass/volume)Ordered By: Tate Alcazar on 09-19-2024 Creatinine [Mass/Vol] 1.11 mg/dL 0.70-1.30 [facility] Comment on above: The validity of the calculated GFR & GFRAA in patients over 70 years has not been determined. Clinical correlation is essential. Serum or plasma urea nitroge n measurement (mass/volume)Ordered By: Tate Alcazar on 09-19-2024 Urea nitrogen [Mass/Vol] 23 mg/dL High 7-18 [facility] Sodium levelOrdered By: Fawad Alcazar on 09-19-2024 Sodium [Moles/Vol] 138 mmol/L 136-145 [facility] TSH QnOrdered By: Nelson Alcazar on 09-19-2024 Thyroid Stimulating Hormone (TSH) 1.710 uIU/mL 0.358-3.740 [facility] Testosterone, totalOrdered B y: Tate Alcazar on 09-19-2024 Testosterone [Mass/Vol] 502.92 ng/dL Normal [facility] Comment on above: CENTRAL 90% REFERENC E RANGES MALE AGE <50 197.44 - 669.58 ng/dL MALE AGE > or = 50 187.72 - 684.19 ng/dL FEMALE AGE <50 8.38 - 35.01 ng/dL FEMALE AGE > or = 50 <7.00 - 35.92 ng/dL Effective as of 04/12/21 Order Comment: RARE LYMPHOCYTES AND MACROPHAGES SEEN. Leslie Herron MD 01/21/2025 Result Comment: CENT RAL 90% REFERENCE RANGES MALE AGE <50 197.44 - 669.58 ng/dL MALE AGE > or = 50 187.72 - 684.19 ng/dL FEMALE AGE <50 8.38 - 35.01 ng/dL FEMALE AGE > or = 50 <7.00 - 35.92 ng/dL Effective as of 04/12/21 Performed By: #### M 100.2300, M100.2000, L350.1000, L501.1600, L801.5410, L501.0400, L200.0100 #### [facility] [address] [place], [address] Thyroid Stim Hormone (TSH)on 09-19-2024 TSH 1.710 uIU/mL Normal 0.358-3.740 [facility] Comment on above: Order Comment: RARE LYMPHOCYTES AND MACROPHAGES SEEN. Leslie Herron MD 01/21/2025 Performed By: #### M 100.2300, M100.2000, L350.1000, L501.1600, L801.5410, L501.0400, L200.0100 #### [facility] [address] [place], [address] Total proteinOrdered By: Laurent Alcazar on 09-19-2024 Protein [Mass/Vol] 8.0 g/dL 6.4-8.2 [facility] Triglycerides measurementOrd ered By: Tate Alcazar on 09-19-2024 Triglyceride [Mass/Vol] 64 mg/dL <199 [facility] Comment on above: The drugs N-Acetylcy steine and Metamizole may falsely depress this assay.Serum Triglycerides Reference Interval Normal <150 mg/dL Borderline high 150 - 199 mg/dL High 200 - 499 mg/dL Very High > or = 500 mg/dL Very low density lipoprotein (VLDL) cholesterol measurementOrdered By: Tate Alcazar on 09-19-2024 VLDL Cholesterol 13 mg/dL 5-40 [facility] Vitamin B12 measurementOrder ed By: Tate Alcazar on 09-19-2024 Cobalamin (Vitamin B12) [Mass/Vol] 654 pg/mL Normal 211-911 [facility] Comment on above: Order Comment: RARE LYMPHOCYTES AND MACROPHAGES SEEN. Leslie Herron MD 01/21/2025 Performed By: #### M 100.2300, M100.2000, L350.1000, L501.1600, L801.5410, L501.0400, L200.0100 #### [facility] [address] [place], [address] Vitamin D,25 Hydroxyon 09-19 Vitamin D 25-OH 61.6 ng/mL Normal [facility] Comment on above: Order Comment: RARE LYMPHOCYTES AND MACROPHAGES SEEN. Leslie Herron MD 01/21/2025 Result Comment: Jesika min D 25(OH) Status Range Deficiency <20 ng/mL (50nmol/L) Insufficiency 20 - 30 ng/mL (50 - 75 nmol/L) Sufficiency 30 - 100 ng/mL (75 - 250 nmol/L) Toxicity >100 ng/mL (>250 nmol/L) Performed By: #### M 100.2300, M100.2000, L350.1000, L501.1600, L801.5410, L501.0400, L200.0100 #### [facility] [address] [place], [address] 12 Lead EKGon 08-25-2024 12 Lead EKG [facility] Cardiovascular Services [address] [place] [address] 12 Lead EKG 08/25/24 0848 MR#: [id number] Acct: [id number] Name: LAILA COKER Rep #: [id number] : 1950 73 From: Ayo Salazar MD Attending Dr: Dr. Chris Rocha MD Status: R EG CLI Ordering Dr: Chris Rocha MD Date: 08/25/24 Location: N Sex: M C Admitted: Test Reason : ROUTINE Blood Pressure : */* mmHG Vent. Rate : 59 BPM Atrial Rate : 59 BPM P-R Int : 202 ms QRS Dur : 110 ms QT Int : 438 ms P-R-T Axes : 36 -48 -22 degrees QTcB Int : 433 ms Sinus bradycardia with sinus arrhythmia Left anterior fascicular block Moderate voltage criteria for LVH, may be normal variant Nonspecific T wave abnormality Abnormal ECG Confirmed by MARIE KWAN, AYO ([id number]), communications editor FLORECITA JOAQUIN ([id number]) on 08/25/2024 2:12:55 PM Referred By: Chris Rocha Confirmed By: AYO SALAZAR MD 08/25/24 1412 Date Ayo Salazar MD CC: Dr. Tate Alcazar MD; Dr. Chris Rocha MD Signed Normal [facility] Re-Evaluation - PT (1)on Re-Evaluation - PT (1) [facility] Physical Therapy [facility] [address] [place] [address] [address] [place] [address] / REEVALUATION / MEDICARE RECERTIFICATION PHYSICAL THERAPY MR#: [id number] Acct: [id number] Name: LAILA COKER Rep #: [id number] : 1950 73 From: Chilo Marin DPT, OCS, CSCS Referring Dr.: Dr. Chris Rocha MD Status:REG RCR Insurance: MEDICARE PART A B ANTHEM Re-Evaluation Intro: Dr. Chris Rocha MD, It has been my pleasure to treat LAILA COKER over the last 13 visits for Peripheral vestibulopathy. Please see the progress note below for an update on the physical therapy plan of care! Subjective Subjective: Not improving. Balance still is up and down. Today feels normal, Sunday was a bad day maybe due to Sugar and will see doctor for that in a couple weeks. Trying to get the right amount. Doing gym ex himself 1x/week Objective Objective/Function: Great balance today and moving well with trasnfers and walking. foam stance with ec looks easy today. However, according to him, he may wake up tomorrow completley different. No spinning dizzyness lately just unsteadyness. Plan Plan Plan: Pt thinks doctor may want a comuterized biodex balance test adn will call regareding an order and call within 2 weeks if to return for that test. From a PT point of view, it would not change our recent treatment and results will be highly dependent on how he feels each day d/c to gyma dn home HEP unles spatient or doctor sends script for balance test by end of [id number] to check on this) Multiple comorbidities and up and down nature of his symptoms and balance performance have made treatment challenging and progress unremarkable. he will continue his gym and home ex however. Balance/Gait/Functio nal tests Balance/Special Test Scores Functional Gait Assessment Score: 27 % Disability: 10.0000 CATSIB Score (Max score 120 seconds): 120 Dizziness Score: 20 Goals Goals Goal 1:: 120 Romberg foam ec to aid in ankle coordination balance Goal Time Frame: 4-6 Weeks Goal Progress: Goal Met Goal 2:: I appropriate HEP for gym strength and wt shift and balance ex that patient can continue on his own. Goal Time Frame: 4-6 Weeks Goal Progress: Goal Met Goal 3:: Pt feel 50% steadier in getting aaround and 50% more active Goal Time Frame: 4-6 Weeks Goal Progress: Not Progressing Goal 4:: DHI score 10 or less Goal Time Frame: 4-6 Weeks Goal Progress: Progressing Anticipated Interventions Anticipated Interventions Patient/Client Instruction: Educate patient on: Condition and Plan of Care For the Purpose of:: To improve nutrient delivery to tissue, To improve muscle performance and motor function and To improve gait and locomotor functions Therapeutic Exercise to Include: Strength training and Balance training For the Purpose of:: To improve nutrient delivery to tissue, To improve muscle performance and motor function and To increase tolerance to activity/condition/p osition Re-Evaluation Ending Re-evaluation ending: Please do not hesitate to contact me at [phone] by phone or if you have questions or concerns regarding this new plan of care! Sincerely, Chilo Marin, DPT, OCS, CSCS 08/22/24 1671 CC: Dr. Tate Alcazar MD; Dr. Chris Rocha MD EBG Signed For Medicare only, by signing this I certify the plan of care. Physicians Signature Date Normal [facility] Neurology Visit Reporton Neurology Visit Report [facility] [address], [address] [place] [address] OFFICE VISIT Date of Service: 08/19/24 MR#: [id number] Acct: [id number] Name: LAILA COKER Rep #: [id number] : 1950 Provider: Dr. Chris hoffman MD Age/Sex: 73/M Location: [facility] [place]. Status: Signed with Addenda ADDENDUM by Dr. Chris Rocha MD on 08/20/24 at 1643 Addendum Addendum (08/20/2024): Add to 08/19/24 office note: The patient has depression. He was advised to increase his dose of venlafaxine ER 75 mg from 1 capsule daily to 2 capsules daily as had been recommended by his prescribing primary care provider. 08/20/241642 Date Chris Rocha MD cc: * Signed HPI [facility] Chief Complaint: Details: Interim History: Laila returns for follow-up visit. He has a history of diabetes mellitus, hyperlipidemia, and hypertension (no longer on medication for this condition). Around 2020, he began to exhibit slowing and shuffling of his gait. He had multiple falls. Since 2022, his voice became hypophonic. He denied having swallowing difficulty. He has had a tremor that is worsened with action. His tremor had worsened over time. The tremor has affected both hands and interferes with activities such as holding a cup and writing. He has had numbness and tingling in the feet since 2022. He has experienced occasional momentary sharp pain in the feet (this does not occur daily). He states that his legs feel heavy. He had a fall earlier in 2023. Physical therapy in 2022 was of some benefit for his lower extremity weakness. He has been experiencing neck pain since 2022 however he denies having any neck pain presently. He had chronic fluctuating low back pain. Chiropractic therapy for his back pain and neck pain was of benefit. He is not experiencing lower extremity radicular pain. He had occasional lightheadedness when he rises to a standing position. A trial carbidopa/levodopa 25/100 2 tablets TID appeared initially to result in some improvement of his gait however he subsequently ran out of of carbidopa/levodopa and did not notice any change in his symptoms. On reassessment at this office in May 2024, I was no longer convinced that he had Parkinson's disease. His tremor may be an essential tremor. He has had reduction of his tremor since initiation of primidone and presently is not experiencing any significant tremor. In 2022, he had some episodes of vertigo. A trial of meclizine was not of benefit. His vertigo resolved however since May 2024 he has been experiencing positional disequilibrium that has been occurring almost daily and this has caused some gait imbalance. He is currently receiving vestibular rehabilitation however he does not feel that this has been of benefit. He denied having any tinnitus. He has chronic hearing loss. His vertigo/disequilibri um is positional. He is not a exhibiting a shuffling gait. Meclizine was not of benefit. He has had some memory difficulty since 2022. He has had word finding difficulty. He has had some difficulty recalling upcoming appointments and other daily plans. He however remains independent in his activities of daily living. He does not have a tendency to forget conversations or to repeat conversations. He does not have any history of atypical antipsychotic medication use. He takes venlafaxine ER for depression. He denied having anxiety. He has had insomnia. His insomnia has diminished following initiation of tizanidine earlier in 2023. He does not feel well rested when he awakens in the morning. He does not snore at night. He commonly naps during the day. He has daytime hypersomnia and fatigue. His sleep study did not reveal sleep apnea however, he did exhibit periodic leg movements. He exhibited sensory loss in the feet. EMG/nerve conduction studies reveal a sensorimotor polyneuropathy. His laboratory evaluation for polyneuropathy revealed an abnormal serum free light chains and elevated serum glucose (he has diabetes mellitus). A subsequent serum protein electrophoresis, serum immunofixation and urine immunofixation did not reveal monoclonality. He has had elevated transaminases. He has a fatty liver. Mini-mental status exam score was 29/30 in September 2023. He is experiencing constipation. Docusate and MiraLAX were not of benefit. Linzess has been of benefit however, due to cost, was discontinued. His head MRI with attention to the IACs reveals diffuse cerebral atrophy and moderate bilateral periventricular and subcortical white matter chronic small vessel ischemic disease. Physical Exam: Neuro: The patient is awake and alert and responds appropriately; speech is fluent; no rigidity is noted in the wrist; no tremor is noted; gait is slightly wide-based and slightly unsteady; motor strength is 5/5 in the quadriceps bilaterally and foot dorsi (more content not included)... Normal [facility] Brain W/WO Contraston 2023 Brain W/WO Contrast [facility] Imaging Services [address] [place] [address] Brain W/WO Contrast MR#: [id number] Acct: [id number] Name: LAILA COKER Rep #: [id number] : 1950 M 73 From: Jose Vences MD PCP: Dr. Tate Alcazar MD Status: REG CL Study: Brain W/WO Contrast Date of Exam: 07/30/24 Exam# [id number] Ordering Dr: Chris Rocha MD [id number] STUDY: MRI BRAIN WITH AND WITHOUT CONTRAST (ATTENTION INTERNAL AUDITORY CANALS - I.A.C.''s) REASON FOR EXAM: Male, 73 years old. dysequilibruim TECHNIQUE: Standardized multiplanar fat and water weighted pulse sequences were obtained. IV 19 cc clariscan was administered for the contrast portion of the examination. COMPARISON: None. FINDINGS: Normal bilateral temporal bones. Normal bilateral internal auditory canals. There is no demonstrated intracanalicular or cisternal vestibular schwannoma (acoustic neuroma). There is no enhancement of the bilateral VIIth or VIIIth cranial nerves. Normal bilateral cochlea, vestibules and semicircular canals. There is moderate cerebral atrophy with widening of the extra-axial spaces and ventricular dilatation. There are multiple white matter hyperintensities, distributed throughout the deep white matter tracts of the cerebral hemispheres, consistent with moderate chronic white matter ischemic changes. There is no evidence for recent intracranial ischemia or other cause of cytotoxic edema on diffusion weighted imaging (DWI). Normal bilateral basal ganglia. Normal thalami. Normal flow voids within the major intracranial circulation suggesting patency by spin echo criteria. Normal venous enhancement. There is no enhancing intra-axial or extra-axial abnormality. There is no extra-axial fluid accumulation. Normal sella turcica, pituitary gland, infundibular stalk, optic chiasm and hypothalamus. Normal tectal plate and pineal gland. Normal midbrain, estefani and medulla. Normal cerebellum. Normal basal cisterns. There are bilateral ocular lens implants with otherwise normal intraorbital contents. Normal visualized paranasal sinuses. Normal calvarium and skull base. Normal visualized soft tissue structures. Normal visualized upper cervical spine. MRI/Brain W/WO Contrast IMPRESSION: Involutional changes of the brain, as described above. No MR evidence of vestibular schwannoma (acoustic neuroma). Electronically Signed: Jose Vences MD at 10:11 EST , CC: Dr. Tate Alcazar MD; Dr. Chris Rocha MD Patient Access Director: Signed Normal [facility] CBC W/Diff, Automatedon 11- Absolute Neut Normal 2.0-7.7 [facility] Comment on above: Result Comment: TIANA Owens PT Performed By: #### M 100.2300, M100.2000, L350.1000, L501.1600, L801.5410, L501.0400, L200.0100 #### [facility] [address] [place], [address] HCT Normal 40-54 [facility] Comment on above: Result Comment: WRON G PT Performed By: #### M 100.2300, M100.2000, L350.1000, L501.1600, L801.5410, L501.0400, L200.0100 #### [facility] [address] [place], [address] HGB Normal 13.0-16.5 [facility] Comment on above: Result Comment: WRON G PT Performed By: #### M 100.2300, M100.2000, L350.1000, L501.1600, L801.5410, L501.0400, L200.0100 #### [facility] [address] [place], [address] MCH Normal 27.0-32.0 [facility] Comment on above: Result Comment: WRON G PT Performed By: #### M 100.2300, M100.2000, L350.1000, L501.1600, L801.5410, L501.0400, L200.0100 #### [facility] [address] [place], [address] MCHC Normal 32-36 [facility] Comment on above: Result Comment: WRON G PT Performed By: #### M 100.2300, M100.2000, L350.1000, L501.1600, L801.5410, L501.0400, L200.0100 #### [facility] [address] [place], [address] MCV Normal 80-94 [facility] Comment on above: Result Comment: WRON G PT Performed By: #### M 100.2300, M100.2000, L350.1000, L501.1600, L801.5410, L501.0400, L200.0100 #### [facility] [address] [place], [address] NEUT% Normal 47-70 [facility] Comment on above: Result Comment: WRON G PT Performed By: #### M 100.2300, M100.2000, L350.1000, L501.1600, L801.5410, L501.0400, L200.0100 #### [facility] [address] [place], [address] PLT Normal 150-450 [facility] Comment on above: Result Comment: WRON G PT Performed By: #### M 100.2300, M100.2000, L350.1000, L501.1600, L801.5410, L501.0400, L200.0100 #### [facility] [address] [place], [address] RBC Normal 4.6-6.2 [facility] Comment on above: Result Comment: WRON G PT Performed By: #### M 100.2300, M100.1999, L350.1000, L501.1600, L801.5410, L501.0400, L200.0100 #### [facility] [address] [place], [address] RDW CV Normal 11.6-14.6 [facility] Comment on above: Result Comment: WRON G PT Performed By: #### M 100.2300, M100.2000, L350.1000, L501.1600, L801.5410, L501.0400, L200.0100 #### [facility] [address] [place], [address] RDW SD Normal 35.1-43.9 [facility] Comment on above: Result Comment: WRON G PT Performed By: #### M 100.2300, M100.2000, L350.1000, L501.1600, L801.5410, L501.0400, L200.0100 #### [facility] [address] [place], [address] WBC Normal 4.4-11.0 [facility] Comment on above: Result Comment: TIANA G PT Performed By: #### M 100.2300, M100.2000, L350.1000, L501.1600, L801.5410, L501.0400, L200.0100 #### [facility] [address] [place], [address] CREATININE FINGERSTICKon CREATININE WB < 1.0 Normal 0.70-1.30 [facility] Comment on above: Performed By: #### M 100.2300, M100.2000, L350.1000, L501.1600, L801.5410, L501.0400, L200.0100 #### [facility] [address] [place], [address] EGFR WB > 60.0000 Normal >60 [facility] Comment on above: Performed By: #### M 100.2300, M100.1999, L350.1000, L501.1600, L801.5410, L501.0400, L200.0100 #### [facility] [address] [place], [address] Comprehensive Metabolic Prof ilon 07-30-2024 ALB Normal 3.2-5.0 [facility] Comment on above: Result Comment: TIANA G PT Performed By: #### M 100.2300, M100.1999, L350.1000, L501.1600, L801.5410, L501.0400, L200.0100 #### [facility] [address] [place], [address] ALK P Normal 45-117 [facility] Comment on above: Result Comment: TIANA G PT Performed By: #### M 100.2300, M100.2000, L350.1000, L501.1600, L801.5410, L501.0400, L200.0100 #### [facility] [address] [place], [address] ALT Normal 16-61 [facility] Comment on above: Result Comment: WRON G PT Performed By: #### M 100.2300, M100.2000, L350.1000, L501.1600, L801.5410, L501.0400, L200.0100 #### [facility] [address] [place], [address] AST Normal 15-37 [facility] Comment on above: Result Comment: WRON G PT Performed By: #### M 100.2300, M100.2000, L350.1000, L501.1600, L801.5410, L501.0400, L200.0100 #### [facility] [address] [place], [address] BUN Normal 7-18 [facility] Comment on above: Result Comment: WRON G PT Performed By: #### M 100.2300, M100.2000, L350.1000, L501.1600, L801.5410, L501.0400, L200.0100 #### [facility] [address] [place], [address] BUN/CRE Normal 10-20 [facility] Comment on above: Result Comment: WRON G PT Performed By: #### M 100.2300, M100.2000, L350.1000, L501.1600, L801.5410, L501.0400, L200.0100 #### [facility] [address] [place], [address] CA,Total Normal 8.5-10.1 [facility] Comment on above: Result Comment: WRON G PT Performed By: #### M 100.2300, M100.2000, L350.1000, L501.1600, L801.5410, L501.0400, L200.0100 #### [facility] [address] [place], [address] CL Normal 98-107 [facility] Comment on above: Result Comment: CARENON G PT Performed By: #### M 100.2300, M100.2000, L350.1000, L501.1600, L801.5410, L501.0400, L200.0100 #### [facility] [address] [place], [address] CO2 Normal 21.0-32.0 [facility] Comment on above: Result Comment: CARENON G PT Performed By: #### M 100.2300, M100.2000, L350.1000, L501.1600, L801.5410, L501.0400, L200.0100 #### [facility] [address] [place], [address] CREAT,SERUM Normal 0.70-1.30 [facility] Comment on above: Result Comment: CARENON G PT Performed By: #### M 100.2300, M100.2000, L350.1000, L501.1600, L801.5410, L501.0400, L200.0100 #### [facility] [address] [place], [address] EST GFR Normal >60 [facility] Comment on above: Result Comment: CARENON G PT Performed By: #### M 100.2300, M100.2000, L350.1000, L501.1600, L801.5410, L501.0400, L200.0100 #### [facility] [address] [place], [address] EST GFR - AA Normal >60 [facility] Comment on above: Result Comment: WRON G PT Performed By: #### M 100.2300, M100.2000, L350.1000, L501.1600, L801.5410, L501.0400, L200.0100 #### [facility] [address] [place], [address] GAP Normal 5-15 [facility] Comment on above: Result Comment: WRON G PT Performed By: #### M 100.2300, M100.2000, L350.1000, L501.1600, L801.5410, L501.0400, L200.0100 #### [facility] [address] [place], [address] GLU Normal 74-106 [facility] Comment on above: Result Comment: WRON G PT Performed By: #### M 100.2300, M100.2000, L350.1000, L501.1600, L801.5410, L501.0400, L200.0100 #### [facility] [address] [place], [address] Potassium Normal 3.5-5.1 [facility] Comment on above: Result Comment: WRON G PT Performed By: #### M 100.2300, M100.1999, L350.1000, L501.1600, L801.5410, L501.0400, L200.0100 #### [facility] [address] [place], [address] T BILI Normal 0.20-1.00 [facility] Comment on above: Result Comment: WRON G PT Performed By: #### M 100.2300, M100.2000, L350.1000, L501.1600, L801.5410, L501.0400, L200.0100 #### [facility] [address] [place], [address] T PROT Normal 6.4-8.2 [facility] Comment on above: Result Comment: WRON G PT Performed By: #### M 100.2300, M100.2000, L350.1000, L501.1600, L801.5410, L501.0400, L200.0100 #### [facility] [address] [place], [address] Comprehensive Metabolic Profil Normal 136-145 [facility] Comment on above: Result Comment: TIANA Graciela PT Performed By: #### M 100.2300, M100.2000, L350.1000, L501.1600, L801.5410, L501.0400, L200.0100 #### [facility] [address] [place], [address] Lipid Profileon 07-30-2024 HDL Normal [facility] Comment on above: Result Comment: CARENON G PT The drugs N-Acetylcysteine and Metamizole may falsely depress this assay. Performed By: #### M 100.2300, M100.2000, L350.1000, L501.1600, L801.5410, L501.0400, L200.0100 #### [facility] [address] [place], [address] TRIG Normal [facility] Comment on above: Result Comment: TIANA G PT The drugs N-Acetylcysteine and Metamizole may falsely depress this assay. Performed By: #### M 100.2300, M100.2000, L350.1000, L501.1600, L801.5410, L501.0400, L200.0100 #### [facility] [address] [place], [address] CHOL Normal 200 [facility] Comment on above: Result Comment: TIANA G PT Performed By: #### M 100.2300, M100.2000, L350.1000, L501.1600, L801.5410, L501.0400, L200.0100 #### [facility] [address] [place], [address] LDL Normal 0-130 [facility] Comment on above: Result Comment: TIANA G PT Performed By: #### M 100.2300, M100.2000, L350.1000, L501.1600, L801.5410, L501.0400, L200.0100 #### [facility] [address] [place], [address] VLDL Normal 5-40 [facility] Comment on above: Result Comment: TIANA Owens PT Performed By: #### M 100.2300, M100.2000, L350.1000, L501.1600, L801.5410, L501.0400, L200.0100 #### [facility] [address] [place], [address] Thyroid Antibodieson 024 TG AB Normal [facility] Comment on above: Result Comment: TIANA Owens PT Performed By: #### M 100.2300, M100.2000, L350.1000, L501.1600, L801.5410, L501.0400, L200.0100 #### [facility] [address] [place], [address] THYR PEROX AB Normal [facility] [facility] Comment on above: Result Comment: TIANA Owens PT Performed By: #### M 100.2300, M100.2000, L350.1000, L501.1600, L801.5410, L501.0400, L200.0100 #### [facility] [address] [place], [address] Urine Drug Screen (VISTA)on 07-30-2024 DRUG CONFIRM Normal [facility] Comment on above: Order Comment: TOX Result Comment: TIANA Owens PT CONFIRMATORY TESTING FOR ALL POSITIVE URINE DRUG SCREEN RESULTS WILL ONLY BE SENT OUT UPON PHYSICIAN ORDER. VISTA Urine Drug Screen methods provide only preliminary analytical test results. A more specific alternate chemical method must be used in order to obtain a confirmed analytical result. Gas chromatography/mass spectrometery (GC/MS) is the preferred confirmatory method. Clinical consideration and professional judgement should be applied to any drug of abuse test result, particularly when preliminary positive results are used. URINE TCA TESTING MUST BE ORDERED SEPARATELY. USE TEST MNEMONIC: UTCA Performed By: #### M 100.2300, M100.2000, L350.1000, L501.1600, L801.5410, L501.0400, L200.0100 #### [facility] [address] [place], [address] AMPHETAMINES Normal <1000 ng/mL [facility] Comment on above: Order Comment: TOX Result Comment: WRON G PT Performed By: #### M 100.2300, M100.2000, L350.1000, L501.1600, L801.5410, L501.0400, L200.0100 #### [facility] [address] [place], [address] BARBITIURATES Normal < 200 ng/mL [facility] Comment on above: Order Comment: TOX Result Comment: WRON G PT Performed By: #### M 100.2300, M100.2000, L350.1000, L501.1600, L801.5410, L501.0400, L200.0100 #### [facility] [address] [place], [place], [facility] BENZODIAZIPINE Normal < 200 ng/mL [facility] Comment on above: Order Comment: TOX Result Comment: WRON G PT Performed By: #### M 100.2300, M100.2000, L350.1000, L501.1600, L801.5410, L501.0400, L200.0100 #### [facility] [address] [place], [place], [facility] COCAINE Normal < 300 ng/mL [facility] Comment on above: Order Comment: TOX Result Comment: WRON G PT Performed By: #### M 100.2300, M100.2000, L350.1000, L501.1600, L801.5410, L501.0400, L200.0100 #### [facility] [address] [place], [address] ECSTACY Normal < 500 ng/mL [facility] Comment on above: Order Comment: TOX Result Comment: WRON G PT Performed By: #### M 100.2300, M100.2000, L350.1000, L501.1600, L801.5410, L501.0400, L200.0100 #### [facility] [address] [place], [address] METHADONE Normal < 300 ng/mL [facility] Comment on above: Order Comment: TOX Result Comment: WRON G PT Performed By: #### M 100.2300, M100.2000, L350.1000, L501.1600, L801.5410, L501.0400, L200.0100 #### [facility] [address] [place], [address] OPIATES Normal < 300 ng/mL [facility] Comment on above: Order Comment: TOX Result Comment: WRON G PT Performed By: #### M 100.2300, M100.2000, L350.1000, L501.1600, L801.5410, L501.0400, L200.0100 #### [facility] [address] [place], [address] PCP Normal < 25 ng/mL [facility] Comment on above: Order Comment: TOX Result Comment: WRON G PT Performed By: #### M 100.2300, M100.2000, L350.1000, L501.1600, L801.5410, L501.0400, L200.0100 #### [facility] [address] [place], [address] THC Normal < 50 ng/mL [facility] Comment on above: Order Comment: TOX Result Comment: WRON G PT Performed By: #### M 100.2300, M100.2000, L350.1000, L501.1600, L801.5410, L501.0400, L200.0100 #### [facility] [address] [place], [address] VISTA UDS PH Normal [facility] Comment on above: Order Comment: TOX Result Comment: WRON G PT Performed By: #### M 100.2300, M100.2000, L350.1000, L501.1600, L801.5410, L501.0400, L200.0100 #### [facility] [address] [place], [address] Basophil percentageOrdered B y: Chris Rocha on 10-03-2023 Bilirubin [Mass/Vol] 0.60 mg/dL 0.20-1.00 [facility] Comment on above: For patients on eltr ombopag therapy, use of Dimension Dupont TBIL is not recommended. Chloride [Moles/Vol] 103 mmol/L 98-107 [facility] Glucose [Mass/Vol] 176 mg/dL 74-106 [facility] Comment on above: Fasting Glucose resu lt greater than or equal to 126 mg/dL suggests DIABETES MELLITUS per A.D.A. criteria. Hemoglobin (Bld) [Mass/Vol] 15.0 g/dL 13.0-16.5 [facility] Potassium [Moles/Vol] 4.0 mmol/L 3.5-5.1 [facility] Protein [Mass/Vol] 8.2 g/dL 6.4-8.2 [facility] Sodium [Moles/Vol] 136 mmol/L 136-145 [facility] WBC (Bld) [#/Vol] 5.5 10*3/uL 4.4-11.0 [facility] Determination of erythrocyte mean corpuscular volume (MCV)Ordered By: Chris Rocha on 10-03-2023 MCV (RBC) [Entitic vol] 94.3 fL 80-94 [facility] Erythrocyte distribution wid th ratioOrdered By: Chrisbeatriz Rocha on 10-03-2023 Erythrocyte distribution width (RBC) [Ratio] 12.1 % 11.6-14.6 [facility] Erythrocyte distribution wid th standard deviationOrdered By: Chris Rocha on 10-03-2023 Erythrocyte distribution width (RBC) [Entitic vol] 42.3 fL 35.1-43.9 [facility] Hematocrit Auto (Bld) [Volum e fraction]Ordered By: Chris Rocha on 10-03-2023 Hematocrit (Bld) [Volume fraction] 44.6 % 40-54 [facility] - Chemistry and C hemistry - challengeOrdered By: Chris Rocha on 10-03-2023 Albumin/Globulin [Mass ratio] 1.0 {ratio} 0.9-2.4 [facility] ALP [Catalytic activity/Vol] 81 U/L 45-117 [facility] ALT [Catalytic activity/Vol] 98 U/L 16-61 [facility] CO2 [Moles/Vol] 26.0 mmol/L 21.0-32.0 [facility] Cobalamin (Vitamin B12) [Mass/Vol] 595 pg/mL 211-911 [facility] Globulin (S) [Mass/Vol] 4.2 g/dL 2.2-4.2 [facility] Urea nitrogen/Creatinine [Mass ratio] 17.6 mg/mg 10-20 [facility] - Hematology and Cell countsOrdered By: Chris Rocha on 10-03-2023 MCH (RBC) [Entitic mass] 31.7 pg 27.0-32.0 [facility] MCHC (RBC) [Mass/Vol] 33.6 g/dL 32-36 [facility] Platelets (Bld) [#/Vol] 253 10*3/uL 150-450 [facility] No Panel InformationOrdered By: Chris Rocha on 10-03-2023 Estimated GFR (MDRD) Amer 92 mL/min >60 [facility] Comment on above: GFR Calc Estimated GFR (MDRD) Non-Af Amer 76 mL/min >60 [facility] Comment on above: Non- GFR Calc Folate 19.80 ng/mL 3.1-55.4 [facility] Comment on above: Slight Hemolysis, Re sult may be falsely increased. Free Lambda Light Chains, Quant 17.8 mg/L 5.7-26.3 [facility] Platelet mean volume Nelson-Ec ker (Bld) [Entitic vol]Ordered By: Chris Rocha on 10-03-2023 Platelet mean volume (Bld) [Entitic vol] 10.2 fL 6.2-12.0 [facility] RBC Auto (Bld) [#/Vol]Ordere d By: Chris Rocha on 10-03-2023 RBC (Bld) [#/Vol] 4.73 10*6/uL 4.6-6.2 [facility] Serum immunoglobulin kappa l ight chains/immunoglobulin lambda light chains mass ratioOrdered By: Chris Rocha on 10-03-2023 Immunoglobulin light chains.kappa/Immunoglobu chinmay light chains.lambda (S) [Mass ratio] 1.82 0.26-1.65 [facility] Serum or plasma calcium chris urement (mass/volume)Ordered By: Chris Rocha on 10-03-2023 Calcium [Mass/Vol] 9.1 mg/dL 8.5-10.1 [facility] Serum or plasma creatinine m easurement (mass/volume)Ordered By: Chris Rocha on 10-03-2023 Creatinine [Mass/Vol] 1.02 mg/dL 0.70-1.30 [facility] Comment on above: The validity of the calculated GFR & GFRAA in patients over 70 years has not been determined. Clinical correlation is essential. Serum or plasma immunoglobul in kappa light chains measurement (mass/volume)Ordered By: Chris Rocha on 10-03-2023 Immunoglobulin light chains.kappa [Mass/Vol] 32.4 mg/L 3.3-19.4 [facility] Serum or plasma thiamine odette surement (mass/volume)Ordered By: Chris Rocha on 10-03-2023 Thiamine [Mass/Vol] 133.0 nmol/L 66.5-200.0 [facility] Comment on above: Performed at: - [address] [id number] Director: Thom Greenberg PhD, Phone: [phone] at: - [facility] [id number] Director: Rafi Gaming MD, Phone: [phone] Serum or plasma thyroid stim ulating hormone (TSH) measurement (units/volume)Ordered By: Chris Rocha on 10-03-2023 TSH Qn 2.12 uIU/mL 0.358-3.74 [facility] Serum or plasma urea nitroge n measurement (mass/volume)Ordered By: Chris Rocha on 10-03-2023 Urea nitrogen [Mass/Vol] 18 mg/dL 7-18 [facility] Thin prep Papanicolaou smear with manual screeningOrdered By: Chris Rocha on 10-03-2023 Thin prep Papanicolaou smear with manual screening 4.0 g/dL 3.2-5.0 [facility] Thin prep Papanicolaou smear with manual screening 119 U/L 15-37 [facility] Thin prep Papanicolaou smear with manual screening 7 5-15 [facility] Basophil percentageOrdered B y: Nelson Alcazar on 07-18-2023 Creatinine [Mass/Vol] 1.3 mg/dL 0.70-1.30 [facility] - Chemistry and C hemistry - challengeOrdered By: Nelson Alcazar on 07-18-2023 GFR/1.73 sq M.predicted among non-blacks MDRD (S/P/Bld) [Vol rate/Area] 57.0000 mL/min/{1.73_m2} >60 [facility] Culture, urineOrdered By: Wendy Alcazar on 04-30-2023 Bacteria identified Cx Nom (U) Positive [facility] Bacteria identified Cx Nom (U) Positive [facility] Basophil percentageOrdered B y: Nelson Alcazar on 04-17-2023 Chloride [Moles/Vol] 103 mmol/L 98-107 [facility] Cholesterol [Mass/Vol] 144 mg/dL <200 [facility] Comment on above: <200 mg/dL Desirable 200-240 mg/dL Borderline >240 mg/dL High Risk Glucose [Mass/Vol] 165 mg/dL 74-106 [facility] Comment on above: Fasting Glucose resu lt greater than or equal to 126 mg/dL suggests DIABETES MELLITUS per A.D.A. criteria. Potassium [Moles/Vol] 4.2 mmol/L 3.5-5.1 [facility] Sodium [Moles/Vol] 134 mmol/L 136-145 [facility] Triglyceride [Mass/Vol] 97 mg/dL <199 [facility] Comment on above: The drugs N-Acetylcy steine and Metamizole may falsely depress this assay.Serum Triglycerides Reference Interval Normal <150 mg/dL Borderline high 150 - 199 mg/dL High 200 - 499 mg/dL Very High > or = 500 mg/dL WBC (Bld) [#/Vol] 5.9 10*3/uL 4.4-11.0 [facility] Blood erythrocytes count (nu mber/volume)Ordered By: Nelson Alcazar on 04-17-2023 RBC (Bld) [#/Vol] 5.11 10*6/uL 4.6-6.2 [facility] Blood hemoglobin measurement (mass/volume)Ordered By: Nelson Alcazar on 04-17-2023 Hemoglobin (Bld) [Mass/Vol] 16.0 g/dL 13.0-16.5 [facility] Blood platelet mean volumeOr dered By: Nelson Alcazar on 04-17-2023 Platelet mean volume (Bld) [Entitic vol] 10.2 fL 6.2-12.0 [facility] Determination of erythrocyte mean corpuscular volume (MCV)Ordered By: Nelson Alcazar on 04-17-2023 MCV (RBC) [Entitic vol] 94.1 fL 80-94 [facility] Hematocrit Auto (Bld) [Volum e fraction]Ordered By: Nelson Alcazar on 04-17-2023 Hematocrit (Bld) [Volume fraction] 48.1 % 40-54 [facility] Iron measurement (mass/mass) Ordered By: Nelson Alcazar on 04-17-2023 Iron (Unsp spec) [Mass/Mass] 101 ug/dL 65-175 [facility] - Chemistry and C hemistry - challengeOrdered By: Nelson Alcazar on 04-17-2023 CO2 [Moles/Vol] 24.0 mmol/L 21.0-32.0 [facility] Urea nitrogen/Creatinine [Mass ratio] 17.6 mg/mg 10-20 [facility] - Hematology and Cell countsOrdered By: Nelson Alcazar on 04-17-2023 Erythrocyte distribution width (RBC) [Entitic vol] 43.4 fL 35.1-43.9 [facility] Erythrocyte distribution width (RBC) [Ratio] 12.5 % 11.6-14.6 [facility] MCH (RBC) [Entitic mass] 31.3 pg 27.0-32.0 [facility] MCHC Auto (RBC) [Mass/Vol]Or dered By: Nelson Alcazar on 04-17-2023 MCHC (RBC) [Mass/Vol] 33.3 g/dL 32-36 [facility] No Panel InformationOrdered By: Nelson Alcazar on 04-17-2023 C-Peptide 3.4 ng/mL 1.1-4.4 [facility] Comment on above: C-Peptide reference interval is for fasting patients.Performed at: [facility] [id number] Director: Thom Greenberg PhD, Phone: [phone] Estimated GFR (MDRD) Amer 77 mL/min >60 [facility] Comment on above: GFR Calc Estimated GFR (MDRD) Non-Af Amer 64 mL/min >60 [facility] Comment on above: Non- GFR Calc Insulin Level 8.4 mU/L 2.6-37.6 [facility] Thyroid Stimulating Hormone (TSH) 1.16 uIU/mL 0.358-3.74 [facility] Platelets bldOrdered By: Laurent Alcazar on 04-17-2023 Platelets (Bld) [#/Vol] 259 10*3/uL 150-450 [facility] Serum or plasma calcium chris urement (mass/volume)Ordered By: Nelson Alcazar on 04-17-2023 Calcium [Mass/Vol] 9.1 mg/dL 8.5-10.1 [facility] Serum or plasma cholesterol in HDL measurement (mass/volume)Ordered By: Nelson Alcazar on 04-17-2023 Cholesterol in HDL [Mass/Vol] 47 mg/dL >40 [facility] Comment on above: The drugs N-Acetylcy steine and Metamizole may falsely depress this assay. Reference Range HDL <40 mg/dL Low HDL Cholesterol HDL >or= 60 mg/dL High HDL Cholesterol Serum or plasma cholesterol in VLDL measurement (mass/volume)Ordered By: Nelson Alcazar on 04-17-2023 Cholesterol in VLDL [Mass/Vol] 19 mg/dL 5-40 [facility] Serum or plasma creatinine m easurement (mass/volume)Ordered By: Nelson Alcazar on 04-17-2023 Creatinine [Mass/Vol] 1.19 mg/dL 0.70-1.30 [facility] Comment on above: The validity of the calculated GFR & GFRAA in patients over 70 years has not been determined. Clinical correlation is essential. Serum or plasma low density lipoprotein (LDL) cholesterol measurement (mass/volume)Ordered By: Nelson Alcazar on 04-17-2023 Cholesterol in LDL [Mass/Vol] 78 mg/dL 0-130 [facility] Serum or plasma urea nitroge n measurement (mass/volume)Ordered By: Nelson Alcazar on 04-17-2023 Urea nitrogen [Mass/Vol] 21 mg/dL 7-18 [facility] Thin prep Papanicolaou smear with manual screeningOrdered By: Nelson Alcazar on 04-17-2023 Thin prep Papanicolaou smear with manual screening 7 5-15 [facility] Basophil percentageOrdered B y: Dr. Alcazar on 10-09-2022 Bilirubin [Mass/Vol] 0.70 mg/dL 0.20-1.00 [facility] Comment on above: For patients on eltr ombopag therapy, use of Dimension Dupont TBIL is not recommended. Chloride [Moles/Vol] 106 mmol/L 98-107 [facility] Cholesterol [Mass/Vol] 156 mg/dL <200 [facility] Comment on above: <200 mg/dL Desirable 200-240 mg/dL Borderline >240 mg/dL High Risk Glucose [Mass/Vol] 158 mg/dL 74-106 [facility] Comment on above: Fasting Glucose resu lt greater than or equal to 126 mg/dL suggests DIABETES MELLITUS per A.D.A. criteria. Potassium [Moles/Vol] 4.4 mmol/L 3.5-5.1 [facility] Protein [Mass/Vol] 7.6 g/dL 6.4-8.2 [facility] Sodium [Moles/Vol] 140 mmol/L 136-145 [facility] Triglyceride [Mass/Vol] 80 mg/dL <199 [facility] Comment on above: The drugs N-Acetylcy steine and Metamizole may falsely depress this assay.Serum Triglycerides Reference Interval Normal <150 mg/dL Borderline high 150 - 199 mg/dL High 200 - 499 mg/dL Very High > or = 500 mg/dL WBC (Bld) [#/Vol] 10.2 10*3/uL 4.4-11.0 [facility] Blood erythrocytes count (nu mber/volume)Ordered By: Dr. Alcazar on 10-09-2022 RBC (Bld) [#/Vol] 4.99 10*6/uL 4.6-6.2 [facility] Blood hemoglobin measurement (mass/volume)Ordered By: Dr. Alcazar on 10-09-2022 Hemoglobin (Bld) [Mass/Vol] 15.6 g/dL 13.0-16.5 [facility] Blood platelet mean volumeOr dered By: Dr. Alcazar on 10-09-2022 Platelet mean volume (Bld) [Entitic vol] 10.2 fL 6.2-12.0 [facility] Determination of erythrocyte mean corpuscular volume (MCV)Ordered By: Dr. Alcazar on 10-09-2022 MCV (RBC) [Entitic vol] 93.0 fL 80-94 [facility] Erythrocyte sedimentation ra teOrdered By: Dr. Alcazar on 10-09-2022 ESR (Bld) [Velocity] 16 mm/h 0-20 [facility] Hematocrit Auto (Bld) [Volum e fraction]Ordered By: Dr. Alcazar on 10-09-2022 Hematocrit (Bld) [Volume fraction] 46.4 % 40-54 [facility] - Chemistry and C hemistry - challengeOrdered By: Dr. Alcazar on 10-09-2022 ALP [Catalytic activity/Vol] 80 U/L 45-117 [facility] ALT [Catalytic activity/Vol] 99 U/L 16-61 [facility] CO2 [Moles/Vol] 25.0 mmol/L 21.0-32.0 [facility] Cobalamin (Vitamin B12) [Mass/Vol] 670 pg/mL 211-911 [facility] Globulin (S) [Mass/Vol] 3.8 g/dL 2.2-4.2 [facility] Urea nitrogen/Creatinine [Mass ratio] 20.6 mg/mg 10-20 [facility] - Hematology and Cell countsOrdered By: Dr. Alcazar on 10-09-2022 Erythrocyte distribution width (RBC) [Entitic vol] 42.6 fL 35.1-43.9 [facility] Erythrocyte distribution width (RBC) [Ratio] 12.5 % 11.6-14.6 [facility] MCH (RBC) [Entitic mass] 31.3 pg 27.0-32.0 [facility] MCHC Auto (RBC) [Mass/Vol]Or dered By: Dr. Alcazar on 10-09-2022 MCHC (RBC) [Mass/Vol] 33.6 g/dL 32-36 [facility] No Panel InformationOrdered By: Dr. Alcazar on 10-09-2022 Estimated GFR (MDRD) Amer 88 mL/min >60 [facility] Comment on above: GFR Calc Estimated GFR (MDRD) Non-Af Amer 72 mL/min >60 [facility] Comment on above: Non- GFR Calc Thyroid Stimulating Hormone (TSH) 1.51 uIU/mL 0.358-3.74 [facility] Vitamin D 25-Hydroxy 63.5 ng/mL [facility] Comment on above: Vitamin D 25(OH) Sta tus Range Deficiency <20 ng/mL (50nmol/L) Insufficiency 20 - 30 ng/mL (50 - 75 nmol/L) Sufficiency 30 - 100 ng/mL (75 - 250 nmol/L) Toxicity >100 ng/mL (>250 nmol/L) Platelets bldOrdered By: Dr. Alcazar on 10-09-2022 Platelets (Bld) [#/Vol] 261 10*3/uL 150-450 [facility] Serum or plasma albumin chris urement (mass/volume)Ordered By: Dr. Alcazar on 10-09-2022 Albumin [Mass/Vol] 3.8 g/dL 3.2-5.0 [facility] Serum or plasma albumin/glob ulin mass ratioOrdered By: Dr. Alcazar on 10-09-2022 Albumin/Globulin [Mass ratio] 1.0 {ratio} 0.9-2.4 [facility] Serum or plasma calcium chris urement (mass/volume)Ordered By: Dr. Alcazar on 10-09-2022 Calcium [Mass/Vol] 9.2 mg/dL 8.5-10.1 [facility] Serum or plasma cholesterol in HDL measurement (mass/volume)Ordered By: Dr. Alcazar on 10-09-2022 Cholesterol in HDL [Mass/Vol] 48 mg/dL >40 [facility] Comment on above: The drugs N-Acetylcy steine and Metamizole may falsely depress this assay. Reference Range HDL <40 mg/dL Low HDL Cholesterol HDL >or= 60 mg/dL High HDL Cholesterol Serum or plasma cholesterol in VLDL measurement (mass/volume)Ordered By: Dr. Alcazar on 10-09-2022 Cholesterol in VLDL [Mass/Vol] 16 mg/dL 5-40 [facility] Serum or plasma creatinine m easurement (mass/volume)Ordered By: Dr. Alcazar on 10-09-2022 Creatinine [Mass/Vol] 1.07 mg/dL 0.70-1.30 [facility] Comment on above: The validity of the calculated GFR & GFRAA in patients over 70 years has not been determined. Clinical correlation is essential. Serum or plasma low density lipoprotein (LDL) cholesterol measurement (mass/volume)Ordered By: Dr. Alcazar on 10-09-2022 Cholesterol in LDL [Mass/Vol] 92 mg/dL 0-130 [facility] Serum or plasma urea nitroge n measurement (mass/volume)Ordered By: Dr. Alcazar on 10-09-2022 Urea nitrogen [Mass/Vol] 22 mg/dL 7-18 [facility] Thin prep Papanicolaou smear with manual screeningOrdered By: Dr. Alcazar on 10-09-2022 Thin prep Papanicolaou smear with manual screening 60 U/L 15-37 [facility] Thin prep Papanicolaou smear with manual screening 9 5-15 [facility] Basophil percentageon 2021 Bilirubin [Mass/Vol] 0.50 mg/dL 0.20-1.00 [facility] Work Phone: Comment on above: For patients on eltr ombopag therapy, use of Dimension Dupont TBIL is not recommended. Chloride [Moles/Vol] 107 mmol/L 98-107 [facility] Work Phone: Cholesterol [Mass/Vol] 139 mg/dL <200 [facility] Work Phone: Comment on above: <200 mg/dL Desirable 200-240 mg/dL Borderline >240 mg/dL High Risk Glucose [Mass/Vol] 121 mg/dL 74-106 [facility] Work Phone: Comment on above: Fasting Glucose resu lt from 100 to 125 mg/dL suggests IMPAIRED HOMEOSTASIS per A.D.A. criteria. Potassium [Moles/Vol] 4.1 mmol/L 3.5-5.1 [facility] Work Phone: Protein [Mass/Vol] 7.7 g/dL 6.4-8.2 [facility] Work Phone: Sodium [Moles/Vol] 138 mmol/L 136-145 [facility] Work Phone: Testosterone [Mass/Vol] 477.80 ng/dL [facility] Work Phone: Comment on above: CENTRAL 90% REFERENC E RANGES MALE AGE <50 197.44 - 669.58 ng/dL MALE AGE > or = 50 187.72 - 684.19 ng/dL FEMALE AGE <50 8.38 - 35.01 ng/dL FEMALE AGE > or = 50 <7.00 - 35.92 ng/dL Effective as of 04/12/21 Triglyceride [Mass/Vol] 51 mg/dL <199 [facility] Work Phone: Comment on above: The drugs N-Acetylcy steine and Metamizole may falsely depress this assay.Serum Triglycerides Reference Interval Normal <150 mg/dL Borderline high 150 - 199 mg/dL High 200 - 499 mg/dL Very High > or = 500 mg/dL Laboratory - Chemistry and C hemistry - challengeon 04-04-2022 ALP [Catalytic activity/Vol] 61 U/L 45-117 [facility] Work Phone: ALT [Catalytic activity/Vol] 100 U/L 16-61 [facility] Work Phone: [phone] Amylase [Catalytic activity/Vol] 80 U/L 15-85 [facility] Work Phone: [phone] CO2 [Moles/Vol] 24.0 mmol/L 21.0-32.0 [facility] Work Phone: [phone] Globulin (S) [Mass/Vol] 3.9 g/dL 2.2-4.2 [facility] Work Phone: [phone] Urea nitrogen/Creatinine [Mass ratio] 20.2 mg/mg 10-20 [facility] Work Phone: No Panel Informationon 04-04 Estimated GFR (MDRD) Amer 91 mL/min >60 [facility] Work Phone: [phone] Comment on above: GFR Calc Estimated GFR (MDRD) Non-Af Amer 75 mL/min >60 [facility] Work Phone: [phone] Comment on above: Non- GFR Calc Hepatitis C Antibody Non-Reactive Nonreactive [facility] Work Phone: [phone] Comment on above: Non Reactive: < 0.8 Equivocal: >/= 0.8 to < 1.0 Reactive: >/= 1.0The CDC recommends that a reactive/equivocal HCV antibody result be followed up by the HCV Nucleic Acid Amplificationtest (021571) Prostate Specific Antigen Screen 2.20 ng/mL 0.00-4.00 [facility] Work Phone: Comment on above: This test was perfor med using the TPSA assay method for theAtrica[employer]wingo chemistry system. Values obtained with differentassay methods cannot be used interchangably.When changing PSA assays in the course of monitoring apatient, additional sequential testing should be carriedout to confirm baseline values. Thyroid Stimulating Hormone (TSH) 1.36 uIU/mL 0.358-3.74 [facility] Work Phone: [phone] Serum hepatitis B virus surf dex antibody IgG detectionon 04-04-2022 HBV surface IgG Ql (S) Reactive [facility] Work Phone: [phone] Comment on above: Non Reactive: Incons istent with immunity less than <10 mIU/mL Reactive: Consistent with immunity greater than or equal to 10 mIU/mL Serum or plasma albumin chris urement (mass/volume)on 04-04-2022 Albumin [Mass/Vol] 3.8 g/dL 3.2-5.0 [facility] Work Phone: Serum or plasma albumin/glob ulin mass ratioon 04-04-2022 Albumin/Globulin [Mass ratio] 1.0 {ratio} 0.9-2.4 [facility] Work Phone: Serum or plasma calcium chris urement (mass/volume)on 04-04-2022 Calcium [Mass/Vol] 9.1 mg/dL 8.5-10.1 [facility] Work Phone: Serum or plasma cholesterol in HDL measurement (mass/volume)on 04-04-2022 Cholesterol in HDL [Mass/Vol] 48 mg/dL >40 [facility] Work Phone: Comment on above: The drugs N-Acetylcy steine and Metamizole may falsely depress this assay. Reference Range HDL <40 mg/dL Low HDL Cholesterol HDL >or= 60 mg/dL High HDL Cholesterol Serum or plasma cholesterol in VLDL measurement (mass/volume)on 04-04-2022 Cholesterol in VLDL [Mass/Vol] 10 mg/dL 5-40 [facility] Work Phone: Serum or plasma creatinine m easurement (mass/volume)on 04-04-2022 Creatinine [Mass/Vol] 1.04 mg/dL 0.70-1.30 [facility] Work Phone: Comment on above: The validity of the calculated GFR & GFRAA in patients over 70 years has not been determined. Clinical correlation is essential. Serum or plasma low density lipoprotein (LDL) cholesterol measurement (mass/volume)on 04-04-2022 Cholesterol in LDL [Mass/Vol] 81 mg/dL 0-130 [facility] Work Phone: Serum or plasma urea nitroge n measurement (mass/volume)on 04-04-2022 Urea nitrogen [Mass/Vol] 21 mg/dL 7-18 [facility] Work Phone: Thin prep Papanicolaou smear with manual screeningon 04-04-2022 Thin prep Papanicolaou smear with manual screening 54 U/L 15-37 [facility] Work Phone: Thin prep Papanicolaou smear with manual screening 7 5-15 [facility] Work Phone: Vital Signs Date Time Vital Sign Value Performing Clinician Faci lity 04-30-2025 08:22-0400 Body height 177.[address] Tate Alcazar MD Work Phone: [facility] 04-30-2025 08:22-0400 Body mass index (BMI) [Ratio] 29.9 kg/m2 Dr. Tate Alcazar MD Work Phone: [facility] 04-30-2025 08:22-0400 Body temperature 97.8 [degF] Dr. Tate Alcazar MD Work Phone: [facility] 04-30-2025 08:22-0400 Body weight 94.[address] Tate Alcazar MD Work Phone: [facility] 04-30-2025 08:22-0400 Diastolic blood pressure 83 mm[Hg] Dr. Tate Alcazar MD Work Phone: [facility] 04-30-2025 08:22-0400 Heart rate 78 /min Dr. Tate Alcazar MD Work Phone: [facility] 04-30-2025 08:22-0400 Respiratory rate 15 /min Dr. Tate Alcazar MD Work Phone: [facility] 04-30-2025 08:22-0400 SaO2% (BldA) [Mass fraction] 97 % Dr. Tate Alcazar MD Work Phone: [facility] 04-30-2025 08:22-0400 Systolic blood pressure 172 mm[Hg] Dr. Tate Alcazar MD Work Phone: [facility] 01-21-2025 09:04-0400 Body temperature 98.2 [degF] Dr. Tate Alcazar MD Work Phone: [facility] 01-21-2025 09:04-0400 Body weight 95.[address] Tate Alcazar MD Work Phone: [facility] 01-21-2025 09:04-0400 Diastolic blood pressure 80 mm[Hg] Dr. Tate Alcazar MD Work Phone: [facility] 01-21-2025 09:04-0400 Heart rate 63 /min Dr. Tate Alcazar MD Work Phone: [facility] 01-21-2025 09:04-0400 Respiratory rate 17 /min Dr. Tate Alcazar MD Work Phone: [facility] 01-21-2025 09:04-0400 SaO2% (BldA) [Mass fraction] 98 % Dr. Tate Alcazar MD Work Phone: [facility] 01-21-2025 09:04-0400 Systolic blood pressure 146 mm[Hg] Dr. Tate Alcazar MD Work Phone: [facility] 01-20-2025 14:53-0400 Body temperature 98 [degF] Dr. Tate Alcazar MD Work Phone: [facility] 01-20-2025 14:53-0400 Diastolic blood pressure 84 mm[Hg] Dr. Tate Alcazar MD Work Phone: [facility] 01-20-2025 14:53-0400 Heart rate 86 /min Dr. Tate Alcazar MD Work Phone: [facility] 01-20-2025 14:53-0400 Respiratory rate 15 /min Dr. Tate Alcazar MD Work Phone: [facility] 01-20-2025 14:53-0400 SaO2% (BldA) [Mass fraction] 96 % Dr. Tate Alcazar MD Work Phone: [facility] 01-20-2025 14:53-0400 Systolic blood pressure 166 mm[Hg] Dr. Tate Alcazar MD Work Phone: [facility] 01-20-2025 14:35-0400 Diastolic blood pressure 76 mm[Hg] Dr. Tate Alcazar MD Work Phone: 8(182)982-224882 [place] [address] 01-20-2025 14:35-0400 Heart rate 63 /min Dr. Tate Alcazar MD Work Phone: 0(885)184-277882 [place] [address] 01-20-2025 14:35-0400 Respiratory rate 16 /min Dr. Tate Alcazar MD Work Phone: 5(863)267-586282 [place] [address] 01-20-2025 14:35-0400 SaO2% (BldA) [Mass fraction] 99 % Dr. Tate Alcazar MD Work Phone: 6(250)554-152882 [place] [address] 01-20-2025 14:35-0400 Systolic blood pressure 174 mm[Hg] Dr. Tate Alcazar MD Work Phone: 1(569)844-802182 [place] [address] 01-20-2025 12:03-0400 Body height 177.[address] Tate Alcazar MD Work Phone: 1(788)253-918082 [place] [address] 01-20-2025 12:03-0400 Body mass index (BMI) [Ratio] 30.1 kg/m2 Dr. Tate Alcazar MD Work Phone: 2(340)305-865282 [place] [address] 01-20-2025 12:03-0400 Body weight 95.[address] Tate Alcazar MD Work Phone: 6(493)604-343782 [place] [address] 01-20-2025 08:24-0400 Body mass index (BMI) [Ratio] 30.1 kg/m2 Dr. Tate Alcazar MD Work Phone: 9(693)163-060682 [place] [address] 01-20-2025 08:24-0400 Body temperature 97.8 [degF] Dr. Tate Alcazar MD Work Phone: 2(738)772-727682 [place] [address] 01-20-2025 08:24-0400 Body weight 95.[address] Tate Alcazar MD Work Phone: 8(440)661-843960 [place] [address] 01-20-2025 08:24-0400 Diastolic blood pressure 68 mm[Hg] Dr. Tate Alcazar MD Work Phone: [facility] 01-20-2025 08:24-0400 Heart rate 64 /min Dr. Tate Alcazar MD Work Phone: [facility] 01-20-2025 08:24-0400 Respiratory rate 16 /min Dr. Tate Alcazra MD Work Phone: [facility] 01-20-2025 08:24-0400 SaO2% (BldA) [Mass fraction] 96 % Dr. Tate Alczaar MD Work Phone: 0(644)011-661360 [place] [address] 01-20-2025 08:24-0400 Systolic blood pressure 162 mm[Hg] Dr. Tate Alcazar MD Work Phone: 0(395)332-027382 [place] [address] 12-25-2024 10:55-0400 Body mass index (BMI) [Ratio] 29.2 kg/m2 Dr. Tate Alcazar MD Work Phone: 8(875)695-701760 [place] [address] 12-25-2024 10:55-0400 Body temperature 97.8 [degF] Dr. Tate Alcazar MD Work Phone: 3(151)418-334160 [place] [address] 12-25-2024 10:55-0400 Body weight 92.[address] Tate Alcazar MD Work Phone: [facility] 12-25-2024 10:55-0400 Diastolic blood pressure 82 mm[Hg] Dr. Tate Alcazar MD Work Phone: [facility] 12-25-2024 10:55-0400 Heart rate 72 /min Dr. Tate Alcazar MD Work Phone: [facility] 12-25-2024 10:55-0400 Respiratory rate 16 /min Dr. Tate Alcazar MD Work Phone: [facility] 12-25-2024 10:55-0400 SaO2% (BldA) [Mass fraction] 96 % Dr. Tate Alcazar MD Work Phone: [facility] 12-25-2024 10:55-0400 Systolic blood pressure 146 mm[Hg] Dr. Tate Alcazar MD Work Phone: [facility] 10-30-2024 09:44-0500 Body height 177.[address] Tate Alcazar MD Work Phone: 6(821)911-245682 [place] [address] 10-30-2024 09:44-0500 Body temperature 98.2 [degF] Dr. Tate Alcazar MD Work Phone: 9(059)459-718482 [place] [address] 10-30-2024 09:44-0500 Diastolic blood pressure 84 mm[Hg] Dr. Tate Alcazar MD Work Phone: 8(311)572-274582 [place] [address] 10-30-2024 09:44-0500 Heart rate 69 /min Dr. Tate Alcazar MD Work Phone: 6(474)204-433238 [address] 10-30-2024 09:44-0500 Respiratory rate 15 /min Dr. Tate Alcazar MD Work Phone: 1(144)036-642738 [address] 10-30-2024 09:44-0500 SaO2% (BldA) [Mass fraction] 96 % Dr. Tate Alcazar MD Work Phone: 4(096)488-943638 [address] 10-30-2024 09:44-0500 Systolic blood pressure 140 mm[Hg] Dr. Tate Alcazar MD Work Phone: 6(196)144-887638 [address] 08-19-2024 11:26-0500 Body mass index (BMI) [Ratio] 28.7 kg/m2 Dr. Tate Alcazar MD Work Phone: 9(346)364-684182 [place] [address] 08-19-2024 11:26-0500 Body temperature 98.2 [degF] Dr. Tate Alcazar MD Work Phone: 8(132)135-484282 [place] [address] 08-19-2024 11:26-0500 Body weight 90.[address] Tate Alcazar MD Work Phone: 5(463)419-278338 [address] 08-19-2024 11:26-0500 Diastolic blood pressure 92 mm[Hg] Dr. Tate Alcazar MD Work Phone: [facility] 08-19-2024 11:26-0500 Heart rate 68 /min Dr. Tate Alcazar MD Work Phone: [facility] 08-19-2024 11:26-0500 Respiratory rate 15 /min Dr. Tate Alcazar MD Work Phone: [facility] 08-19-2024 11:26-0500 SaO2% (BldA) [Mass fraction] 99 % Dr. Tate Alcazar MD Work Phone: [facility] 08-19-2024 11:26-0500 Systolic blood pressure 158 mm[Hg] Dr. Tate Alcazar MD Work Phone: [facility] 10-02-2023 09:18-0500 Body temperature 98.1 [degF] Dr. Nelson Alcazar Work Phone: [facility] 10-02-2023 09:18-0500 Body weight 85.[address] Nelson Alcazar Work Phone: [facility] 10-02-2023 09:18-0500 Diastolic blood pressure 82 mm[Hg] Dr. Nelson Alcazar Work Phone: [facility] 10-02-2023 09:18-0500 Heart rate 71 /min Dr. Nelson Alcazar Work Phone: [facility] 10-02-2023 09:18-0500 Respiratory rate 14 /min Dr. Nelson Alcazar Work Phone: [facility] 10-02-2023 09:18-0500 SaO2% (BldA) [Mass fraction] 99 % Dr. Nelson Alcazar Work Phone: [facility] 10-02-2023 09:18-0500 Systolic blood pressure 145 mm[Hg] Dr. Nelson Alcazar Work Phone: [facility] Encounters Encounter Date Encounter Type Care Provider Facility Start: 07-27-2025 ambulatory Tate Alcazar [facility] lity:[facility] Start: 05-14-2025 End: 05-14-[address] Tate Alcazar MD Work Phone: -Laboratory Start: 05-14-2025 End: 05-14-[address] Tate Alcazar MD -Laboratory Work Phone: Start: 05-14-2025 End: 05-14-2025 ambulatory Mayank Inge Facility:[facility] Start: 05-12-2025 End: 05-12-[address] Tate Alcazar MD Work Phone: -Laboratory [facility] Start: 05-12-2025 End: 05-12-[address] Tate Alcazar MD -[facility] Start: 05-12-2025 End: 05-12-2025 ambulatory Tate Alcazar Facility:[facility] Start: 04-30-2025 End: 04-30-[address] Tate Alcazar MD Work Phone: -Laboratory [place] Start: 04-30-2025 End: 04-30-[address] Chris Rocha MD -[facility] Work Phone: Start: 04-30-2025 End: 04-30-[address] Chris Rocha MD -[facility] Work Phone: Start: 04-30-2025 End: 04-30-[address] Tate Alcazar MD Work Phone: -[facility] Start: 04-30-2025 End: 04-30-2025 ambulatory Tate Alcazar Facility:[facility] Start: 04-17-2025 End: 04-17-[address] Tate Alcazar MD Work Phone: -Laboratory Start: 04-17-2025 End: 04-17-[address] 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; Unspecified abnormalities of gait and mobility; Cerebrovascular disease, unspecified; (Idiopathic) normal pressure hydrocephalus (HCC) Start: 02-23-2025 End: 02-23-2025 [facility] Start: 02-04-2025 End: 05-06-2025 Transcribe Orders Chris Rocha MD Work Phone: [facility] Scheduling Comment on above: 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 Chris Rocha MD -[facility] Work Phone: Start: 01-21-2025 End: 01-21-2025 ambulatory Mayanktaras Skyradha Facility:[facility] Start: 01-20-2025 End: 01-20-[address] Chris Rocha MD -[facility] Work Phone: Start: 01-20-2025 End: 01-20-2025 [facility] Start: 01-20-2025 End: 01-20-[address] Tate Alcazar MD Work Phone: [facility] Work Phone: Start: 01-20-2025 End: 01-20-[address] Chris Rocha MD -Radiology, [facility] Work Phone: Start: 01-20-2025 End: 01-20-[address] Chris Rocha MD -[facility] Work Phone: Start: 01-20-2025 End: 01-20-2025 ambulatory MayankBannerradha Facility:[facility] Start: 01-20-2025 End: 01-20-2025 ambulatory [facility] Facility:[facility] Start: 12-25-2024 End: 12-25-[address] Chris Rocha MD -[facility] Work Phone: Start: 12-25-2024 End: 12-25-2024 [facility] Start: 11-26-2024 [facility] Fac[facility]ity:[facility] Start: 11-14-2024 End: 11-14-[address] Tate Alcazar MD Work Phone: [facility] Work Phone: Start: 11-14-2024 End: 11-14-[address] Chris Rocha MD -MRI - [facility] Work Phone: Start: 11-14-2024 End: 11-14-2024 ambulatory [facility] Facility:[facility] Start: 10-30-2024 End: 10-30-[address] [facility] Start: 10-30-2024 End: 10-30-[address] Chris Rocha MD -[facility] Work Phone: Start: 10-30-2024 End: 10-30-2024 [facility] Start: 10-30-2024 End: 10-30-[facility] Start: 10-15-2024 Encounter for genera l adult medical examination without abnormal [facility] Start: 10-06-2024 End: 10-06-[address] Tate Alcazar MD -Ultrasound, [facility] Work Phone: Start: 10-06-2024 End: 10-06-2024 ambulatory [facility] Facility:[facility] Start: 09-23-2024 End: 09-23-[address] Tate Alcazar MD -Laboratory, [facility] Start: 09-23-2024 End: 09-23-2024 ambulatory [facility] Facility:[facility] Start: 09-22-2024 End: 09-22-[address] Chris Rocha MD -[facility] Work Phone: Start: 09-22-2024 End: 09-22-2024 ambulatory [facility] Facility:[facility] Start: 09-19-2024 End: 09-19-[address] Tate Alcazar MD Work Phone: [facility] Work Phone: Start: 09-19-2024 End: 09-19-[address] Tate Alcazar MD -Laboratory, [facility] Start: 09-19-2024 End: 09-19-2024 ambulatory [place] In[place] Facility:[facility] Start: 08-25-2024 End: 08-25-2024 ambulatory [facility] Facility:[facility] Start: 08-25-2024 End: 08-25-2024 Non-patient / Non-visit Dr. Ayo Salazar MD -[facility] Work Phone: Start: 08-25-2024 End: 08-25-[address] Chris Rocha MD -Pulmonary Services/Neurology Work Phone: Start: 08-25-2024 End: 08-25-2024 ambulatory [facility] Facility:[facility] Start: 08-22-2024 End: 08-22-2024 ambulatory [facility] Facility:[facility] Start: 08-22-2024 End: 08-22-[address] Chris Rocha MD -Physical Therap y Work Phone: Start: 08-19-2024 End: 08-19-[address] Chris Rocha MD -[facility] Work Phone: Start: 08-19-2024 End: 08-19-2024 ambulatory Tate Alcazar Facility:[facility] Start: 07-30-2024 End: 07-30-2024 ambulatory Chrisbeatriz Meyergudelia Facility:[facility] Start: 01-01-2024 End: 01-01-[address] Tate Alcazar Work Phone: [facility] Work Phone: Start: 01-01-2024 End: 01-01-[address] Tate Alcazar Work Phone: [facility]-Sleep Lab Work Phone: Start: 11-07-2023 Non-patient / Non-visit Dr. Wendy Alcazar Work Phone: [facility] Start: 11-07-2023 End: 11-07-[address] Ttae Alcazar Work Phone: [facility]-Pulmonary Services/Neurology Work Phone: Start: 10-15-2023 End: 10-15-[address] Nelson Alcazar Work Phone: [facility] Work Phone: Start: 10-15-2023 End: 10-15-[address] Nelson Alcazar Work Phone: [facility] Work Phone: Start: 10-03-2023 End: 10-03-[address] Nelson Alcazar Work Phone: [facility] Work Phone: Start: 10-03-2023 End: 10-03-[address] Nelson Alcazar Work Phone: [facility] Work Phone: Start: 10-02-2023 End: 10-02-[address] Nelson Alcazar Work Phone: [facility] Work Phone: Start: 07-18-2023 End: 07-18-2023 ambulatory [facility] Work Phone: Start: 07-18-2023 End: 07-18-2023 Patient encounter procedure [facility]-Cat Scan, [facility] Work Phone: Start: 07-11-2023 End: 07-11-2023 ambulatory [facility] Work Phone: Start: 07-11-2023 End: 07-11-2023 Discharged Recurring [facility]-Physical Therapy Work Phone: Start: 05-16-2023 Registered Recurring [facility]-Physical Therapy Work Phone: Start: 05-12-2023 End: 05-12-2023 ambulatory [facility] Work Phone: Start: 05-12-2023 End: 05-12-2023 Patient encounter procedure [facility]-MRI - [facility] Work Phone: Start: 04-30-2023 End: 04-30-2023 ambulatory [facility] Work Phone: Start: 04-30-2023 End: 04-30-2023 Patient encounter procedure [facility]-Laboratory, Specimen Work Phone: Start: 04-17-2023 End: 04-17-2023 ambulatory [facility] Work Phone: Start: 04-17-2023 End: 04-17-2023 Patient encounter procedure [facility]-Laboratory, [facility] Start: 10-30-2022 End: 10-30-2022 ambulatory [facility] Work Phone: Start: 10-30-2022 End: 10-30-2022 Patient encounter procedure [facility]-Laboratory, Specimen Start: 10-09-2022 End: 10-09-2022 ambulatory [facility] Work Phone: Start: 10-09-2022 End: 10-09-2022 Patient encounter procedure [facility]-Laboratory, [facility] Start: 04-12-2022 End: 04-12-2022 Patient encounter procedure [facility]-Ultrasound, [facility] Start: 04-04-2022 End: 04-04-2022 Patient encounter procedure [facility]-Laboratory, [facility] Procedures Date Procedure Procedure Detail Performing Clinician Start: 01-20-2025 End: 01-20-[address] Tate Alcazar MD Work Phone: Start: 01-20-2025 Gram stain microscopy Marilee Alcazar MD Work Phone: Start: 01-20-2025 Measurement of prote in in cerebrospinal fluid specimen Dr. Tate Alcazar MD Work Phone: Start: 01-20-[address] Tate Alcazar MD Work Phone: Start: 11-14-2024 MRI of thoracic spine Marilee Alcazar MD Work Phone: Start: 10-30-2024 Hepatitis A virus antibody, IgM type Dr. Tate Alcazar MD Work Phone: Comment on above: A negative anti-HAV IgM result suggests no recent orcurrent HAV infection. Start: 10-30-2024 Hepatitis B core ant ibody measurement, IgM type Dr. Tate Alcazar MD Work Phone: Start: 10-30-2024 Hepatitis C antibody measurement Dr. Tate Alcazar MD Work Phone: Start: 10-06-[address] Tate Alcazar MD Work Phone: Start: 10-06-[address] Tate Alcazar MD Work Phone: Start: 09-22-2024 MRI of cervical spine Marilee Alcazar MD Work Phone: Start: 10-15-2023 MRI of cervical spine Marilee Alcazar Work Phone: Start: 07-18-2023 CT angiography of ne ck vessels Start: 05-12-2023 MRI of brain without contrast Start: 04-30-2023 Bacteria identified in Urine by Culture Start: 04-30-2023 Urine culture Start: 04-12-2022 Ultrasonography of abdomen H/O: surgery History of metal removed from eye Dr. Nelson Alaczar Work Phone: Plan of Treatment Date Care Activity Detail Author Start: 2026 RSV Immunization for Adults (1 - 1-dose 75+ series) RSV Immunization for Adults (1 - 1-dose 75+ series) [facility] Start: 05-18-2025 Influenza vaccination [facility] Start: 01-20-2025 Cerebrospinal fluid culture CSF Culture [facility] Start: 01-20-2025 Bacterial culture [facility] Start: 01-20-2025 Microscopic observat ion [Identifier] in Body fluid by Cyto stain [facility] Start: 08-20-2024 Patient referral [facility] Work Phone: Start: 05-18-2024 COVID-19 Vaccine ( season) COVID-19 Vaccine ( season) [facility] Start: 2001 Pneumococcal Vaccine : 50+ Years (1 of 1 - PCV) Pneumococcal Vaccine: 50+ Years (1 of 1 - PCV) [facility] Start: 2001 Zoster Vaccines (1 of 2) Zoste r Vaccines (1 of 2) [facility] Start: 1970 DTaP/Tdap/Td Vaccine s (1 - Tdap) DTaP/Tdap/Td Vaccines (1 - Tdap) [facility] Start: 1963 Depression Screening Depression Scre ening [facility] Start: 1951 Lipid panel Lipid Panel [facility] Start: 1950 Screening for malign ant neoplasm of colon [facility] Complete blood count [facility] Cytology report of B le fluid Cyto stain [facility] MR Brain WO contrast [facility] End: 02-23-2025 MR Brain WO contrast [facility] Work Phone: Comment on above: Once for 1 Occurrenc es starting 02/23/2025 until 02/23/2025 MR Cervical spine [facility] Patient Education RAD RN Lumbar Puncture Having [facility] Work Phone: Patient referral [facility] Work Phone: Polysomnography [facility] XR Orbit - bilateral Views for foreign body [facility] Payers Date Payer Category Payer Self-pay [id number] 2018 Medicare supplementa l policy (as second payer) [facility] MEDICARE SUPPLEMENT [id number] 2018 Unknown [id number] 2016 Medicare MEDICARE PART A AND B [id number] 2016 Medicare [id number] Unknown [id number] Unknown [id number] 2.16.840.1.734335.3.579. 2.462 Unknown [id number] 2..840.1.714373.3.579. 2.462 Unknown [id number] 2.16.840.1.387441.3.579. 2.462 Unknown [id number] 2..840.1.491907.3.579. 2.462 Unknown [id number] 2.840.1.438492.3.579. 2.462 Unknown [id number] 2.840.1.121366.3.579. 2.462 Unknown [id number] 2.840.1.244101.3.579. 2.462 Unknown [id number] 2.840.1.660699.3.579. 2.462 Unknown [id number] 2.840.1.850997.3.579. 2.462 Unknown [id number] 2.840.1.156695.3.579. 2.462 Unknown [id number] 2.840.1.671946.3.579. 2.462 Unknown [id number] 2.840.1.324668.3.579. 2.462 Unknown [id number] 2.840.1.154403.3.579. 2.462 Unknown [id number] .840.1.777862.3.579. 2.462 Unknown [id number] .840.1.170361.3.579. 2.462 Unknown [id number] 2.840.1.462311.3.579. 2.462 Unknown [id number] 2.840.1.878110.3.579. 2.462 Unknown [id number] 2..840.1.829091.3.579. 2.462 Unknown [id number] 2.16.840.1.004417.3.579. 2.462 Unknown [id number] 2.16.840.1.662365.3.579. 2.462 Unknown [id number] 2.16.840.1.149928.3.579. 2.462 Unknown [id number] 2.16.840.1.265806.3.579. 2.462 Unknown [id number] 2.16.840.1.729383.3.579. 2.462 Unknown [id number] 2.16.840.1.113605.3.579. 2.462 Social History Date Type Detail Facility Start: 11-04-2013 End: 10-02-2023 Tobacco smoking status NHIS Unknown if ever smoked [facility] Start: 1950 Sex Assigned At Male [facility] Start: 10-02-2023 Tobacco smoking stat us HIIS Never smoked tobacco (finding) [facility] Start: 11-28-2024 End: 02-04-2025 Sex Male (finding) [facility] Start: 1950 Sex assigned at Not on file [facility] Gender identity Not on file [facility] Mental Status Date Assessment Result Facility 01-20-2025 Cognitive function Awake;Alert;Appropriat e [facility] Work Phone: Clinical Notes 07-11-2023 to 01-20-2025 Note Date & Type Note Facility 01-20-2025 Radiology Diagnostic study note [facility] Imaging Services [address], [place] [address] Dx Lumbar Puncture w/IMG Guide MR#: [id number] Acct: [id number] Name: LAILA COKER Rep #: [id number] : 1950 M 74 From: Pasha Ramirez MD PCP: Dr. 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 COMPARISON: None. FINDINGS: Procedure: Following informed consent, and using standard sterile technique, a lumbar puncture at the level of L2-L3 was performed via a left posterior oblique approach. 2% lidocaine local anesthesia was followed by placement a 20 gauge spinal needle into the thecal sac at the L2-L3 level. 40 mL clear fluid was then successfully removed. No complication was encountered, and the patient left the department in good condition, without significant complaint. RAD/Dx Lumbar Puncture w/IMG Guide IMPRESSION: Successful high-volume fluoroscopically guided lumbar puncture, with 40 mL clearfluid successfully removed. Reading Location: [place] [address] CC: Dr. Tate Alcazar MD; Dr. Chris Rocha MD ~ Patient Access Director: Signed [facility] 01-20-2025 Chief complaint+R annetta for visit Narrative BEFORE PROCEDURE January 20, 2025 8:28am NROMAL PRESSURE HYDROCEPHALU S; DRAIN 40ML CSF January 20, 2025 11:15am AFTER PROCEDURE January 20, 2025 2:55pm AFTER PROCEDURE VISIT January 21, 2025 8:52 am LABS April 17, 2025 11: 50am 3 M FU April 30, 2025 8: 21am Reason for Visit Admit Date Abnormality of gait and mobility January 8:28am Cerebrovascular disease January 20, 2025 8: 28am Mild cognitive impairment January 20, 2025 8:28am Normal pressure hydrocephalus January 20, 025 8:28am Polyneuropathy January 20, 2025 8:28am Abnormality of gait and mobility January 8:52am Mild cognitive impairment January 21, 2025 8:52am Normal pressure hydrocephalus January 21 025 8:52am [place] [employer] Work Phone: 1(579) 496-417605-06-2025 Chief complaint+Reason for visit Narrative * Chief Complaint Admit Date BEFORE PROCEDURE January 20, 2025 8:28am NROMAL PRESSURE HYDROCEPHALUS; DRAIN 40M L CSF January 20, 2025 11:15am AFTER PROCEDURE January 20, 2025 2:55pm AFTER PROCEDURE VISIT January 21, 2025 8:52 am LABS April 17, 2025 11: 50am 3 M FU April 30, 2025 8: 21am EORDER April 30, 2025 9: 26am Reason for Visit Admit Date Abnormality of gait and mobility January 8:28am Cerebrovascular disease January 20, 2025 8: 28am Mild cognitive impairment January 20, 2025 8:28am Normal pressure hydrocephalus January 20, 025 8:28am Polyneuropathy January 20, 2025 8:28am Abnormality of gait and mobility January 8:52am Mild cognitive impairment January 21, 2025 8:52am Normal pressure hydrocephalus January 21 025 8:52am Abnormality of gait and mobility April 30, 2025 8:21am Cerebrovascular disease April 30 8:21am Mild cognitive impairment April 30 025 8:21am Polyneuropathy April 30, 2025 8: 21am [facility] Work Phone: 1([phone]) 889-405005-06-2025 Chief complaint+Reason for visit Narrative * Chief Complaint Admit Date BEFORE PROCEDURE January 20, 2025 8:28am NROMAL PRESSURE HYDROCEPHALUS; DRAIN 40M L CSF January 20, 2025 11:15am AFTER PROCEDURE January 20, 2025 2:55pm AFTER PROCEDURE VISIT January 21, 2025 8:52 am LABS April 17, 2025 11: 50am 3 M FU April 30, 2025 8: 21am EORDER April 30, 2025 9: 26am REDRAW May 14, 2025 8: 27am Reason for Visit Admit Date Abnormality of gait and mobility January 8:28am Cerebrovascular disease January 20, 2025 8: 28am Mild cognitive impairment January 20, 2025 8:28am Normal pressure hydrocephalus January 20, 025 8:28am Polyneuropathy January 20, 2025 8:28am Abnormality of gait and mobility January 8:52am Mild cognitive impairment January 21, 2025 8:52am Normal pressure hydrocephalus January 21, 025 8:52am Abnormality of gait and mobility April 30, 2025 8:21am Cerebrovascular disease April 30 8:21am Mild cognitive impairment April 30, 025 8:21am Polyneuropathy April 30, 2025 8: 21am [facility] Work Phone: 1(121) 616-245805-06-2025 Evaluation note* Diagnosis Onset Date Resolution Status Admit Date Abnormality of gait and mobility acu te January 20, 2025 8:28am Cerebrovascular disease acute M ay 2024 8:28am Mild cognitive impairment acute January 20, 2025 8:28am Normal pressure hydrocephalus acute January 20, 2025 8:28am Polyneuropathy acute January 20, 2 025 8:28am Abnormality of gait and mobility acu te January 21, 2025 8:52am Mild cognitive impairment acute January 21, 2025 8:52am Normal pressure hydrocephalus acute January 21, 2025 8:52am [facility] Work Phone: 1(222) 470-484005-06-2025 Evaluation note* Diagnosis Onset Date Resolution Status Admit Date Abnormality of gait and mobility acu te January 20, 2025 8:28am Cerebrovascular disease acute M 2024 8:28am Mild cognitive impairment acute January 20, 2025 8:28am Normal pressure hydrocephalus acute January 20, 2025 8:28am Polyneuropathy acute January 20, 025 8:28am Abnormality of gait and mobility acu te January 21, 2025 8:52am Mild cognitive impairment acute January 21, 2025 8:52am Normal pressure hydrocephalus acute January 21, 2025 8:52am Abnormality of gait and mobility acu te April 30, 2025 8:21am Cerebrovascular disease acute A ugust 2024 8:21am Mild cognitive impairment acute April 30, 2025 8:21am Polyneuropathy acute April 8:21am [facility] Work Phone: 1(302) 381-650804-10-2025 Chief complaint+Reason for visit Narrative * Chief Complaint Admit Date 2 M FU December 25, 2024 10: 54am BEFORE PROCEDURE January 20, 2025 8:28am NROMAL PRESSURE HYDROCEPHALUS; DRAIN 40M L CSF January 20, 2025 11:15am AFTER PROCEDURE January 20, 2025 2:55pm AFTER PROCEDURE VISIT January 21, 2025 8:52 am LABS April 17, 2025 11: 50am Reason for Visit Admit Date Abnormality of gait and mobility December 162024 10:54am Cerebrovascular disease December 25, 2024 10:54am Constipation December 25, 2024 10: 54am Insomnia December 25, 2024 10: 54am Mild cognitive impairment December 25 10:54am Normal pressure hydrocephalus December 10:54am Polyneuropathy December 25, 2024 10: 54am Abnormality of gait and mobility January 8:28am Cerebrovascular disease January 20, 2025 8: 28am Mild cognitive impairment January 20, 2025 8:28am Normal pressure hydrocephalus January 20, 8:28am Polyneuropathy January 20, 2025 8:28am Abnormality of gait and mobility January 8:52am Mild cognitive impairment January 21, 2025 8:52am Normal pressure hydrocephalus January 21 8:52am [facility] Work Phone: 1(449) 976-450104-10-2025 Evaluation note* Diagnosis Onset Date Resolution Status Admit Date Abnormality of gait and mobility acu te December 25, 2024 10:54am Cerebrovascular disease acute A pri2024 10:54am Constipation acute December 25, 2024 10:54am Insomnia acute December 25 10:54am Mild cognitive impairment acute December 25, 2024 10:54am Normal pressure hydrocephalus acute December 25, 2024 10:54am Polyneuropathy acute December 10:54am Abnormality of gait and mobility acu te January 20, 2025 8:28am Cerebrovascular disease acute M ay 2024 8:28am Mild cognitive impairment acute January 20, 2025 8:28am Normal pressure hydrocephalus acute January 20, 2025 8:28am Polyneuropathy acute January 20 8:28am Abnormality of gait and mobility acu te January 21, 2025 8:52am Mild cognitive impairment acute January 21, 2025 8:52am Normal pressure hydrocephalus acute January 21, 2025 8:52am [facility] Work Phone: 1(661) 936-277202-13-2025 Evaluation note* Diagnosis Onset Date Resolution Status Admit Date Abnormality of gait and mobility acu te October 30, 2024 9:44am Cerebrovascular disease acute F ebruary 2024 9:44am Insomnia acute October 30, 2024 9:44am Peripheral vestibulopathy acute October 30, 2024 9:44am Polyneuropathy acute October 182024 9:44am Abnormality of gait and mobility acu te December 25, 2024 10:54am Cerebrovascular disease acute A pril 2024 10:54am Constipation acute December 25, 2024 10:54am Insomnia acute December 25 10:54am Mild cognitive impairment acute December 25, 2024 10:54am Normal pressure hydrocephalus acute December 25, 2024 10:54am Polyneuropathy acute December 10:54am Abnormality of gait and mobility acu te January 20, 2025 8:28am Cerebrovascular disease acute M ay 2024 8:28am Mild cognitive impairment acute January 20, 2025 8:28am Normal pressure hydrocephalus acute January 20, 2025 8:28am Polyneuropathy acute January 20, 025 8:28am Abnormality of gait and mobility acu te January 21, 2025 8:52am Mild cognitive impairment acute January 21, 2025 8:52am Normal pressure hydrocephalus acute January 21, 2025 8:52am [facility] Work Phone: 1(230) 933-863112-03-2024 Evaluation note* Diagnosis Onset Date Resolution Status Admit Date Abnormality of gait and mobility acu te August 19, 2024 11:22am Cardiac arrhythmia acute Decemb er 2023 11:22am Cerebrovascular disease acute D ecember 2023 11:22am Cervical spinal stenosis acute August 19, 2024 11:22am Constipation acute August 11:22am Insomnia acute August 19, 2024 11:22am Peripheral vestibulopathy acute August 19, 2024 11:22am Polyneuropathy acute August 192023 11:22am Abnormality of gait and mobility acu te October 30, 2024 9:44am Cerebrovascular disease acute F ebruary 2024 9:44am Insomnia acute October 30, 2024 9:44am Peripheral vestibulopathy acute October 30, 2024 9:44am Polyneuropathy acute October 182024 9:44am [facility] Work Phone: 1([phone]) 930-574110-25-2023 Discharge summary Author Roland Haynes [facility] July 11, 2023 4:27pm Note Date/Time July 11, 2023 9 :41am [facility] Physical Therapy [facility] [address] [place] [address]. [address] [place] [address] / REHABILITATION SERVICES DISCHARGE SUMMARY MR#: [id number] Acct: [id number] Name: LAILA COKER Rep #: [id number] : 1950 72 From: India Mcallister. LUKE, OCS Referring Dr.: Dr. Nelson Alcazar MD Statu s: REG RCR Insurance: MEDICARE PART A B ANTHEM Discharge Summary D/C summary: It has been my pleasure to treat LAILA COKER referred by Dr. Nelson Alcazar MD, with the diagnosis of GAIT INSTABILITY for a total of 19 visit(s). Discharge Date: Please see the following information for a summary of their discharge status. Subjective Subjective: Overall doing better. No pain C/O knee pain Plan to get carotid resting Overall Improvement % Improvement: 75 Objective Objective/Function: pt is possibly joining the gym to do indep workouts. Filled out a gym log sheet for pt and given a copy in case pt does come on his own . Reviewed machines and the set ups to work on independence w/ them. Goals Goal 1:: Patient to be I with HEP Goal Progress: Goal Met Goal 2:: Patient improve CATSIB by 5-10 points to improve balance. Goal Progress: Progressing Goal 3:: Patient to improve LFES score by 10 points to improve gait and function( new goal) Goal Progress: Goal Met Goal 4:: Patient to improve functional gait assessment by 5 points to improve balance and function (new goal0 Goal Progress: Goal Met Goal 5:: Patient to improve 30sec sit-stand x5 reps to improve functional strength Goal Progress: Goal Met Goal 6:: Patient to improve peak force BLE by 5-10 # to improve gait and function( new goal) Goal Progress: Progressing Plan Plan: D/C D/C Information d/c sentence: If there are questions or concerns regarding this patient's physical therapy, please feel free to call me at [phone]. Thank you for the referral of thispatient. Sincerely, Roland Haynes, PT, Cert MDT, OCS Balance/Gait/Functional tests Balance/Special Test Scores Functional Gait Assessment Score: 30 % Disability: 0 CATSIB Score (Max score 120 seconds): 120 Lower Extremity Functional Score: 53 TUG Test Time Seconds: 8.96 Tug Test: <10 sec.=free mobile 30 Second Chair Rise Test Seconds: 18 Improvement % Improvement: 75 <Electronically signed by Roland Haynes PT, Cert. T, OCS> 07/11/23 8624 CC: Dr. Nelson Alcazar MD ~ JLA Signed [facility] Work Phone: Evaluation noteNo assessment information available [facility] Work Phone: Evaluation note* Diagnosis Onset Date Resolution Status Abnormality of gait and mobility acute Mild cognitive impairment ac curyung Neck pain acute Parkinson's disease acute Polyneuropathy acute [facility] Work Phone: Evaluation note* Diagnosis Mild cognitive impairment of uncertain or unknown etiology Unspecified abnormalities of gait and mobility Cerebrovascular disease, unspecified (Idiopathic) normal pressure hydrocephalus (HCC) [facility] Mild cognitive impairment of uncertain or unknown etiology- Primary Unspecified abnormalities of gait and mobility Cerebrovascular disease, unspecified (Idiopathic) normal pressure hydrocephalus (HCC) Mild cognitive impairment of uncertain or unknown etiology Unspecified abnormalities of gait and mobility Cerebrovascular disease, unspecified (Idiopathic) normal pressure hydrocephalus (HCC) [facility]ative)No reason for referral information availableAd[facility] Work Phone: Refriu for visit Narrative* Imaging (Routine) - Closed Specialty Diagnoses / Procedures Referred By Contac t Referred To Contact Radiology Diagnoses Mild cognitive impairment of uncertain or unknown etiology Unspecified abnormalities of gait and mobility Cerebrovascular disease, unspecified (Idiopathic) normal pressure hydrocephalus (HCC) Procedures MR brain wo Chris Ugalde MD [address] [address] Phone: tel: fax: [facility] [address] [place] [address] Phone: tel: Referral ID Status Reason Start Date Expiration Date Visits Re quested Visits Authorized [id number] Closed 02/04/2025 02/04/2026 1 1 [facility] Advance Directives No Advanced Directives Records Found Advance Directive Response Recorded Date/ Time Living Will Yes November 04 014 4:59am Power of Tank Setter Helper Yes November 04, 2013 4:59am Advance Directive Response Recorded Date/ Time Living Will Yes November 04 014 3:59am Power of Tank Setter Helper Yes November 04, 2013 3:59am Advance Directive Response Recorded Date/ Time Living Will Yes November 04 014 4:59am Do you have a Healthcare Power of Tank Setter Helper? Yes November 04, 2013 4:59am Chief Complaint and Reason for Visit Chief Complaint ELEVATED LFT'S Chief Complaint SEE ORDER Chief Complaint Unsteadiness on feet GAIT INSTABILITY. RX HERE Chief Complaint Unsteadiness on feet GAIT INSTABILITY. RX HERE Dizziness and giddiness Chief Complaint GAIT INSTABILITY. RX HERE Dizziness and giddiness Parkinson's disease EORDER Reason for Visit Abnormality of gait and mobility Mild cognitive impairment Neck pain Parkinson's disease Polyneuropathy Chief Complaint GAIT INSTABILITY. RX HERE Dizziness and giddiness Parkinson's disease EORDER Cervicalgia Reason for Visit Abnormality of gait and mobility Mild cognitive impairment Neck pain Parkinson's disease Polyneuropathy Chief Complaint Parkinson's disease EORDER Cervicalgia BLE ANESTHESIA; GAIT BLE ANESTHESIA; GAIT HYPERSOMNIA Reason for Visit Abnormality of gait and mobility Mild cognitive impairment Neck pain Parkinson's disease Polyneuropathy Chief Complaint Admit Date 4 M FU August 19, 2024 1 1:22am VESTIBULAR/RX HERE August 22, 2024 1 :00pm Cardiac arrhythmia, unspecified August 25, 2024 8:32am ROUTINE August 25, 2024 8 :48am NECK PAIN, SPINAL STENOSIS, GAIT DISORDE R September 22, 2024 8:08am ABNORMAL BLOOD CHEMISTRY October 06 025 8:29am 2 M FU October 30, 2024 9:44am E-ORDER October 30, 2024 10:49am ASSESS FOR PATHOLOGY THAT MAY CAUSE MYEL OPATHY November 14, 2024 3:24pm Reason for Visit Admit Date Abnormality of gait and mobility Decembe r 2023 11:22am Cardiac arrhythmia August 19, 2024 1 1:22am Cerebrovascular disease August 19 11:22am Cervical spinal stenosis August 19, 024 11:22am Constipation August 19, 2024 1 1:22am Insomnia August 19, 2024 1 1:22am Peripheral vestibulopathy August 19, 2024 11:22am Polyneuropathy August 19, 2024 1 1:22am Abnormality of gait and mobility , 2025 9:44am Cerebrovascular disease October 30 9:44am Insomnia October 30, 2024 9:44am Peripheral vestibulopathy October 30, 2024 9:44am Polyneuropathy October 30, 2024 9:44am Chief Complaint Admit Date ABNORMAL BLOOD CHEMISTRY October 06 8:29am 2 M FU October 30, 2024 9:44am E-ORDER October 30, 2024 10:49am ASSESS FOR PATHOLOGY THAT MAY CAUSE MYEL OPATHY November 14, 2024 3:24pm 2 M FU December 25, 2024 10: 54am BEFORE PROCEDURE January 20, 2025 8:28am NROMAL PRESSURE HYDROCEPHALUS; DRAIN 40M L CSF January 20, 2025 11:15am AFTER PROCEDURE January 20, 2025 2:55pm AFTER PROCEDURE VISIT January 21, 2025 8:52 am Reason for Visit Admit Date Abnormality of gait and mobility 2024 9:44am Cerebrovascular disease October 30 9:44am Insomnia October 30, 2024 9:44am Peripheral vestibulopathy October 30, 2024 9:44am Polyneuropathy October 30, 2024 9:44am Abnormality of gait and mobility December 162024 10:54am Cerebrovascular disease December 25, 2024 10:54am Constipation December 25, 2024 10: 54am Insomnia December 25, 2024 10: 54am Mild cognitive impairment December 25 10:54am Normal pressure hydrocephalus December 10:54am Polyneuropathy December 25, 2024 10: 54am Abnormality of gait and mobility January 8:28am Cerebrovascular disease January 20, 2025 8: 28am Mild cognitive impairment January 20, 2025 8:28am Normal pressure hydrocephalus January 20 8:28am Polyneuropathy January 20, 2025 8:28am Abnormality of gait and mobility January 8:52am Mild cognitive impairment January 21, 2025 8:52am Normal pressure hydrocephalus January 21 8:52am Summary Purpose Family History No Family History Records FoundNo Family History Records Found Additional Source Comments Goals (unrecognized section and content) Goals may be documented in a n alternate sectionGoals may be documented in an alternate sectionGoals may be documented in an alternate sectionGoals may be documented in an alternate sectionGoals may be documented in an alternate sectionGoals may be documented in an alternate sectionGoals may be documented in an alternate sectionGoals may be documented in an alternate sectionGoals may be documented in an alternate sectionGoals may be documented in an alternate sectionGoals may be documented in an alternate sectionGoals may be documented in an alternate sectionGoals may be documented in an alternate sectionGoals may be documented in an alternate sectionGoals may be documented in an alternate sectionGoals may be documented in an alternate sectionGoals may be documented in an alternate sectionGoals may be documented in an alternate sectionGoals may be documented in an alternate sectionGoals may be documented in an alternate section Care Teams (unrecognized sec tion and content) Team Status: Active Member Role Status Dates Dr. Nelson Alcazra MD Family Provider Active Dr. Nelson Alcazar MD Primary Care Provider Activ e Team Status: Inactive Member Role Status Dates Dr. Nelson Alcazar MD Primary Care Provider, Atte nding Provider Active Team Status: Inactive Member Role Status Dates Dr. Nelson Alcazar MD Primary Care Provider, Attending Provider, Referring Provider Active Team Status: Active Member Role Status Dates Dr. Nelson Alcazar MD Primary Care Provider, Attending Provider, Referring Provider Active Team Status: Inactive Member Role Status Dates Dr. Nelson Alcazar MD Primary Care Provider, Refe rring Provider Active Dr. Chris Rocha MD Attending Provider Active Team Status: Inactive Member Role Status Dates Dr. Nelson Alcazar MD Primary Care Provider Activ e Dr. Chris Rocha MD Attending Provider, Referring Provider Active Team Status: Active Member Role Status Dates Dr. Tate Alcazar MD Family Provider Active Dr. Tate Alcazar MD Primary Care Provider Acti ve Team Status: Inactive Member Role Status Dates Dr. Tate Alcazar MD Primary Care Provider, Ref erring Provider Active Dr. Chris Rocha MD Attending Provider Active Team Status: Active Member Role Status Dates Dr. Tate Alcazar MD Primary Care Provider Acti ve Dr. Chris Rocha MD Referring Provider, Other Pro vider Active Dr. Galdino Storm MD Attending Provider Active Team Status: Inactive Member Role Status Dates Dr. Tate Alcazar MD Primary Care Provider Acti ve Dr. Chris Rocha MD Attending Provider, Referring Provider Active Team Status: Inactive Member Role Status Dates Dr. Tate Alcazar MD Primary Care Provider Acti ve Dr. Chris Rocha MD Attending Provider Active Team Status: Active Member Role Status Dates Dr. Tate Alcazar MD Primary Care Provider Acti ve Team Status: Inactive Member Role Status Dates Dr. Tate Alcazar MD Primary Care Provider Acti ve Start: August 19, 2024 End: August 19, 2024 Dr. Tate Alcazar MD Referring Provider Active Start: August 19, 2024 End: August 19, 2024 Dr. Chris Rocha MD Attending Provider Active Start: August 19, 2024 End: August 19, 2024 Team Status: Inactive Member Role Status Dates Dr. Tate Alcazar MD Primary Care Provider Acti ve Start: August 22, 2024 End: August 22, 2024 Dr. Chris Rocha MD Attending Provider Active Start: August 22, 2024 End: August 22, 2024 Dr. Chris Rocha MD Referring Provider Active Start: August 22, 2024 End: August 22, 2024 Team Status: Inactive Member Role Status Dates Dr. Tate Alcazar MD Primary Care Provider Acti ve Start: August 25, 2024 End: August 25, 2024 Dr. Chris Rocha MD Attending Provider Active Start: August 25, 2024 End: August 25, 2024 Dr. Chris Rocha MD Referring Provider Active Start: August 25, 2024 End: August 25, 2024 Team Status: Active Member Role Status Dates Dr. Tate Alcazar MD Primary Care Provider Acti ve Start: August 25, 2024 End: August 25, 2024 Dr. Ayo Salazar MD Attending Provider Active S tart: August 25, 2024 End: August 25, 2024 Dr. Chris Rocha MD Referring Provider Active Start: August 25, 2024 End: August 25, 2024 Team Status: Inactive Member Role Status Dates Dr. Tate Alcazar MD Primary Care Provider Acti ve Start: September 22, 2024 End: September 22, 2024 Dr. Chris Rocha MD Attending Provider Active Start: September 22, 2024 End: September 22, 2024 Dr. Chris Rocha MD Referring Provider Active Start: September 22, 2024 End: September 22, 2024 Team Status: Inactive Member Role Status Dates Dr. Tate Alcazar MD Primary Care Provider Acti ve Start: September 23, 2024 End: September 23, 2024 Dr. Tate Alcazar MD Attending Provider Active Start: September 23, 2024 End: September 23, 2024 Dr. Tate Alcazar MD Referring Provider Active Start: September 23, 2024 End: September 23, 2024 Team Status: Inactive Member Role Status Dates Dr. Tate Alcazar MD Primary Care Provider Acti ve Start: October 06, 2024 End: October 06, 2024 Dr. Tate Alcazar MD Attending Provider Active Start: October 06, 2024 End: October 06, 2024 Dr. Tate Alcazar MD Referring Provider Active Start: October 06, 2024 End: October 06, 2024 Team Status: Inactive Member Role Status Dates Dr. Tate Alcazar MD Primary Care Provider Acti ve Start: October 30, 2024 End: October 30, 2024 Dr. Tate Alcazar MD Referring Provider Active Start: October 30, 2024 End: October 30, 2024 Dr. Chris Rocha MD Attending Provider Active Start: October 30, 2024 End: October 30, 2024 Team Status: Inactive Member Role Status Dates Dr. Tate Alcazar MD Primary Care Provider Acti ve Start: October 30, 2024 End: October 30, 2024 Dr. Chris Rocha MD Attending Provider Active Start: October 30, 2024 End: October 30, 2024 Dr. Chris Rocha MD Referring Provider Active Start: October 30, 2024 End: October 30, 2024 Team Status: Inactive Member Role Status Dates Dr. Tate Alcazar MD Primary Care Provider Acti ve Start: November 14, 2024 End: November 14, 2024 Dr. Chris Rcoha MD Attending Provider Active Start: November 14, 2024 End: November 14, 2024 Dr. Chris Rocha MD Referring Provider Active Start: November 14, 2024 End: November 14, 2024 Team Status: Inactive Member Role Status Dates Dr. Tate Alcazar MD Primary Care Provider Acti ve Start: September 19, 2024 End: September 19, 2024 Dr. Tate Alcazar MD Attending Provider Active Start: September 19, 2024 End: September 19, 2024 Dr. Tate Alcazar MD Referring Provider Active Start: September 19, 2024 End: September 19, 2024 Team Status: Inactive Member Role Status Dates Dr. Tate Alcazar MD Primary Care Provider Acti ve Start: December 25, 2024 End: December 25, 2024 Dr. Tate Alcazar MD Referring Provider Active Start: December 25, 2024 End: December 25, 2024 Dr. Chris Rocha MD Attending Provider Active Start: December 25, 2024 End: December 25, 2024 Team Status: Inactive Member Role Status Dates Dr. Tate Alcazar MD Primary Care Provider Acti ve Start: January 20, 2025 End: January 20, 2025 Dr. Tate Alcazar MD Referring Provider Active Start: January 20, 2025 End: January 20, 2025 Dr. Chris Rocha MD Attending Provider Active Start: January 20, 2025 End: January 20, 2025 Team Status: Inactive Member Role Status Dates Dr. Tate Alcazar MD Primary Care Provider Acti ve Start: January 20, 2025 End: January 20, 2025 Dr. Chris Rocha MD Attending Provider Active Start: January 20, 2025 End: January 20, 2025 Dr. Chris Rocha MD Referring Provider Active Start: January 20, 2025 End: January 20, 2025 Team Status: Inactive Member Role Status Dates Dr. Tate Alcazar MD Primary Care Provider Acti ve Start: January 21, 2025 End: January 21, 2025 Dr. Tate Alcazar MD Referring Provider Active Start: January 21, 2025 End: January 21, 2025 Dr. Chris Rocha MD Attending Provider Active Start: January 21, 2025 End: January 21, 2025 [employer] M[employer] Relationship Specialty Start Date End Date Tate Alcazar [address] [facility] [address] [place] [address] PCP - General Family Medicine 5/21/25 Team Status: Active Member Role/Relationship Status Dates Dr. Tate Alcazar MD Primary Care Provider Acti ve Team Status: Inactive Member Role/Relationship Status Dates Dr. Tate Alcazar MD Primary Care Provider Acti ve Start: December 25, 2024 End: December 25, 2024 Dr. Tate Alcazar MD Referring Provider Active Start: December 25, 2024 End: December 25, 2024 Dr. Chris Rocha MD Attending Provider Active Start: December 25, 2024 End: December 25, 2024 Team Status: Inactive Member Role/Relationship Status Dates Dr. Tate Alcazar MD Primary Care Provider Acti ve Start: January 20, 2025 End: January 20, 2025 Dr. Tate Alcazar MD Referring Provider Active Start: January 20, 2025 End: January 20, 2025 Dr. Chris Rocha MD Attending Provider Active Start: January 20, 2025 End: January 20, 2025 Team Status: Inactive Member Role/Relationship Status Dates Dr. Tate Alcazar MD Primary Care Provider Acti ve Start: January 20, 2025 End: January 20, 2025 Dr. Chris Rocha MD Attending Provider Active Start: January 20, 2025 End: January 20, 2025 Dr. Chris Rocha MD Referring Provider Active Start: January 20, 2025 End: January 20, 2025 Team Status: Inactive Member Role/Relationship Status Dates Dr. Tate Alcazar MD Primary Care Provider Acti ve Start: January 20, 2025 End: January 20, 2025 Dr. Tate Alcazar MD Referring Provider Active Start: January 20, 2025 End: January 20, 2025 Dr. Chris Rocha MD Attending Provider Active Start: January 20, 2025 End: January 20, 2025 Team Status: Inactive Member Role/Relationship Status Dates Dr. Tate Alcazar MD Primary Care Provider Acti ve Start: January 21, 2025 End: January 21, 2025 Dr. Tate Alcazar MD Referring Provider Active Start: January 21, 2025 End: January 21, 2025 Dr. Chris Rocha MD Attending Provider Active Start: January 21, 2025 End: January 21, 2025 Team Status: Inactive Member Role/Relationship Status Dates Dr. Tate Alcazar MD Primary Care Provider Acti ve Start: April 17, 2025 End: April 17, 2025 Dr. Tate Alcazar MD Attending Provider Active Start: April 17, 2025 End: April 17, 2025 Dr. Tate Alcazar MD Referring Provider Active Start: April 17, 2025 End: April 17, 2025 Team Status: Inactive Member Role/Relationship Status Dates Dr. Tate Alcazar MD Primary Care Provider Acti ve Start: January 20, 2025 End: January 20, 2025 Dr. Tate Alcazar MD Referring Provider Active Start: January 20, 2025 End: January 20, 2025 Dr. Chris Rocha MD Attending Provider Active Start: January 20, 2025 End: January 20, 2025 Team Status: Inactive Member Role/Relationship Status Dates Dr. Tate Alcazar MD Primary Care Provider Acti ve Start: January 20, 2025 End: January 20, 2025 Dr. Chris Rocha MD Attending Provider Active Start: January 20, 2025 End: January 20, 2025 Dr. Chris Rocha MD Referring Provider Active Start: January 20, 2025 End: January 20, 2025 Team Status: Inactive Member Role/Relationship Status Dates Dr. Tate Alcazar MD Primary Care Provider Acti ve Start: January 20, 2025 End: January 20, 2025 Dr. Tate Alcazar MD Referring Provider Active Start: January 20, 2025 End: January 20, 2025 Dr. Chris Rocha MD Attending Provider Active Start: January 20, 2025 End: January 20, 2025 Team Status: Inactive Member Role/Relationship Status Dates Dr. Tate Alcazar MD Primary Care Provider Acti ve Start: January 21, 2025 End: January 21, 2025 Dr. Tate Alcazar MD Referring Provider Active Start: January 21, 2025 End: January 21, 2025 Dr. Chris Rocha MD Attending Provider Active Start: January 21, 2025 End: January 21, 2025 Team Status: Inactive Member Role/Relationship Status Dates Dr. Tate Alcazar MD Primary Care Provider Acti ve Start: April 17, 2025 End: April 17, 2025 Dr. Tate Alcazar MD Attending Provider Active Start: April 17, 2025 End: April 17, 2025 Dr. Tate Alcazar MD Referring Provider Active Start: April 17, 2025 End: April 17, 2025 Team Status: Inactive Member Role/Relationship Status Dates Dr. Tate Alcazar MD Primary Care Provider Acti ve Start: April 30, 2025 End: April 30, 2025 Dr. Tate Alcazar MD Referring Provider Active Start: April 30, 2025 End: April 30, 2025 Dr. Chris Rocha MD Attending Provider Active Start: April 30, 2025 End: April 30, 2025 Team Status: Inactive Member Role/Relationship Status Dates Dr. Tate Alcazar MD Primary Care Provider Acti ve Start: April 30, 2025 End: April 30, 2025 Dr. Chris Rocha MD Attending Provider Active Start: April 30, 2025 End: April 30, 2025 Dr. Chris Rocha MD Referring Provider Active Start: April 30, 2025 End: April 30, 2025 [employer] Maintainer Relationship Specialty Start Date End Date Tate Alcazar [address] [facility] [place] [place] [address] PCP - General Family Medicine 02/04/25 Team Status: Inactive Member Role/Relationship Status Dates Dr. Tate Alcazar MD Primary Care Provider Acti ve Start: May 12, 2025 End: May 12, 2025 Dr. Tate Alcazar MD Attending Provider Active Start: May 12, 2025 End: May 12, 2025 Dr. Tate Alcazar MD Referring Provider Active Start: May 12, 2025 End: May 12, 2025 Team Status: Active Member Role/Relationship Status Dates Dr. Tate Alcazar MD Primary Care Provider Acti ve Start: May 14, 2025 Dr. Tate Aclazar MD Attending Provider Active Start: May 14, 2025 Dr. Tate Alcazar MD Referring Provider Active Start: May 14, 2025 Team Status: Inactive Member Role/Relationship Status Dates Dr. Tate Alcazar MD Primary Care Provider Acti ve Start: May 14, 2025 End: May 14, 2025 Dr. Tate Alcazar MD Attending Provider Active Start: May 14, 2025 End: May 14, 2025 Dr. Tate Alcazar MD Referring Provider Active Start: May 14, 2025 End: May 14, 2025 (unrecognized sect ion and content) No Status Records FoundNo Status Records Found INFORMATION SOURCE (unrecogn ized section and content) DATE CREATED AUTHOR 04/03/2025 [facility] DATE CREATED AUTHOR AUTHOR'S ORGANIZ ATION 07/28/2025 [facility] FOR RECORDS PERTAINING TO PATIENTS WHO ARE OR HAVE BEEN ENROLLED IN A CHEMICAL DEPENDENCY/SUBSTANCEABUSE PROGRAM, SOME INFORMATION MAY BE OMITTED. This clinical summary was aggregated from multiple sources. Caution should be exercised in using it in the provision of clinical care. This summary normalizes information from multiple sources, and as a consequence, information in this document may materially change the coding, format and clinical context of patient data. In addition, data may be omitted in some cases. CLINICAL DECISIONS SHOULD BE BASED ON THE PRIMARY CLINICAL RECORDS. [employer] [facility]. provides no warranty or guarantee of the accuracy or completeness of information in this document.
== END | disposition home or self-care (01) ==
LOC: MRI 15:27
PROVIDERS: PCP Family Medicine; Referring Provider Psychiatry & Neurology Neurology; Visit Provider Psychiatry & Neurology Neurology
DX: R26.9 Unspecified abnormalities of gait and mobility (principal); F03.90 Unspecified dementia, unspecified severity, without behavioral disturbance, psychotic disturbance, mood disturbance, and anxiety
CPT/HCPCS: 70551